=== PATIENT | female | born 1950 | race Caucasian/White ===

== ENCOUNTER → 2017-06-14 08:04 | Outpatient (CLI) | payer MEDICARE, SELFPAY ==
[2017-06-14 10:08] LABS: Basophil# 0.03 X10^3/uL; Basophil% 0.5 % (0-1); Eosinophil# 0.15 X10^3/uL; Eosinophils% 2.5 % (0-5); Hematocrit 26.4 % (37-47); Hemoglobin 8.1 g/dl (12.0-15.0); Lymphocyte % 38.5 % (19-41); Mean Corp Hgb Conc 30.7 g/gl (32-36); Mean Corpuscular Hgb 27.8 pg (27.0-32.0); Mean Corpuscular Volume 90.7 fL (81-99); Mean Platelet Vol. 11.2 fl (6.2-12.0); Monocyte# 0.44 X10^3/uL; Monocyte% 7.4 % (0-10); Neutrophil # 3.04 X10^3/uL (2.7-7.7); Neutrophil % 50.9 % (47-70); Platelet Count 289 K/mm3 (150-450); RBC Distribution Width CV 14.6 % (11.6-14.6); RBC Distribution Width SD 47.6 fl (35.1-43.9); Red Blood Count 2.91 M/mm3 (4.2-5.4)
[2017-06-14 10:13] LABS: POSITIVE COUNT NO; POSITIVE DIFFERENTIAL NO; POSITIVE MORPHOLOGY NO
[2017-06-14 10:19] LABS: Anion Gap 7 (5-15); BUN 12 mg/dL (7-18); Calcium,Total 8.3 mg/dL (8.5-10.1); Chloride 110 mmol/L (98-107); Creatinine, Serum 0.86 mg/dL (0.55-1.02); EST Glomerular Filtration Rate 71 mL/min (>60); Est Glom Filt Rate - Afr Amer 85 mL/min (>60); Glucose 99 mg/dL (70-110); Sodium Level 143 mmol/L (136-145)
[2017-06-14 10:31] LABS: International Normalized Ratio 2.5; Prothrombin Time (Protime)PT. 25.6 SECONDS (11.7-14.9)
== END ==
PROVIDERS: Family Provider Family Medicine; PCP Family Medicine; Visit Provider Family Medicine
DX: R10.13 Epigastric pain (principal); Z79.01 Long term (current) use of anticoagulants
CPT/HCPCS: 36415; 80048; 85025; 85610

== ENCOUNTER → 2017-06-17 07:00 | Outpatient (CLI) | payer MEDICARE, SELFPAY ==
[2017-06-17 11:23] LABS: International Normalized Ratio 1.6; Prothrombin Time (Protime)PT. 18.2 SECONDS (11.7-14.9)
== END ==
PROVIDERS: Family Provider Family Medicine; PCP Family Medicine; Visit Provider Family Medicine
DX: D64.9 Anemia, unspecified (principal)
CPT/HCPCS: 36415; 85610

== ENCOUNTER → 2017-06-18 08:30 | Outpatient (CLI) | payer MEDICARE, SELFPAY ==
[2017-06-18 09:46] LABS: Absolute Lymphocyte Count 2.75 X10^3/ul (0.83-4.51); Absolute Neutrophil Count 3.7 X10^3/uL (2.0-7.7); Basophil# 0.04 X10^3/uL; Basophil% 0.6 % (0-1); Eosinophil# 0.16 X10^3/uL; Eosinophils% 2.2 % (0-5); Hematocrit 28.7 % (37-47); Hemoglobin 8.7 g/dl (12.0-15.0); Lymphocyte # 2.75 X10^3/ul (4.0); Lymphocyte % 38.5 % (19-41); Mean Corp Hgb Conc 30.3 g/gl (32-36); Mean Corpuscular Hgb 27.4 pg (27.0-32.0); Mean Corpuscular Volume 90.3 fL (81-99); Mean Platelet Vol. 10.2 fl (6.2-12.0); Monocyte# 0.49 X10^3/uL; Monocyte% 6.9 % (0-10); Neutrophil % 51.8 % (47-70); Platelet Count 394 K/mm3 (150-450); RBC Distribution Width CV 14.1 % (11.6-14.6); RBC Distribution Width SD 46.8 fl (35.1-43.9); Red Blood Count 3.18 M/mm3 (4.2-5.4); White Blood Count 7.1 K/mm3 (4.4-11.0)
[2017-06-18 09:48] LABS: POSITIVE COUNT NO; POSITIVE DIFFERENTIAL NO; POSITIVE MORPHOLOGY NO
[2017-06-18 10:10] LABS: Ferritin 10 ng/mL (8-252); Iron 23 ug/dL (50-170); Iron Binding Capacity,Total 342 ug/dL (250-450)
[2017-06-19 10:00] LABS: Vitamin B12 178 pg/mL (211-911)
== END ==
PROVIDERS: Family Provider Family Medicine; PCP Family Medicine; Visit Provider Family Medicine
DX: D64.9 Anemia, unspecified (principal)
CPT/HCPCS: 82607; 82728; 82746; 83540; 83550; 85025

== ENCOUNTER 2017-06-27 11:32 | Day surgery (SDC) | payer MEDICARE, SELFPAY ==
[2017-06-27] VITALS (7 sets, daily range): BP systolic 93–127; BP diastolic 61–90; PULSE 75–114; RESP 16; TEMP 36.3–36.9; O2SAT 98–100; BMI 42.3
--- NOTE | 2017-06-27 | IMM_PTH ---
PATIENT: TIKA BAKER LOC: EN U#:[id number] AGE/SX: 67/F ROOM: RE06/27/[address]: Dr. Lizeth Hernandez MD : 1950 BED: DIS: 06/27/2017 SPEC #: [id number] RECD: 06/28/17 11:42 STATUS: ANA REQ #: [id number] SILVIA: 06/27/17 00:[address]: Lizeth Hernandez DEPT: IMMUNOHISTOCHEMISTRY RECD BY: Gemma Simon ENTERED: 06/28/17 11:43 SP TYPE: IMMUNO OTHR DR: Dr. Paco Wilson MD Tissues: Stomach, NOS Procedures: H Pylori (initial) PHYSICIAN & INSTITUTION [place] [id number] SPECIMEN INFORMATION: Tissue Source: Antrum biopsy Clinical Info: Anemia and positive occult blood test Specimen Number: [id number] CPT code: 30565 METHODOLOGY: Deparaffinized sections of prefer/formalin-fixed tissue or PAP/DQ stained slides are incubated with monoclonal/polyclonal antibodies/oligonucleotide probes. Localization is made via biotin free immunoperoxidase method. Appropriate controls are performed and reacted as expected. Results on target cell population are indicated in the following table: RESULTS: ANTIBODY / CLONE RESULT H Pylori (polyclonal) negative These tests were developed and their performance characteristics determined by [facility]. They may not have been cleared or approved by the U.S. Food and Drug Administration. The FDA has determined that such clearance or approval is not necessary. INTERPRETATION: Antrum biopsy: Negative for Helicobacter pylori organisms. BRIA:montez 06/28/17
[2017-06-27 12:00] LABS: Prothrombin Time Fingerstick 12.7 SEC (11.9-14.4)
--- NOTE | 2017-06-27 12:32 | EGD_PTH ---
PATIENT: TIKA BAKER LOC: EN U#:[id number] AGE/SX: 67/F ROOM: RE06/27/[address]: Dr. Lizeth Hernandez MD : 1950 BED: DIS: 06/27/2017 SPEC #: [id number] RECD: 06/27/17 13:37 STATUS: ANA JOHN #: [id number] SILVIA: 06/27/17 12:[address]: Lizeth Hernandez DEPT: SURGICAL PATHOLOGY RECD BY: Harshil Ghotra ENTERED: 06/27/17 14:12 SP TYPE: EGD BIOPSY OTHR DR: Dr. Paco Wilson MD Tissues: Gastric mucous membrane Procedures: Surgery Specimen Level IV HEADER OPERATION: EGD with biopsy PRE-OP DIAGNOSIS: Anemia and positive occult blood test TISSUE SUBMITTED: Antrum biopsy for path and H. pylori MICROSCOPIC DIAGNOSIS Antrum, biopsy: Mild gastritis. SJ:montez 06/28/17 COMMENT The results of immunohistochemistry for Helicobacter pylori will be reported separately ([id number]). MICROSCOPIC DESCRIPTION Slides are reviewed. The specimen shows fragments of gastric mucosa with chronic inflammatory cell infiltrates in the lamina propria consisting of lymphocytes and plasma cells, consistent with mild chronic gastritis. GROSS DESCRIPTION Received in fixative is one container labeled with the patient's name and designated antrum biopsy for path and H. pylori. The specimen consists of one irregular fragment of light nassar soft tissue that measures 0.4 x 0.2 x 0.1 cm. The specimen is totally submitted in one cassette. / SJ:rg 06/27/17 TC:3 CPT: 15147
--- NOTE | 2017-06-28 12:53 | PCM.OPRPT ---
Report of Operation Date of Procedure: 06/28/17 Pre-Operative Diagnosis: Anemia, dark stools Post-Operative Diagnosis: Mild gastritis, small hiatal hernia, normal colon Surgery/Procedure Performed:: EGD with biopsy, colonoscopy Type of Anesthesia:: MAC Anesthesiologist: Christiano Sosa Specimen's removed: 1. Antral biopsy Estimated Blood Loss (mL): Minimal Description of Procedure: Procedure: EGD biopsy After obtaining informed consent, the endoscope was passed under direct visualization. Throughout the procedure, patient's blood pressure, pulse, oxygen saturations were monitored continuously by anesthesia. The endoscope was introduced through the mouth and advanced to the 2nd part of the duodenum. The upper GI endoscopy was accomplished without difficulty. Patient tolerated procedure well. Findings: Small hiatal hernia was present about 2-3 cm. Mild erythematous mucosa found gastric antrum. Biopsies were taken with cold biopsy for histology. Estimated blood loss was minimal. The duodenum was normal. Impression: 1. Small hiatal hernia 2. Mild erythematous mucosa in the antrum. Biopsied. 3. Normal examined duodenum Recommendations: Await biopsy, obvious source of bleeding Procedure: Colonoscopy After reviewing the risks benefits, the patient was deemed in satisfactory condition to undergo procedure. After obtaining informed consent, the scope was passed under direct visualization. Throughout the procedure, the patient's blood pressure pulse and position saturations were monitored continuously anesthesia. The colonoscope was introduced through the anus and advanced to the cecum, identified by the appendiceal orifice, IC valve and transillumination. The colonoscopy was performed without difficulty. The patient tolerated procedure well. Quality of bowel prep was good. Findings: The perianal and digital rectal exam were normal. The colon (entire examined portion) appeared normal. Retroflexed view of the distal rectum and anal verge was normal and showed no anal or rectal abnormalities Impression: 1. The entire colon is normal. 2. The distal rectal and anal verge were normal on retroflexed view. Recommendations: Repeat colonoscopy in 10 years for screening purposes depending on overall health at that time. - Complications none
== END 2017-06-27 14:10 | disposition home or self-care (01) ==
LOC: EN 11:32 → AC 11:34
PROVIDERS: Family Provider Family Medicine; PCP Family Medicine; Visit Provider Surgery
PROC: 0DJD8ZZ Inspection of Lower Intestinal Tract, Via Natural or Artificial Opening Endoscopic (ICD-10-PCS; CPT 45378; principal; 2017-06-27 12:30)
DX: K29.70 Gastritis, unspecified, without bleeding (principal); K44.9 Diaphragmatic hernia without obstruction or gangrene; D64.9 Anemia, unspecified; I10 Essential (primary) hypertension; E78.5 Hyperlipidemia, unspecified; Z86.718 Personal history of other venous thrombosis and embolism; K58.1 Irritable bowel syndrome with constipation; J45.909 Unspecified asthma, uncomplicated; Z87.19 Personal history of other diseases of the digestive system; Z78.0 Asymptomatic menopausal state; Z96.653 Presence of artificial knee joint, bilateral; Z79.01 Long term (current) use of anticoagulants; Z79.899 Other long term (current) drug therapy
CPT/HCPCS: 43239; 45378; 36416; 85610; 88305; 88342; J7120

== ENCOUNTER → 2017-07-02 09:36 | Outpatient (CLI) | payer MEDICARE, SELFPAY ==
[2017-07-02 12:32] LABS: Hematocrit 28.1 % (37-47); Hemoglobin 8.3 g/dl (12.0-15.0); Mean Corp Hgb Conc 29.5 g/gl (32-36); Mean Corpuscular Hgb 26.2 pg (27.0-32.0); Mean Corpuscular Volume 88.6 fL (81-99); Mean Platelet Vol. 11.1 fl (6.2-12.0); Platelet Count 281 K/mm3 (150-450); RBC Distribution Width CV 14.1 % (11.6-14.6); Red Blood Count 3.17 M/mm3 (4.2-5.4); Scan Indicated on CBC? Y/N NO
[2017-07-02 12:35] LABS: Prothrombin Time (Protime)PT. 12.6 SECONDS (11.7-14.9)
== END ==
PROVIDERS: Family Provider Family Medicine; PCP Family Medicine; Visit Provider Family Medicine
DX: I82.409 Acute embolism and thrombosis of unspecified deep veins of unspecified lower extremity (principal)
CPT/HCPCS: 36415; 85027; 85610

== ENCOUNTER → 2017-07-15 10:33 | Outpatient (CLI) | payer MEDICARE, SELFPAY ==
[2017-07-15 12:21] LABS: Absolute Lymphocyte Count 1.68 X10^3/ul (0.83-4.51); Absolute Neutrophil Count 3.2 X10^3/uL (2.0-7.7); Basophil# 0.02 X10^3/uL; Basophil% 0.4 % (0-1); Eosinophil# 0.13 X10^3/uL; Eosinophils% 2.4 % (0-5); Hematocrit 33.4 % (37-47); Hemoglobin 9.9 g/dl (12.0-15.0); Lymphocyte # 1.68 X10^3/ul (4.0); Lymphocyte % 30.4 % (19-41); Mean Corp Hgb Conc 29.6 g/gl (32-36); Mean Corpuscular Volume 87.7 fL (81-99); Mean Platelet Vol. 10.6 fl (6.2-12.0); Monocyte# 0.48 X10^3/uL; Monocyte% 8.7 % (0-10); Neutrophil # 3.22 X10^3/uL (2.7-7.7); Neutrophil % 58.1 % (47-70); Platelet Count 310 K/mm3 (150-450); RBC Distribution Width CV 17.5 % (11.6-14.6); Red Blood Count 3.81 M/mm3 (4.2-5.4); White Blood Count 5.5 K/mm3 (4.4-11.0)
[2017-07-15 12:35] LABS: POSITIVE COUNT NO; POSITIVE DIFFERENTIAL NO; POSITIVE MORPHOLOGY NO
== END ==
PROVIDERS: Family Provider Family Medicine; PCP Family Medicine; Visit Provider Family Medicine
DX: D51.9 Vitamin B12 deficiency anemia, unspecified (principal)
CPT/HCPCS: 36415; 85025

== ENCOUNTER → 2017-08-02 14:26 | Outpatient (CLI) | payer MEDICARE, SELFPAY ==
--- NOTE | 2017-08-02 14:28 | VDLE_ITS ---
Reason For Study: LEG PAIN RIGHT LEFT CFV is compressible, spontaneous, phasic, GSV is normal. competent and demonstrates normal CFV is compressible, spontaneous, phasic, augmentation. competent, and demonstrates normal Procedure augmentation. Exam performed in department. FV is compressible, spontaneous, phasic, A preliminary report was called and/or faxed competent and demonstrates normal to Dr. Rde. augmentation. POP V is compressible, spontaneous, phasic, competent and demonstrates normal augmentation. T/P Trunk is compressible. PTV is compressible. LT PerV is compressible. Soleus vein is dilated and non-compressible. Interpretation Summary Acute deep vein thrombosis is noted in the left soleus vein. The remainder of the left lower extremity deep venous system is patent and compressible. Valvular competence appears intact within the proximal deep venous system on the left . The left greater saphenous vein appears patent and compressible segmentally. Ordering Physician: Rafael Red Referring Physician: Lizeth Hernandez Performed By: Cinda Ballard RVT
== END ==
PROVIDERS: Family Provider Family Medicine; PCP Family Medicine; Visit Provider Family Medicine
DX: M79.89 Other specified soft tissue disorders (principal)
CPT/HCPCS: 93971

== ENCOUNTER 2017-08-02 15:02 | Emergency (ER) | payer MEDICARE, SELFPAY ==
[2017-08-02 15:03] VITALS: BP 158/115; PULSE 94; RESP 16; TEMP 36.7; O2SAT 98; BMI 43.3
--- NOTE | 2017-08-02 15:19 | EKG12_ITS ---
Test Reason : BLOOD CLOT Blood Pressure : / mmHG Vent. Rate : 080 BPM Atrial Rate : 080 BPM P-R Int : 172 ms QRS Dur : 086 ms QT Int : 370 ms P-R-T Axes : 023 -03 019 degrees QTc Int : 426 ms Normal sinus rhythm Inferior infarct , age undetermined Abnormal ECG Confirmed by MT QUIROGA ([id number]), photo editor VALDO BARNES ([id number]) on 08/05/2017 1:31:23 PM Referred By: EUSEBIA Confirmed By:MT QUIROGA
--- NOTE | 2017-08-02 15:19 | CT_ITS ---
STUDY: CTA CHEST REASON FOR EXAM: Female, 67 years old. Dyspnea, recent DVT RADIATION DOSAGE (If Supplied By Facility): CTDIvol = ( 19.00 ) mGy, DLP = ( 611.89 ) mGycm TECHNIQUE: The examination was performed with the intravenous administration of 100 ml of Isovue 370 contrast material. Post-processing of the angiographic images was performed, with multiplanar reformation and 3D reconstruction. Individualized dose optimization techniques were used for this CT. COMPARISON: Prior study of 01/24/2016 FINDINGS: There is limited enhancement of the main pulmonary artery and right and left pulmonary arteries. There is limited enhancement of the bilateral peripheral pulmonary arteries. Normal thoracic aorta and visualized great vessels. There is no demonstrated aortic dissection. Cardiomegaly is present. Coronary arterial calcifications are seen. There is no pericardial effusion. Normal mediastinum. Normal hilar regions. Normal visualized trachea and bronchi. The lungs are well expanded. There is a stable 6 mm nodule of the right upper lobe apex. Normal pleura. Normal chest wall structures. There are mild diffuse degenerative changes of the visualized thoracolumbar spine. There is a stable 1.7 cm cyst of the anterior left hepatic lobe. There is a small hiatal hernia. CT/CTA Chest W/WO Contrast IMPRESSION: Limited study secondary to poor opacification of the pulmonary arterial tree. There is no demonstrable evidence of pulmonary embolism. Cardiomegaly. Coronary arterial calcifications are present. Stable 6 mm nodule of the right upper lobe apex. Stable 1.7 cm cyst of the anterior left hepatic lobe. Small hiatal hernia. Electronically Signed: Sanford Maloney MD at 17:08 EDT , Service support ,
[2017-08-02 16:08] LABS: Anion Gap 8 (5-15); BUN 9 mg/dL (7-18); BUN/Creat Ratio 11.5 RATIO (10-20); Calcium,Total 8.5 mg/dL (8.5-10.1); Chloride 111 mmol/L (98-107); Creatinine, Serum 0.79 mg/dL (0.55-1.02); EST Glomerular Filtration Rate 78 mL/min (>60); Est Glom Filt Rate - Afr Amer 94 mL/min (>60); Estimated Creatinine Clearance 63.88 ml/min; Glucose 78 mg/dL (74-106); Potassium 3.8 mmol/L (3.5-5.1); Sodium Level 145 mmol/L (136-145)
[2017-08-02 16:12] LABS: Absolute Lymphocyte Count 2.45 X10^3/ul (0.83-4.51); Absolute Neutrophil Count 3.7 X10^3/uL (2.0-7.7); Basophil# 0.04 X10^3/uL; Basophil% 0.6 % (0-1); Eosinophils% 1.5 % (0-5); Hematocrit 36.1 % (37-47); Lymphocyte # 2.45 X10^3/ul (4.0); Lymphocyte % 36.2 % (19-41); Mean Corp Hgb Conc 30.5 g/gl (32-36); Mean Corpuscular Hgb 26.6 pg (27.0-32.0); Mean Corpuscular Volume 87.2 fL (81-99); Mean Platelet Vol. 11.5 fl (6.2-12.0); Monocyte% 7.4 % (0-10); Neutrophil # 3.67 X10^3/uL (2.7-7.7); Neutrophil % 54.2 % (47-70); Platelet Count 217 K/mm3 (150-450); RBC Distribution Width CV 16.7 % (11.6-14.6); RBC Distribution Width SD 52.8 fl (35.1-43.9); Red Blood Count 4.14 M/mm3 (4.2-5.4); White Blood Count 6.8 K/mm3 (4.4-11.0)
[2017-08-02 16:13] LABS: POSITIVE COUNT NO; POSITIVE DIFFERENTIAL NO; POSITIVE MORPHOLOGY NO
--- NOTE | 2017-08-02 17:36 | ED.DCSUM_ITS ---
- ER Visit Summary Date of Service: 08/02/17 Chief Complaint: DVT soleus vein left lower extremity and dyspnea at rest and exertion History of Present Illness: The patient is a 67 F who has history of PE and DVT was sent to ER to evaluate her dyspnea since she has a history of PE and DVT with recent diagnosis of left soleus DVT. She had an outpatient ultrasound performed today. She denies any chest pain of any type. She denies fever, chills night sweats. She denies cough. She denies any GI, or musculoskeletal symptoms other than left calf pain. She denies paresthesia, anesthesia or motor weakness. She recently had a GI bleed and Coumadin was discontinued. Physical Examination: Vital signs are remarkable for an elevated blood pressure 158/115; otherwise her vital signs are normal. Head is atraumatic normocephalic. Pupils are equal round reactive. Extraocular muscles are intact. TMs are pearly white with landmarks noted. Nares patent with no drainage. Posterior pharynx without erythema or exudate. Uvula is midline. There is no dysphonia or dysphasia. Trachea is midline. There is no stridor with auscultation of the neck. Heart is regular without murmur, gallop or rub. S1 and S2 are normal. Lungs are clear to auscultation with good movement of air bilaterally. Abdomen soft nontender. The left lower stomach is swollen with pain palpation the left calf. Test Results: Day of the chest was unremarkable for clot in major pulmonary vessels. EKG is normal with a rate of 80 and I am in disagreement with the computer interpretation of inferior infarct. Electric panel is normal and specifically BUN and creatinine. H&H is 11.0 and 36.1. The venous duplex study report was not available. Dr. Cara Ramirez who took the physician call in from Dr. Wilson documented the location of the clot. Emergency Department Course and Treatment: Since patient cannot be anticoagulated and complains of dyspnea and dyspnea on exertion after recent long distance trip with a proven DVT a CTA was obtained to evaluate for pulmonary embolus. Since there is no evidence of pulmonary embolus based on the literature outpatient ultrasound was ordered for August 05, August 09 and August 16. Treatment Plan: Appropriate home-going instruction and outpatient serial venous duplex studies to evaluate for propagation. Patient was informed if this does propagate into the proximal popliteal vein or femoral vein she will require a [place] filter since she cannot be anticoagulated. Disposition: Charge to home after informing Dr. Wilson of ER workup Impression: 1. DVT left soleus vein 2. Dyspnea unknown etiology 3. History of hypertension 4. History of recent significant upper GI bleed This note was generated with [employer] dictation software. It may contain incorrect words, spelling, and punctuation that were not noted in review of the chart prior to signing ED Disposition - Plan for ED Patient: Disposition: Home or Assisted Living Chief Complaint: Lower Extremity Injury Instructions: ED DVT Referrals: Paco Wilson MD [Primary Care Provider] - As Needed Additional Instructions: You will need to call the outpatient vascular lab to arrange for repeat ultrasound on Saturday, August 05, Saturday, August 09 and August 16.
[2017-08-02 17:47] VITALS: BP 139/76; PULSE 81; RESP 16; O2SAT 97
== END 2017-08-02 17:47 | disposition home or self-care (01) ==
PROVIDERS: Emergency Provider Emergency Medicine; Family Provider Family Medicine; PCP Family Medicine
DX: I82.4Z2 Acute embolism and thrombosis of unspecified deep veins of left distal lower extremity (principal); R06.00 Dyspnea, unspecified; I10 Essential (primary) hypertension; M79.89 Other specified soft tissue disorders; E78.00 Pure hypercholesterolemia, unspecified; Z86.718 Personal history of other venous thrombosis and embolism; Z86.711 Personal history of pulmonary embolism; Z87.19 Personal history of other diseases of the digestive system; Z79.51 Long term (current) use of inhaled steroids; Z79.899 Other long term (current) drug therapy
CPT/HCPCS: 71275; 80048; 85025; 93005; 93971; 99283; Q9967

== ENCOUNTER → 2017-08-05 13:48 | Outpatient (CLI) | payer MEDICARE, SELFPAY ==
--- NOTE | 2017-08-05 14:06 | VDLE_ITS ---
Reason For Study: F/U LLE DVt Procedure LEFT Exam performed in department. GSV is normal. A preliminary report was called and/or faxed CFV is compressible, spontaneous, phasic, to Dr. Wilson. competent, and demonstrates normal augmentation. FV is compressible, spontaneous, phasic, competent and demonstrates normal augmentation. POP V is compressible, spontaneous, phasic, competent and demonstrates normal augmentation. T/P Trunk is compressible. PTV is compressible. LT PerV is compressible. Soleus vein dilated and non-compressible. No change from previous exam. Interpretation Summary Acute deep vein thrombosis is noted in the left soleus vein. The remainder of the left lower extremity deep venous system is patent and compressible. Valvular competence appears intact within the proximal deep venous system on the left . The left greater saphenous vein appears patent and compressible segmentally. There has been no change since a previous study on 08/02/2017. Ordering Physician: Lalo Hopkins Referring Physician: Paco Wilson Performed By: Cinda Ballard RVT
== END ==
PROVIDERS: Family Provider Family Medicine; PCP Family Medicine; Visit Provider Emergency Medicine
DX: I82.4Z2 Acute embolism and thrombosis of unspecified deep veins of left distal lower extremity (principal)
CPT/HCPCS: 93971

== ENCOUNTER → 2017-08-09 14:02 | Outpatient (CLI) | payer MEDICARE, SELFPAY ==
--- NOTE | 2017-08-09 14:04 | VDLE_ITS ---
Reason For Study: DVT Procedure LEFT Exam performed in department. GSV is normal. A preliminary report was called and/or CFV is compressible, spontaneous, phasic, faxed to DR JEAN-BAPTISTE. competent, and demonstrates normal augmentation. FV is compressible, spontaneous, phasic, competent and demonstrates normal augmentation. POP V is compressible, spontaneous, phasic, competent and demonstrates normal augmentation. T/P Trunk is compressible. PTV is compressible. LT PerV is compressible. RT Soleus V is dilated and noncompressible. Interpretation Summary Acute deep vein thrombosis is noted in the left soleus vein. The remainder of the left lower extremity deep venous system is patent and compressible. Valvular competence appears intact within the proximal deep venous system on the left . The left greater saphenous vein appears patent and compressible segmentally. There has been no significant change since a previous study on 08/05/2017. Ordering Physician: Lalo Hopkins Referring Physician: MARIA G JEAN-BAPTISTE Performed By: Kiki Garcia, RDCS, RVT
== END ==
PROVIDERS: Family Provider Family Medicine; PCP Family Medicine; Visit Provider Emergency Medicine
DX: I82.4Z2 Acute embolism and thrombosis of unspecified deep veins of left distal lower extremity (principal)
CPT/HCPCS: 93971

== ENCOUNTER → 2017-08-12 08:34 | Outpatient (CLI) | payer MEDICARE, SELFPAY ==
[2017-08-12 10:15] LABS: Absolute Lymphocyte Count 2.43 X10^3/ul (0.83-4.51); Basophil# 0.04 X10^3/uL; Basophil% 0.7 % (0-1); Eosinophil# 0.15 X10^3/uL; Eosinophils% 2.4 % (0-5); Hematocrit 39.3 % (37-47); Hemoglobin 12.1 g/dl (12.0-15.0); Lymphocyte # 2.43 X10^3/ul (4.0); Lymphocyte % 39.6 % (19-41); Mean Corp Hgb Conc 30.8 g/gl (32-36); Mean Corpuscular Hgb 26.7 pg (27.0-32.0); Mean Corpuscular Volume 86.6 fL (81-99); Mean Platelet Vol. 11.3 fl (6.2-12.0); Monocyte# 0.55 X10^3/uL; Neutrophil # 2.95 X10^3/uL (2.7-7.7); Neutrophil % 48.1 % (47-70); Platelet Count 287 K/mm3 (150-450); RBC Distribution Width CV 16.2 % (11.6-14.6); RBC Distribution Width SD 51.4 fl (35.1-43.9); Red Blood Count 4.54 M/mm3 (4.2-5.4); White Blood Count 6.1 K/mm3 (4.4-11.0)
[2017-08-12 10:21] LABS: POSITIVE COUNT NO; POSITIVE DIFFERENTIAL NO; POSITIVE MORPHOLOGY NO
== END ==
PROVIDERS: Visit Provider Family Medicine
DX: D53.1 Other megaloblastic anemias, not elsewhere classified (principal)
CPT/HCPCS: 36415; 85025

== ENCOUNTER → 2017-08-16 12:51 | Outpatient (CLI) | payer MEDICARE, SELFPAY ==
--- NOTE | 2017-08-16 12:53 | VDLE_ITS ---
Reason For Study: F/U LLE Soleus V clot Procedure LEFT Exam performed in department. GSV is normal. A preliminary report was called and/or faxed CFV is compressible, spontaneous, phasic, to Dr. Wilson. competent, and demonstrates normal augmentation. FV is compressible, spontaneous, phasic, competent and demonstrates normal augmentation. POP V is compressible, spontaneous, phasic, competent and demonstrates normal augmentation. T/P Trunk is compressible. PTV is compressible. LT PerV is compressible. Soleus V remains non-compressible. No change from previous exam. Interpretation Summary Acute deep vein thrombosis is noted in the left soleus vein. The remainder of the left lower extremity deep venous system is patent and compressible. Valvular competence appears intact within the proximal deep venous system on the left . The left greater saphenous vein appears patent and compressible segmentally. There has been no significant change since a previous study on 08/09/2017. Ordering Physician: Lalo Hopkins Referring Physician: Paco Wilson Performed By: Cinda Ballard RVT
== END ==
PROVIDERS: Family Provider Family Medicine; PCP Family Medicine; Visit Provider Emergency Medicine
DX: I82.4Z2 Acute embolism and thrombosis of unspecified deep veins of left distal lower extremity (principal)
CPT/HCPCS: 93971

== ENCOUNTER → 2017-11-14 17:25 | Outpatient (CLI) | payer MEDICARE, SELFPAY ==
--- NOTE | 2017-11-14 17:28 | CT_ITS ---
STUDY: CT LEFT FOOT REASON FOR EXAM: Female, 67 years old. Osteoarthritis, preop RADIATION DOSAGE (If Supplied By Facility): CTDIvol = ( 15.35 ) mGy, DLP = ( 315.38 ) mGycm TECHNIQUE: Thin section transaxial imaging of the foot was obtained, with sagittal and coronal reconstructed images. Individualized dose optimization techniques were used for this CT. COMPARISON: None. FINDINGS: There is a plantar calcaneal spur. A small enthesophyte is seen at the insertion of the Achilles tendon. There is some joint space narrowing of the calcaneal cuboid joint. There is some sclerosis of the talocalcaneal joint. Degenerative changes are seen within the cuneiforms, with sclerosis and subchondral cysts, greatest at the second and third tarsometatarsal joints. There is mild joint space narrowing at the first tarsal metatarsal joint. Normal metatarsi. Normal metatarsophalangeal joint of the great toe. Normal tibial and fibular sesamoid bones. Normal interphalangeal joint of the great toe. Normal phalanges of the great toe. Normal second through fifth metatarsophalangeal joints. Normal interphalangeal joints and phalanges of the lesser toes. The soft tissue structures are unremarkable. There is no acute fracture. CT/Extremity Lower without Contra IMPRESSION: Degenerative changes within the midfoot, as described above. No acute fracture. Electronically Signed: Garett Oliva DO at 13:10 EDT Tel , Service support ,
== END ==
PROVIDERS: Family Provider Family Medicine; PCP Family Medicine
DX: M19.079 Primary osteoarthritis, unspecified ankle and foot (principal)
CPT/HCPCS: 73700

== ENCOUNTER → 2017-11-18 10:49 | Outpatient (CLI) | payer MEDICARE, SELFPAY ==
[2017-11-18 11:57] LABS: Absolute Lymphocyte Count 1.91 X10^3/ul (0.83-4.51); Absolute Neutrophil Count 2.5 X10^3/uL (2.0-7.7); Basophil# 0.03 X10^3/uL; Basophil% 0.6 % (0-1); Eosinophil# 0.11 X10^3/uL; Eosinophils% 2.2 % (0-5); Hematocrit 42.8 % (37-47); Hemoglobin 13.5 g/dl (12.0-15.0); Lymphocyte # 1.91 X10^3/ul (4.0); Lymphocyte % 39.1 % (19-41); Mean Corp Hgb Conc 31.5 g/gl (32-36); Mean Corpuscular Hgb 27.2 pg (27.0-32.0); Mean Corpuscular Volume 86.1 fL (81-99); Mean Platelet Vol. 11.4 fl (6.2-12.0); Monocyte# 0.34 X10^3/uL; Neutrophil # 2.49 X10^3/uL (2.7-7.7); Neutrophil % 50.9 % (47-70); Platelet Count 228 K/mm3 (150-450); RBC Distribution Width SD 47.2 fl (35.1-43.9); Red Blood Count 4.97 M/mm3 (4.2-5.4); White Blood Count 4.9 K/mm3 (4.4-11.0)
[2017-11-18 11:58] LABS: POSITIVE COUNT NO; POSITIVE DIFFERENTIAL NO; POSITIVE MORPHOLOGY NO
[2017-11-18 12:22] LABS: Vitamin D,25 Hydroxy 17.6 ng/mL (29.95-100.01)
[2017-11-18 12:35] LABS: Anion Gap 7 (5-15); BUN 14 mg/dL (7-18); BUN/Creat Ratio 15.8 RATIO (10-20); Chloride 108 mmol/L (98-107); Cholesterol 171 mg/dL (200); Creatinine, Serum 0.89 mg/dL (0.55-1.02); EST Glomerular Filtration Rate 68 mL/min (>60); Est Glom Filt Rate - Afr Amer 82 mL/min (>60); Glucose 86 mg/dL (74-106); High Density Lipoprotein 51 mg/dL; Potassium 4.3 mmol/L (3.5-5.1); Sodium Level 143 mmol/L (136-145); Thyroid Stim Hormone (TSH) 1.76 uIU/mL (0.358-3.74); Triglycerides 119 mg/dL; Very Low Density Lipoprotein 24 mg/dL (5-40)
== END ==
PROVIDERS: Visit Provider Family Medicine
DX: Z00.00 Encounter for general adult medical examination without abnormal findings (principal); D53.1 Other megaloblastic anemias, not elsewhere classified
CPT/HCPCS: 36415; 80048; 80061; 82306; 84443; 85025

== ENCOUNTER 2018-02-06 17:26 | Emergency (ER) | payer MEDICARE, SELFPAY ==
[2018-02-06 17:28] VITALS: BP 127/57; PULSE 84; RESP 16; TEMP 37.6; O2SAT 98; BMI 42.8
--- NOTE | 2018-02-06 17:50 | US_ITS ---
STUDY: VENOUS DOPPLER ULTRASOUND - LEFT LOWER EXTREMITY REASON FOR EXAM: Female, 67 years old. Left lower extremity swelling TECHNIQUE: Ultrasound evaluation of the deep vein system to include yousif-scale imaging and compression was performed. Yousif-scale imaging and Doppler sonographic evaluation, including duplex spectral analysis and qualitative color flow sonography, was performed. COMPARISON: None. FINDINGS: Common Femoral Vein: Normal compression, spontaneity and augmentation. Normal color Doppler. Common Femoral Vein/Greater Saphenous Junction: Normal compression. Femoral Proximal: Normal compression. Femoral Middle: Normal compression, spontaneity and augmentation. Normal color Doppler. Femoral Distal: Normal compression. Popliteal Vein: Normal compression, spontaneity and augmentation. Normal color Doppler. Posterior Tibial Vein: Normal compression. Peroneal Vein: Normal compression. US/Venous Duplex Imag/Limited/Uni IMPRESSION: Normal venous Doppler ultrasound of the lower extremity. Electronically Signed: Shiva Frost DO at 19:30 EDT Tel [phone], Service support ,
--- NOTE | 2018-02-06 18:26 | ED.VISSUMM ---
- ER Visit Summary Date of Service: 02/06/18 Chief Complaint: Left leg swelling History of Present Illness: The patient is a 67 F who presents with complaint of left leg swelling. Patient had foot surgery at the [facility] on December 20. She was using a scooter to get around until a few weeks ago. At that time she began to use a boot orthosis and walk on her foot began to have some swelling. Past couple days as well as been significantly more worse and she has been elevating it and doing what she was told that it continues. She states she is on Eliquis and has not missed any doses for more than a month and that is due to prior DVT. Patient states that this leg does not feel like her other DVTs. She contacted her surgeon's office and was told to get a duplex ultrasound. Physical Examination: Afebrile vital signs are stable Gen: Well-nourished well-developed Head: Normocephalic atraumatic Eyes: Perrl EOMI ENT: TMs clear no rhinorrhea moist mucous membranes Neck: Supple no lymphadenopathy no JVD nontender CVS: Regular rate rhythm no murmurs normal S1-S2 Respiratory: No distress clear to auscultation bilaterally chest nontender Abdomen: Soft nontender nondistended normal bowel sounds no masses Back: Nontender Extremity: Nontender left leg measures 21 cm 2 fingerbreadths below the tibial tuberosity and the right measures 20.5 cm. There is left greater than right edema at the ankle and foot. There are no cords. Skin: Normal color no rash Neuro: alert orientated ?3 CN II-XII intact normal strength sensation reflexes gait cerebellar Psych: Normal affect normal mood Test Results: Duplex ultrasound was negative Emergency Department Course and Treatment: Patient will be discharged home. I will write for Lasix. She is to use compression stockings and elevate. She is to follow-up with her doctor Impression: 1. Lymphedema This note was generated with [employer] dictation software. It may contain incorrect words, spelling, and punctuation that were not noted in review of the chart prior to signing ED Disposition - Plan for ED Patient: Disposition: Home or Assisted Living Chief Complaint: Lower Extremity Injury Instructions: ED Lymphedema Prescriptions: Furosemide [Lasix] 20 mg PO DAILY #7 tab Referrals: Paco Wilson MD [Primary Care Provider] - 1 Week if not improving
[2018-02-06 18:35] VITALS: BP 132/78; PULSE 87; RESP 16; O2SAT 98
== END 2018-02-06 18:47 | disposition home or self-care (01) ==
PROVIDERS: Emergency Provider Emergency Medicine; Family Provider Family Medicine; PCP Family Medicine
DX: I89.0 Lymphedema, not elsewhere classified (principal); Z86.718 Personal history of other venous thrombosis and embolism; Z79.02 Long term (current) use of antithrombotics/antiplatelets
CPT/HCPCS: 93971; 99282

== ENCOUNTER → 2018-05-29 10:07 | Outpatient (CLI) | payer MEDICARE, SELFPAY ==
--- NOTE | 2018-05-29 10:10 | BI_ITS ---
MAMMOGRAPHY - BILATERAL SCREENING REASON FOR EXAM: Female, 68 years old. Routine annual screening examination. PERTINENT HISTORY: Father with breast cancer. Remote right excisional breast biopsy. TECHNIQUE: Digital bilateral breast daniel (3D mammographic acquisition) in the CC and MLO projections. 2-D mediolateral oblique (MLO) and craniocaudad (CC) views of both breasts were obtained. CAD: Full Field Digital Mammography with Computer Added Detection was performed. COMPARISON: Comparison is made with prior study dated March 12, 2016 and April 09, 2017. FINDINGS: Breast Composition: There are scattered areas of fibroglandular density. There are no dominant masses or suspicious calcifications. No other significant abnormalities are identified. There has been no significant change since the prior study. BI/SCREENING MAMM (CAD), BILAT IMPRESSION: Stable bilateral screening mammogram. Yearly follow-up mammogram recommended. (A) ASSESSMENT CATEGORY: BIRADS Category 1: Negative. A letter regarding these results will be sent to the patient by the facility within 30 days. Approximately 10% of breast cancers are not detected by mammography. A normal mammogram should not delay biopsy of a clinically suspicious abnormality. [id number] Electronically Signed: Varghese Lion MD at 14:20 EST Tel [phone], Service support ,
== END ==
PROVIDERS: Family Provider Family Medicine; PCP Family Medicine; Visit Provider Family Medicine
DX: Z12.31 Encounter for screening mammogram for malignant neoplasm of breast (principal)
CPT/HCPCS: 77063; 77067

== ENCOUNTER 2018-09-06 06:40 | Emergency (ER) | payer MEDICARE, SELFPAY ==
[2018-09-06 06:40] VITALS: BMI 42.3
[2018-09-06 06:41] VITALS: BP 183/119; PULSE 121; RESP 22; TEMP 36.8; O2SAT 99; BMI 43.2
--- NOTE | 2018-09-06 07:13 | ED.VISSUMM ---
- ER Visit Summary Date of Service: 09/06/18 Chief Complaint: Left lumbar back pain History of Present Illness: The patient is a 68 F who has left lumbar back pain. 6 days ago this pain started to get worse. Is been intermittent but now it is constant. It sharp in the left lumbar area. It does not radiate. Movement makes it worse and remaining still makes it better. Denies any numbness or tingling. No radiation to the legs. Denies any bowel or bladder incontinence. She describes the pain as spasms. She tried Tylenol and Flexeril but it did not help. She does have a walker at home to help her ambulate. Physical Examination: Vital signs are reviewed. HEENT exam unremarkable. Heart is tachycardic and regular rhythm without murmurs. Lungs are clear. Abdomen is soft. Her back is tender in the left lumbar paraspinal area. There is no midline tenderness. Her neurologic exam including reflexes is normal. Test Results: None performed Emergency Department Course and Treatment: The patient was given morphine and Norflex. Upon reevaluation she was much improved. She is requesting to go home with some medications. She is allergic to many narcotic pain medications. I will give her Toradol along with Zanaflex. She will follow-up with her PCP. Treatment Plan: [] Disposition: Discharge Impression: Lumbar strain This note was generated with [employer] dictation software. It may contain incorrect words, spelling, and punctuation that were not noted in review of the chart prior to signing ED Disposition - Plan for ED Patient: Referrals: Paco Wilson MD [Primary Care Provider] -
[2018-09-06] MEDS: Morphine 4 MG/ML Syringe SC (07:31)
[2018-09-06] MEDS: Orphenadrine 60 MG/2 ML Ampul IM (07:31)
--- NOTE | 2018-09-06 07:57 | ED.DEP ---
ED Disposition - Plan for ED Patient: Disposition: Home or Assisted Living Instructions: ED Neck Back Pain General Prescriptions: Ketorolac [Toradol] 10 mg PO Q6H #12 tab Tizanidine HCl [Zanaflex] 4 mg PO TID #20 tab Referrals: Paco Wilson MD [Primary Care Provider] -
[2018-09-06 08:11] VITALS: BP 140/68; PULSE 76; RESP 18; O2SAT 96
== END 2018-09-06 08:18 | disposition home or self-care (01) ==
PROVIDERS: Emergency Provider Emergency Medicine; Family Provider Family Medicine; PCP Family Medicine
DX: S39.012A Strain of muscle, fascia and tendon of lower back, initial encounter (principal); I10 Essential (primary) hypertension; M19.90 Unspecified osteoarthritis, unspecified site; J45.909 Unspecified asthma, uncomplicated; Z86.718 Personal history of other venous thrombosis and embolism; Z79.51 Long term (current) use of inhaled steroids; Z79.02 Long term (current) use of antithrombotics/antiplatelets; Z79.899 Other long term (current) drug therapy; X58.XXXA Exposure to other specified factors, initial encounter; Y93.89 Activity, other specified; Y92.89 Other specified places as the place of occurrence of the external cause; Y99.8 Other external cause status
CPT/HCPCS: 96372; 99282

== ENCOUNTER → 2019-01-05 | Outpatient (CLI) | payer MEDICARE, SELFPAY ==
--- NOTE | 2019-01-05 11:04 | MRI_ITS ---
HISTORY:SHARP PAIN LATERAL, ANKLE/TARSAL SWELLING X 6MONTHS, PERONEAL TENDINITIS MRI EXAMINATION OF THE Left ANKLE COMPARISON: CT of the left foot obtained on November 14, 2017 TECHNIQUE: Axial T1, T2, 3D gradient echo, STIR, coronal fat-suppressed T2 and sagittal T1 and STIR # of images including paperwork:384 FINDINGS: BONES; postsurgical changes with screws noted within the midfoot incompletely visualized. These are seen in the region of the base of the second and third metatarsal bases as well as the middle and lateral cuneiforms. Subchondral cyst formation and subchondral edema seen at the distal cuneiform and the base of the fourth metatarsal. Also at the base of the fifth metatarsal with osteophyte formation. Subchondral cysts are also seen at the base of the first metatarsal and within the medial cuneiform. There is edema within the medial cuneiform there is most marked at the dorsal surface with spurring seen at the dorsal aspect of the first tarsometatarsal joint. TIBIOTALAR JOINT: There is a minimal joint effusion.. Osteochondral surfaces of the tibiotalar joint are unremarkable. No loose bodies. SUBTALAR JOINT: There is no subtalar joint effusion. Osteochondral sufaces are intact. No loose bodies. Fluid is seen extending dorsal to the anterior lateral talus compatible with a gait and cyst. This is deep to the extensor digitorum tendons OTHER TARSAL JOINTS: The remainter of the visualized joint of the hindfoot and midfoot show no narrowing or effusion. LIGAMENTS: The anterior tibiofibular ligament is thickened and irregular suspect for chronic partial tear.. The posterior tlbiofilular ligament also appears mildly thickened suspect for chronic sprain The anterior talofibular ligament thickened suspect for chronic partial tear. The posterior talofibular ligament is intact. The calcaneofibular ligament is intact. The deltoid ligaments are intact. Spring ligament is intact. The ligaments of the tarasal sinus are intact. TENDONS: The extensor tendons are intact. There is fluid surrounding the peroneus longus and brevis tendons just proximal to the ankle joint compatible with tenosynovitis. The retinaculum is intact Fluid is also seen surrounding the flexor hallucis longus tendon posterior to the tibia and the talus and extending distally past the master knot of Naif. This is compatible with tenosynovitis. This also surrounds the flexor digitorum tendons at the master knot of Naif. Minimal fluid is seen surrounding the flexor digitorum and the posterior tibial tendon at the level of the medial malleolus. This is also seen adjacent to the posterior tibial tendon just proximal to its navicular insertion The Achilles tendon is intact PLANTAR APONEUROSIS: The plantar aponeurosis is unremarkable. NEUROVASCULAR STRUCTURES: The posterior tibial neurovascular bundle appears normal, without intinsic or extrinsic masses or foci or signal alteration. IMPRESSION: Minimal tenosynovitis of the peroneal tendons just proximal to the ankle joint. The retinaculum is intact There is fluid that is seen deep to the extensor digitorum tendons at the level of the distal talus compatible with ganglion cyst Tenosynovitis involving the flexor hallucis tendon as well as the flexor digitorum tendon as discussed. This is most marked involving the flexor hallucis tendon. Minimal tenosynovitis involving the posterior tibial tendon Midfoot arthrodesis as discussed Degenerative changes are seen within the midfoot as discussed Probable chronic partial tear involving the anterior tibiofibular and talofibular ligaments as well as the posterior tibiofibular ligament. Dorsal lateral subcutaneous soft tissue swelling from the midfoot distally at 2255 Reported and signed by: Yue Rodas DO Electronically Signed: Yue Rodas DO at 21:54 EDT Tel , Service support , MRI/Lower Ext Joint Only (Routine)
== END | disposition home or self-care (01) ==
PROVIDERS: Family Provider Family Medicine; PCP Family Medicine
DX: M76.72 Peroneal tendinitis, left leg (principal)
CPT/HCPCS: 73721

== ENCOUNTER → 2019-06-02 13:08 | Outpatient (CLI) | payer MEDICARE, SELFPAY ==
--- NOTE | 2019-06-02 13:10 | BI_ITS ---
MAMMOGRAPHY - BILATERAL SCREENING REASON FOR EXAM: Female, 69 years old. Routine annual screening examination. PERTINENT HISTORY: Father with breast cancer. Remote right excisional breast biopsy. TECHNIQUE: Digital bilateral breast uriel (3D mammographic acquisition) in the CC and MLO projections. 2-D mediolateral oblique (MLO) and craniocaudad (CC) views of both breasts were obtained. CAD: Full Field Digital Mammography with Computer Added Detection was performed. COMPARISON: Comparison is made with prior study dated November 19, 20092018 and April 09, 2017. FINDINGS: Breast Composition: There are scattered areas of fibroglandular density. There are no dominant masses or suspicious calcifications. No other significant abnormalities are identified. There has been no significant change since the prior study. BI/SCREEN MAMM (CAD) W/URIEL BILAT IMPRESSION: Stable bilateral screening mammogram. Yearly follow-up mammogram recommended. (A) ASSESSMENT CATEGORY: BIRADS Category 1: Negative. A letter regarding these results will be sent to the patient by the facility within 30 days. Approximately 10% of breast cancers are not detected by mammography. A normal mammogram should not delay biopsy of a clinically suspicious abnormality. [id number] Electronically Signed: Varghese Lion, at 15:07 EST , Service support ,
== END ==
PROVIDERS: Family Provider Family Medicine; PCP Family Medicine; Referring Provider Family Medicine; Visit Provider Family Medicine
DX: Z12.31 Encounter for screening mammogram for malignant neoplasm of breast (principal)
CPT/HCPCS: 77063; 77067

== ENCOUNTER → 2020-05-25 07:15 | Outpatient (CLI) | payer MEDICARE, SELFPAY ==
[2020-05-02 10:12] VITALS: BMI 43.4
--- NOTE | 2020-05-25 07:21 | MRI_ITS ---
STUDY: MRI LUMBAR SPINE WITHOUT CONTRAST REASON FOR EXAM: Female, 70 years old. stabbing and burning L lower back pain TECHNIQUE: Standardized fat and water weighted pulse sequences were obtained in the sagittal and axial planes. COMPARISON: X-ray 05/02/2020 FINDINGS: T12-L1: Moderate broad disc protrusion asymmetric to the right produces moderate spinal stenosis and mild right neural foraminal stenosis. Normal lumbar lordosis. There is no substantial scoliosis. Normal conus medullaris that terminates at the L1. L1-2: Normal endplates. Normal disc height, hydration and morphology. Normal bilateral facet joints. Normal central canal and bilateral lateral recesses. Normal bilateral intervertebral neural foramina. L2-3: Disc desiccation but no disc protrusion, spinal stenosis, or neural foraminal stenosis. L3-4: Mild bilateral facet hypertrophy and ligament flavum hypertrophy. Moderate bilobed disc protrusion with a left paracentral annular tear produces moderate spinal stenosis with mild bilateral lateral recess stenosis and moderate bilateral neural foraminal stenosis. L4-5: Moderate bilateral facet hypertrophy. 5 mm of anterolisthesis of L4 on L5 with a mild broad disc protrusion produces mild spinal stenosis with mild bilateral lateral recess stenosis but severe bilateral neural foraminal stenosis with effacement of the exiting L4 nerve roots bilaterally. L5-S1: Normal endplates. Normal disc height, hydration and morphology. Normal bilateral facet joints. Normal central canal and bilateral lateral recesses. Normal bilateral intervertebral neural foramina. Normal visualized sacral ala. Normal visualized paraspinous soft tissue structures. MRI/Spine Lumbar (Routine) IMPRESSION: Multilevel degenerative changes, as described above. Electronically Signed: Noah Johansen MD at 8:43 EST Tel , Service support ,
== END ==
PROVIDERS: PCP Family Medicine; Referring Provider Orthopaedic Surgery; Visit Provider Orthopaedic Surgery
DX: M54.16 Radiculopathy, lumbar region (principal)
CPT/HCPCS: 72148

== ENCOUNTER → 2020-06-27 08:52 | Outpatient (CLI) | payer MEDICARE, SELFPAY ==
--- NOTE | 2020-06-27 08:54 | US_ITS ---
PROCEDURES: ULTRASOUND AORTA REASON FOR EXAM: Female, 70 years old. AAA TECHNIQUE: Ultrasound evaluation of the aorta was performed with real-time and static matt-scale imaging. COMPARISON: None. FINDINGS: There is no elongation or tortuosity of the abdominal aorta. Aorta measures: Proximal 1.8 cm. Middle 1.4 cm. Distal 1.3 cm. Aorta measure transversely: Proximal 2.0 cm. Middle 1.4 cm. Distal 1.4 cm. Right iliac artery measures: 0.9 cm. Right iliac artery measure transversely: 1.2 cm. Left iliac artery measures: 1.1 cm. Left iliac artery measure transversely: 1.1 cm. There is no demonstrated aneurysm.. US/Aorta IMPRESSION: Normal abdominal aorta. Electronically Signed: Varghese Lion MD at 14:46 EST , Service support ,
== END ==
PROVIDERS: PCP Family Medicine; Referring Provider Family Medicine; Visit Provider Family Medicine
DX: I71.9 Aortic aneurysm of unspecified site, without rupture (principal)
CPT/HCPCS: 76775

== ENCOUNTER 2020-08-01 14:59 | Outpatient (RCR) | payer MEDICARE, SELFPAY ==
--- NOTE | 2020-08-01 15:57 | HP.PTEVAL_ITS ---
Patient's Visit Information TIKA BAKER is a 70 year old F referred to Physical Therapy by Gege Gaston, ZACK-Rusty with a diagnosis of s/p lumbar fusion. Date of Evaluation: 08/01/20 Physical Therapist: Jose G Redmond, CHELOT, OCS, CSCS - Visit Plan Frequency: 1x/Week Duration: 4-6 Weeks Plan: weekly (due to high co pay) x 4-6 for. progression of HEP stretches ROM and strength core and body. 1. next session mat based core strength. 2. then overall postural and body strength. 3. then Lumbar ROM to tolerance08/21/20. 4. body mechanics/lifting technique, floor trasnfers. - Subjective Just had major back surgery by Dr. Otilio Lunsford at [facility] on 07/13/20. He did a fusion of L45, bone graft, Laminecotmies and foramonotmy. He did all this becuase she was in pain managemnet for over a year. Pain doctor sent to surgeon, Had MRI and that doctor woudl not do surgery due to h/o blood clots. Recommended opioids and pain management. Sought out Dr. Lunsford at [facility] and got in quickly. Prior to surgery pain was L LB and into L hip and buttock constantly to 8/10 with cleaning house. Did it in a Saturday and came home Saturday and has done well. [place] out last and was sore. Put on antiinflammatory since Saturday. Since then redness has gone down and feels better. Pain currently at 3/10 much of time but intermittent. Lying on side feels best. L hip hurts also but that is unusual and not related to back. Has been walking at [employer] .4 mile today which bothered L foot and felt weak. Not wering brace due to irritation in back. Sleep is interrupted 2x/night to go to bathroom, Sleeps in stretches due to discomfort. Retired. Basic aDLs are getting done. Not cooking and cleaning yet, no bending lifting twisting allowed until 08/11. Wants to be able to take bath after 08/11. Enjoys gardening [employer] and has not been able to do fo rthe last year and a half due to back. - Pain L LBP Pain Intensity (Out of 10): 3 Pain Intensity Range: 0, 9 - Objective Walks slowly and with knees slightly bent but I. Trasnfers I with UE bed and chair. Steps reciprocal with two rail today. L/S AROM ext limited and slightly tight. SB min limited, flexion not tested. Some redness around incision is tender but not in the soft tissue surrounding this. Incision is dry today and minmial scar tissue. reflexes 2/3 patella and achilles. Sensation LE WNL to gross light touch. Strength LE DF 4/5, PF 4/5, knee flexiona nd ext 4-/5, hip flexion, abd, ext 3+, core strength 3+. - slump. - SLR test. - Balance Scores Functional Gait Assessment Score: 22 % Disability: 26.6700 - Goals Goal 1:: ST: Lumbar ROM as allowed by doctor without pain or funcitonal limitations Goal Time Frame: 4-6 Weeks Goal 2:: Pt feel 75% back to normal with pain 0-1/10 at most. Goal Time Frame: 4-6 Weeks Goal 3:: Patient able to garden withotu hesitation or functional limtiations Goal Time Frame: 4-6 Weeks Goal 4:: Pt i appropr HEP to limit future problems Goal Time Frame: 4-6 Weeks Goal 5:: Oswestry score 10 or less Goal Time Frame: 4-6 Weeks - Rehabilitation Potential Physical Therapy Diagnosis: s/p lumbar fusion Rehabilitation Potential: Fair - Anticipated Interventions Patient/Client Instruction: Educate patient on: Condition, Plan of Care For the Purpose of:: To decrease pain, To increase ROM, To improve muscle performance and motor function, To increase tolerance to activity/condition/position, To improve ability of physical actions for home/community/work/leisure Therapeutic Exercise to Include: Strength training, Body mechanics, Postural training, Flexibilty training, Gait and locomotor training, Neuromotor developme nt, Passive ROM, Active ROM For the Purpose of:: To decrease pain, To increase ROM, To improve muscle performance and motor function, To increase tolerance to activity/conditi on/position, To improve gait and locomotor functions Thank you for the opportunity to evaluate your patient. For Medicare and Medicare HMO plans, please review the plan of care and approve it. It will need to be FAXED BACK to us at [phone] for Medicare purposes. For Medicare only, by signing this I certify the plan of care. Please let me know if there are questions or concerns regarding this plan of care. Physician Signature: Date:
--- NOTE | 2020-08-23 17:04 | HP.PT.NRP ---
TIKA BAKER was seen in my office for initial evaluation on 08/01/20. The following Plan of Care was established for this patient: Initial Frequency: 1x/Week Initial Duration: 4-6 Weeks Patient/Client Instruction: Educate patient on: Condition, Plan of Care For the Purpose of:: To decrease pain, To increase ROM, To improve muscle performance and motor function, To increase tolerance to activity/condition/position, To improve ability of physical actions for home/community/work/leisure Therapeutic Exercise to Include: Strength training, Body mechanics, Postural training, Flexibilty training, Gait and locomotor training, Neuromotor development, Passive ROM, Active ROM For the Purpose of:: To decrease pain, To increase ROM, To improve muscle performance and motor function, To increase tolerance to activity/condition/position, To improve gait and locomotor functions This patient was last seen in our office 08/01/20. Pertinent comments regarding their Physical therapy will appear below: Pt seen one visit and then called to cancel the rest of her visits. Will discontinue at this time due to her request. At this point I will be discontinuing this patient from physical therapy. I would be happy to see this patient again in the future if found appropriate by the physician. Thank you! Jose G Redmond, DPT, OCS, CSCS
== END 2020-08-01 19:00 | disposition home or self-care (01) ==
LOC: PT 14:59
PROVIDERS: PCP Family Medicine; Referring Provider Nurse Practitioner Acute Care; Visit Provider Nurse Practitioner Acute Care
DX: Z98.1 Arthrodesis status (principal)
CPT/HCPCS: 97110; 97162

== ENCOUNTER 2020-10-26 11:00 | Outpatient (RCR) | payer MEDICARE, SELFPAY ==
--- NOTE | 2020-10-13 16:29 | HP.PTEVAL ---
Patient's Visit Information TIKA BAKER is a 70 year old F referred to Physical Therapy by CECE Bryant with a diagnosis of S/P LUMBAR SPINAL FUSION. Date of Evaluation: 10/13/20 Physical Therapist: Deo Wang, PT, Cert MDT, OCS - Visit Plan Frequency: 2x /Week Duration: 4 Weeks Plan: AQUATIC PT FOR FOR POSTURAL EX'S,DLS ABD/BACK ,LE FLEXABLITY AND STRENGTHENING BLE - Subjective This 70 y/o female presents to physical therapy with s/p LUMBAR SPINAL FUSION. Patient underwent s/p lumbar spinal fusion on Jul [address] Brian Lunsford at [facility] Jul 16 with lumbar brace with fww. Patient has had lumbar pain about 1 1/2 year tried pain injections and didn't help. Patient had MRI showed stenosis ,spondylothesis and protruding discs. Tried PT in July but had complication with inscion bleeding thus stop PT. then seen yesterday NILO and recommended Aquatics. Patient has left low back pain . Patient denies parathesia/tingling. Coughing/sneezing-Bowel/bladder-. Patient has no abnormal pain. Patient takes tamadol as needed. Patient sleeping okay . Symptoms described as deep ache. Aggravating factors standing 45 mins ,walking 30min but has to have to lean on something ,unable to bend or lift . Affects ADL's and housework tasks. Alleviating factors tramodol. Patient has had no trauma or prior PT. Patient symptoms affects QOL and function. SOCIAL: . VOCATION: retired. - Pain Left Back Pain Intensity (Out of 10): 2 Pain Intensity Range: 10 - Objective POSTURE: mild forward posture,bilateral knee valgus. PALAPTION: tender paraspinals. SKIN: inscion well approximate. GAIT: reciprocal pattern mild forward. NEURO : denies parathesia/tingling, reflexes L3-4,L4-5,L5-S1 1/3. MMT: quads/hams 4/5,hip flexion 4-/5,hip abd 3+/5 ,ankle 4/5 ,GTE 4/5. FLEXABLITY: hams mod tight ,hip flexion 100 degrees,IR 30 dgrees. LUMBAR ROM: flexion mod tight,extension ,mod /severe ,side glides mod tight - Special Tests L/S Slump test left side: Negative L/S Slump test right side: Negative L/S Left Straight Leg Raise: Negative L/S Right Straight Leg Raise: Negative - Goals Goal 1:: Patient to be I with HEP Goal Time Frame: 4-6 Weeks Goal 2:: Patient to decrease lumbar pain by 50% or> to improve function with ADL'S Goal Time Frame: 4-6 Weeks Goal 3:: Patient to increase lumbar ROM for function of recovery Goal Time Frame: 4-6 Weeks Goal 4:: Patient to increase hip strength 4/5 to improve function with gait and housework tasks Goal Time Frame: 4-6 Weeks Goal 5:: Patient to improve back owestry score by 5 points or > to improve QOL and function Goal Time Frame: 4-6 Weeks Goal 6:: Patient to be able to stand and walk further to improve function and ADLS' Goal Time Frame: 4-6 Weeks - Rehabilitation Potential Physical Therapy Diagnosis: This patient underwent s/p bilateral laminectomy with partial facetectomies and foraminotomies L3-5,and transforaminal fusion interbody fusion left L4-5 with pain ,weakness core stabilizers and hips, tight hamstrings, poor lumbar ROM impairs walking and standing causes impairments with housework tasks thus benifit from skilled PT Rehabilitation Potential: Good - Anticipated Interventions Patient/Client Instruction: Educate patient on: Condition, Plan of Care For the Purpose of:: To decrease pain, To increase ROM, To improve muscle performance and motor function, To improve ability to perform ADL's, To increase tolerance to activity/condition/position, To improve ability of physical actions for home/community/work/leisure, To improve health of tissue, To decrease soft tissue restriction, To increase flexibility/ROM, To improve endurance, To assume or resume ADL's, To improve tolerance to ADL's Therapeutic Exercise to Include: Strength training, Endurance training, Body mechanics, Postural training, In an aquatic setting, Active ROM, Dynamic Lumbar Stabilization For the Purpose of:: To decrease pain, To increase ROM, To improve muscle performance and motor function, To improve ability to perform ADL's, To increase tolerance to activity/condition/position, To improve performance and independence with ADL's, To improve ability of physical actions for home/community/work/leisure, To improve health of tissue, To decrease soft tissue restriction, To assume or resume ADL's, To improve ability to perform tasks related to life management Thank you for the opportunity to evaluate your patient. For Medicare and Medicare HMO plans, please review the plan of care and approve it. It will need to be FAXED BACK to us at [phone] for Medicare purposes. For Medicare only, by signing this I certify the plan of care. Please let me know if there are questions or concerns regarding this plan of care. Physician Signature: Date:
--- NOTE | 2021-02-17 13:26 | HP.PTDCNRP_ITS ---
TIKA BAKER was seen in my office for initial evaluation on 10/13/20. The following Plan of Care was established for this patient: Initial Frequency: 2x /Week Initial Duration: 4 Weeks Patient/Client Instruction: Educate patient on: Condition, Plan of Care For the Purpose of:: To decrease pain, To increase ROM, To improve muscle performance and motor function, To improve ability to perform ADL's, To increase tolerance to activity/condition/position, To improve ability of physical actions for home/community/work/leisure, To improve health of tissue, To decrease soft tissue restriction, To increase flexibility/ROM, To improve endurance, To assume or resume ADL's, To improve tolerance to ADL's Therapeutic Exercise to Include: Strength training, Endurance training, Body mechanics, Postural training, In an aquatic setting, Active ROM, Dynamic Lumb ar Stabilization For the Purpose of:: To decrease pain, To increase ROM, To improve muscle performance and motor function, To improve ability to perform ADL's, To increase tolerance to activity/condition/position, To improve performance and independence with ADL's, To improve ability of physical actions for home/community/work/leisure, To improve health of tissue, To decrease soft tissue restriction, To assume or resume ADL's, To improve ability to perform tasks related to life management This patient was last seen in our office . Pertinent comments regarding their Physical therapy will appear below: Patient was seen for PT s/p lumbar laminectomy for Aquatic therapy thus is d/c At this point I will be discontinuing this patient from physical therapy. I would be happy to see this patient again in the future if found appropriate by the physician. Thank you! Deo Wang, PT, Cert MDT, OCS Balance/Gait/Functional tests - Balance/Special Test Scores Oswestry Low Back Score: 12
== END 2020-10-26 19:00 | disposition home or self-care (01) ==
LOC: PT 11:00
PROVIDERS: PCP Family Medicine; Referring Provider Nurse Practitioner Acute Care; Visit Provider Nurse Practitioner Acute Care
DX: Z98.1 Arthrodesis status (principal)
CPT/HCPCS: 97110; 97113; 97162

== ENCOUNTER → 2021-02-13 13:57 | Outpatient (CLI) | payer MEDICARE, SELFPAY ==
--- NOTE | 2021-02-13 13:59 | BI_ITS ---
MAMMOGRAPHY - BILATERAL SCREENING REASON FOR EXAM: Female, 70 years old. Routine annual screening examination. PERTINENT HISTORY: Father with breast cancer. Remote right excisional breast biopsy. TECHNIQUE: Digital bilateral breast daniel (3D mammographic acquisition) in the CC and MLO projections. 2-D mediolateral oblique (MLO) and craniocaudad (CC) views of both breasts were obtained. CAD: Full Field Digital Mammography with Computer Added Detection was performed. COMPARISON: Comparison is made with prior study dated 12/01/2019 and 05/29/2018. FINDINGS: Breast Composition: There are scattered areas of fibroglandular density. There are no dominant masses or suspicious calcifications. No other significant abnormalities are identified. There has been no significant change since the prior study. BI/SCREENING MAMM (CAD), BILAT IMPRESSION: Stable bilateral screening mammogram. Yearly follow-up mammogram recommended. (A) ASSESSMENT CATEGORY: BIRADS Category 1: Negative. A letter regarding these results will be sent to the patient by the facility within 30 days. Approximately 10% of breast cancers are not detected by mammography. A normal mammogram should not delay biopsy of a clinically suspicious abnormality. [id number] Electronically Signed: Varghese Lion MD at 15:00 EDT , Service support ,
== END ==
PROVIDERS: PCP Family Medicine; Referring Provider Family Medicine; Visit Provider Family Medicine
DX: Z12.31 Encounter for screening mammogram for malignant neoplasm of breast (principal)
CPT/HCPCS: 77067

== ENCOUNTER → 2021-05-04 10:16 | Outpatient (CLI) | payer MEDICARE, SELFPAY ==
[2021-05-04 12:48] LABS: Anion Gap 4 (5-15); BUN 15 mg/dL (7-18); BUN/Creat Ratio 20.3 RATIO (10-20); Calcium,Total 9.5 mg/dL (8.5-10.1); Chloride 111 mmol/L (98-107); Cholesterol 175 mg/dL (200); Creatinine, Serum 0.74 mg/dL (0.55-1.02); EST Glomerular Filtration Rate 83 mL/min (>60); Est Glom Filt Rate - Afr Amer 100 mL/min (>60); Glucose 97 mg/dL (74-106); High Density Lipoprotein 63 mg/dL; Potassium 3.9 mmol/L (3.5-5.1); Sodium Level 141 mmol/L (136-145); Triglycerides 92 mg/dL; Very Low Density Lipoprotein 18 mg/dL (5-40)
== END ==
PROVIDERS: PCP Family Medicine; Referring Provider Family Medicine; Visit Provider Family Medicine
DX: I10 Essential (primary) hypertension (principal)
CPT/HCPCS: 36415; 80048; 80061

== ENCOUNTER 2021-05-10 16:00 | Outpatient (RCR) | payer MEDICARE, SELFPAY ==
--- NOTE | 2021-04-27 09:56 | HP.PTEVAL_ITS ---
Patient's Visit Information TIKA BAKER is a 71 year old F referred to Physical Therapy by CECE Bryant with a diagnosis of sacroiliitis. Date of Evaluation: 04/26/21 Physical Therapist: Jonathan Michele DPT - Visit Plan Frequency: 2x /Week Duration: 6 Weeks Plan: Begin decreasing back pain, once tolerable begin strengthening of hip and core musculature to allow for better stability. Start with US to L side of SI joint, initiate neutral spine core stability (light). Progress as tolerated. I talked to her about starting a light walking program to stay active. Pt. consents. - Subjective Pt states she has a lot of pain in her back. She has gotten an injection in her spine, and states she felt no relief. Pt also states she is scheduled for a caudal injection soon. Pt is on a blood thinner, and now takes tramadol for the pain, but still is constantly in pain. 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 Pt states she is most comfortable sitting, but is able to lay down with knees bent. Ice tends to give the most relief. Pt has a history of a laminectomy w/ fusion . Pt states she her pain is primarily in her Left posterior buttocks region and it can go down her leg. Pt reports some numbness in both feet, with left being worse. In the past Pt has attempted one session of aquatic therapy and states this caused extreme soreness. - Pain Left Buttocks Pain Intensity (Out of 10): 5 Pain Intensity Range: 2, 9 - Objective POSTURE: Pt. has general flexed posture. ROM: Hip: WFL, hip flexion slightly limited on L compared to R. Thoracic: max limitations in flexion and extension, R & L rotation mod limitation, R & L sidebending mod limitation (all motions thoracic ROM provokes pain). LUMBAR SPINE: flexion mod/max loss increase NW, ext mod loss increase NW, SB mod loss increase NW. STRENGTH: RIGHT: Hip flexion 4, knee flexion 5, extension 5; LEFT: hip flexion 4- (limited by pain), knee flexion 4 (limited by pain), extension 4 (limited by pain). NEURO: reflexes 2+ bilaterally for patellar and achilles reflex, light touch WNL. GAIT: Pt. has slight flexed posture in stance/gait. Pt. has increased lateral postural sway, slight increase in contralateral hip sway. Due to high levels of pain, patient did not tolerate much special testing resulting in high levels of risk for false positives - Balance/Special Test Scores Oswestry Low Back Score: 27 Lower Extremity Functional Score: 19 - Goals Goal 1:: Pt will be independent with HEP. Goal Time Frame: 2-4 Weeks Goal 2:: Pt will be report ability to wash dishes with 0-2/10 pain to improve daily functioning. Goal Time Frame: 2-4 Weeks Goal 3:: Pt will improve all L LE strength to 4+/5 to improve stability. Goal Time Frame: 2-4 Weeks Goal 4:: Pt will improve Oswestry disability to < 30% to indicate improved daily functioning. Goal Time Frame: 2-4 Weeks Goal 5:: LTG: Pt. to be able to walk 500+ feet with 0-2/10 pain. Goal Time Frame: 4-6 Weeks Goal 6:: STG: Pt. to sleep without increase in symptoms. - Rehabilitation Potential Physical Therapy Diagnosis: limited hip ROM, L LE weakness, back/hip pain. Rehabilitation Potential: Good - Anticipated Interventions Patient/Client Instruction: Educate patient on: Condition, Plan of Care, Risk Factors, Benefits of Fitness Program For the Purpose of:: To facilitate caregiver knowledge, To improve self management, To prevent re-injury, To improve ability to perform tasks related to life management, To improve tolerance to ADL's Therapeutic Exercise to Include: Strength training, Body mechanics, Postural training, Passive ROM, Active ROM, Dynamic Lumbar Stabilization For the Purpose of:: To decrease pain, To decrease swelling/inflammation, To increase ROM, To improve ability to perform ADL's, To improve health of tissue, To increase flexibility/ROM, To assume or resume ADL's, To improve tolerance to ADL's Manual Therapy Techniques to Include: Massage, Mobilization, Passive ROM, Soft tissue mobilization For the Purpose of:: To decrease pain, To decrease swelling/inflammation, To improve ability to perform ADL's, To increase flexibility/ROM TENS: Yes Cryotherapy (ice pack, ice massage): Yes Thermo therapy (hot pack): Yes Ultrasound (thermal/non thermal): Yes For the Purpose of:: To decrease pain, To decrease swelling/inflammation, To increase ROM, To improve health of tissue, To increase flexibility/ROM, To improve health and function Thank you for the opportunity to evaluate your patient. For Medicare and Medicare HMO plans, please review the plan of care and approve it. It will need to be FAXED BACK to us at [phone] for Medicare purposes. For Medicare only, by signing this I certify the plan of care. Please let me know if there are questions or concerns regarding this plan of care. Physician Signature: Date:
== END 2021-05-10 19:00 | disposition home or self-care (01) ==
LOC: PT 16:00
PROVIDERS: PCP Family Medicine; Referring Provider Nurse Practitioner Acute Care; Visit Provider Nurse Practitioner Acute Care
DX: M46.1 Sacroiliitis, not elsewhere classified (principal)
CPT/HCPCS: 97035; 97110; 97162

== ENCOUNTER 2021-06-29 11:38 | Emergency (ER) | payer MEDICARE, SELFPAY ==
[2021-06-29 11:43] VITALS: BP 181/99; PULSE 123; RESP 16; TEMP 36.6; BMI 44.1
--- NOTE | 2021-06-29 11:47 | EKG12_ITS ---
Test Reason : CP Blood Pressure : / mmHG Vent. Rate : 113 BPM Atrial Rate : 113 BPM P-R Int : 174 ms QRS Dur : 084 ms QT Int : 306 ms P-R-T Axes : 036 -07 044 degrees QTc Int : 419 ms Sinus tachycardia Low voltage QRS Poor R wave progression Confirmed by KEELY CONTRERAS, MARIA G ([id number]), general expeditor STEFANIA ANNE ([id number]) on 06/30/2021 10:59:36 AM Referred By: CLARA Confirmed By:MARIA G RIGGS MD
[2021-06-29 11:57] VITALS: O2SAT 96
--- NOTE | 2021-06-29 12:00 | RAD_ITS ---
STUDY: X-RAY CHEST REASON FOR EXAM: Female, 71 years old. Chest pain. Chest tightness. TECHNIQUE: Single AP portable view of the chest. COMPARISON: Comparison is made with prior study dated 11/01/2012. FINDINGS: EKG electrode are seen. The lungs are clear and expanded. There is no demonstrated pleural abnormality. Normal size heart. Normal mediastinum and sonu. Normal visualized pulmonary arteries. There is atherosclerotic tortuosity of the aortic arch and descending thoracic aorta. There are degenerative changes of the visualized thoracic spine. Normal visualized ribs, clavicles, and shoulders. There is no demonstrated abnormality of the visualized soft tissue structures of the upper abdomen. RAD/Chest 1 View (Portable) IMPRESSION: No acute abnormality is seen. Electronically Signed: Varghese Lion MD at 12:19 EST ,
[2021-06-29 12:22] LABS: Absolute Lymphocyte Count 2.84 X10^3/uL (0.83-4.51); Absolute Neutrophil Count 4.6 X10^3/uL (2.0-7.7); Basophil# 0.04 X10^3/uL; Basophil% 0.5 % (0-1); Eosinophil# 0.12 X10^3/uL; Eosinophils% 1.5 % (0-5); Hemoglobin 14.2 g/dL (12.0-15.0); Lymphocyte # 2.84 X10^3/ul (0.83-4.51); Lymphocyte % 34.9 % (19-41); Mean Corp Hgb Conc 32.3 g/dL (32-36); Mean Corpuscular Hgb 28.9 pg (27.0-32.0); Mean Corpuscular Volume 89.4 fL (81-99); Mean Platelet Vol. 10.6 fl (6.2-12.0); Monocyte# 0.55 X10^3/uL; Monocyte% 6.8 % (0-10); NRBC Flagged by Analyzer 0 % (0-5); Neutrophil # 4.56 X10^3/uL (2.7-7.7); Neutrophil % 55.9 % (47-70); Platelet Count 271 K/mm3 (150-450); RBC Distribution Width CV 13.3 % (11.6-14.6); Red Blood Count 4.92 M/mm3 (4.2-5.4); White Blood Count 8.1 K/mm3 (4.4-11.0)
--- NOTE | 2021-06-29 12:25 | ED.VIS.CHEST ---
HPI History of Present Illness Chief Complaint: Chest Pain Narrative Narrative: 71-year-old female presenting with chest pain. She states it feels like a light pressure sensation in the retrosternal area. It does not radiate. Patient states this started last evening and made it difficult for her to sleep last night. She states she had some nausea but denies any dyspepsia. She states she ate barbecue chicken tenders and tater tots last night for dinner. But did not appear to upset her stomach. Patient states he has hypertension, hyperlipidemia, history of DVT. She is currently on Eliquis. Patient denies black or bloody stools. Patient denies shortness of breath. [facility] Medical History gastroenteritis Anemia Dark stools History of recurrent deep vein thrombosis (DVT) History of recurrent deep vein thrombosis (DVT) Hyperlipidemia Hypertension Irritable bowel syndrome with constipation Palpitation Sinus tachycardia Home Medications atorvastatin 10 mg tablet 10 mg PO QODAY 06/19/17 [History Last Taken Unknown] apixaban 5 mg PO BID 09/06/18 [History Last Taken Unknown] amlodipine 5 mg tablet 5 mg PO DAILY 05/02/20 [History Last Taken Unknown] lisinopril 10 mg tablet 40 mg PO DAILY 05/02/20 [History Last Taken Unknown] cholecalciferol (vitamin D3) [Vitamin D3] 50 mcg PO DAILY 06/29/21 [History Last Taken Unknown] sertraline 25 mg PO DAILY 06/29/21 [History Last Taken Unknown] Allergy/AdvReac Type Severity Reaction Status Date / Time aspirin AdvReac PASSED Verified 06/29/21 11:46 [From Talwin Compound] OUT ciprofloxacin [From Cipro] AdvReac Itching Verified 06/29/21 11:46 ciprofloxacin HCl AdvReac Itching Verified 06/29/21 11:46 [From Cipro] enoxaparin sodium AdvReac Itching Verified 06/29/21 11:46 [From Lovenox] hydrocodone AdvReac Itching Verified 06/29/21 11:46 milk AdvReac STOMACH Verified 06/29/21 11:46 CRAMPS pentazocine HCl AdvReac PASSED Verified 06/29/21 11:46 [From Talwin Compound] OUT tramadol HCl [From Ultram] AdvReac Itching Verified 06/29/21 11:46 Family History Father Cancer Heart disease CVA (cerebral vascular accident) Mother Hypertension Arthritis Ischemic stroke Dementia Surgical History H/O spinal fusion History of appendectomy History of bilateral cataract extraction History of hysterectomy History of major abdominal surgery History of toe surgery History of tonsillectomy Hx of Achilles tendon repair Status post bilateral knee replacements Status post total right knee replacement Social History household members: spouse housing: house Smoking Status: Never smoker alcohol intake: never what type of physical activity do you participate in: none do you feel safe at home: Yes ROS ROS ED Constitutional Constitutional ED: Denies chills or sweats Eyes Eyes: Denies blurry vision or change in vision ENT ENT ED: Denies rhinorrhea or sore throat Cardiovascular Cardiovascular: Reports as per HPI Respiratory/Chest Respiratory/Chest: Denies cough or dyspnea Gastrointestinal Gastrointestinal: Reports nausea; Denies abdominal pain, constipation, diarrhea or vomiting Genitourinary Genitourinary ED: Denies dysuria or hematuria Musculoskeletal Musculoskeletal: Denies arthralgias or myalgias Integumentary Denies rash Neurologic Neurologic: Denies headache(s) or weakness EXAM Physical Exam Const Vital Signs: 06/29/21 11:43 06/29/21 11:57 06/29/21 12:51 Temperature 97.9 F Temperature Source Oral Pulse Rate 123 H 83 Respiratory Rate 16 17 Respiratory Effort Normal Non-Labored Blood Pressure 181/99 H 127/83 H Blood Pressure Mean 126 97 Pulse Ox 96 Oxygen Delivery Method Room Air Room Air 06/29/21 13:30 Temperature Temperature Source Pulse Rate 80 Respiratory Rate 12 Respiratory Effort Blood Pressure 119/81 H Blood Pressure Mean 93 Pulse Ox Oxygen Delivery Method Room Air Positive obese General Appearance ED: NAD; Negative for pallor Nutritional Appearance: obese HEENT normocephalic and atraumatic Eyes PERRL and EOMs intact bilaterally Resp normal respiratory effort Effort and Inspection: respiratory distress Cardio regular rhythm Rate: tachycardic Extremity normal to inspection General Extremety ED: Negative for edema or tenderness General Extremity: Negative for edema Neuro oriented x3 Sensorium / Orientation: awake and alert Psych mental status grossly normal Skin General Skin Exam: Negative for jaundice or pallor Heart Score History: Slightly/Non-Suspicious ECG: Normal Age: >/= 65 years Troponin: >/=3 x Normal Limit Score: 4 MDM MDM MDM Narrative Medical decision making narrative: Patient presenting with retrosternal chest pressure which started last evening. She states it has been constant but has been relatively persistent. It kept her up last night she had associated symptoms of nausea. Patient denies any cardiac history. EKG is obtained and on my interpretation shows a sinus tachycardia at a ventricular rate of 113 bpm without sign of ischemic change or dysrhythmia. Patient offered pain medication but declines. She was also offered a GI cocktail and declined this as well. Patient is fully anticoagulated on Eliquis so I have low suspicion for pulmonary embolism. High-sensitivity troponin is less than 3 both times. Chest x-ray on my interpretation shows no acute cardiopulmonary process and radiologist agree. CBC and BMP are unremarkable. On reevaluation the patient still has the same discomfort. At this point she did report to me that the barbecue sauce that she used last night was very spicy. This makes me think that she likely is a GI source. She refused any medications in the ER. She was counseled she should use Pepcid [id number] for this and discontinue spicy foods. She was also counseled on other foods to avoid. Patient discharged in stable condition. Impression: 1. Chest pain noncardiac 2. Esophagitis Lab Data Attestation: I reviewed the patient's lab results. Labs: Laboratory Results - last 24 hr 06/29/21 06/29/21 06/29/21 11:45 11:45 13:52 WBC 8.1 RBC 4.92 Hgb 14.2 Hct 44.0 MCV 89.4 MCH 28.9 MCHC 32.3 RDW Std Deviation 44.0 H RDW Coeff of Jonathan 13.3 Plt Count 271 MPV 10.6 Immature Gran % (Auto) 0.400 Neut % (Auto) 55.9 Lymph % (Auto) 34.9 Rolette % (Auto) 6.8 Eos % (Auto) 1.5 Baso % (Auto) 0.5 Absolute Neuts (auto) 4.6 Absolute Lymphs (auto) 2.84 Nucleated RBC % 0 Sodium 139 Potassium 3.7 Chloride 106 Carbon Dioxide 28.0 Anion Gap 5 BUN 9 Creatinine 0.89 Estim Creat Clear Calc 53.68 Est GFR (MDRD) Af Amer 80 Est GFR (MDRD) Non-Af 66 BUN/Creatinine Ratio 10.1 Glucose 101 Calcium 9.3 Troponin I High Sens < 3 L < 3 L Radiography Diagnostic Testing: Clinical Impression(s) from Imaging Studies Chest X-Ray 06/29/21 12:00 IMPRESSION: No acute abnormality is seen. Electronically Signed: Varghese Lion MD at 12:19 EST , Discharge Plan Triage Chief Complaint: Chest Pain ED Provider: Gopi Thomas Dx/Rx/DC Orders Instructions: ED Chest Pain, Noncardiac, ED Epigastric Pain Uncertain Cause Prescriptions: No Action atorvastatin [Lipitor] 10 mg tablet 10 mg PO QODAY RF: 0 lisinopril 10 mg tablet 40 mg PO DAILY RF: 0 amlodipine 5 mg tablet 5 mg PO DAILY RF: 0 apixaban 5 MG tablet 5 mg PO BID RF: 0 sertraline 25 mg tablet 25 mg PO DAILY RF: 0 cholecalciferol (vitamin D3) [Vitamin D3] 50 mcg (2,000 unit) Capsule 50 mcg PO DAILY RF: 0 Primary Care Provider: Paco Wilson Referrals: Paco Wilson MD [Primary Care Provider] - Disposition Disposition: Home, Self Care
[2021-06-29 12:34] LABS: Anion Gap 5 (5-15); BUN 9 mg/dL (7-18); BUN/Creat Ratio 10.1 RATIO (10-20); Calcium,Total 9.3 mg/dL (8.5-10.1); Chloride 106 mmol/L (98-107); Creatinine, Serum 0.89 mg/dL (0.55-1.02); EST Glomerular Filtration Rate 66 mL/min (>60); Est Glom Filt Rate - Afr Amer 80 mL/min (>60); Estimated Creatinine Clearance 53.68 ml/min; Glucose 101 mg/dL (74-106); Potassium 3.7 mmol/L (3.5-5.1); Sodium Level 139 mmol/L (136-145); Troponin-I HS < 3 pg/mL (3.0-54.0)
[2021-06-29 12:51] VITALS: BP 127/83; PULSE 83; RESP 17
[2021-06-29 13:30] VITALS: BP 119/81; PULSE 80; RESP 12
[2021-06-29 14:12] LABS: Troponin-I HS < 3 pg/mL (3.0-54.0)
[2021-06-29 14:47] VITALS: BP 135/85; PULSE 72; RESP 16; O2SAT 98
== END 2021-06-29 14:47 | disposition home or self-care (01) ==
PROVIDERS: Emergency Provider Student in an Organized Health Care Education/Training Program; PCP Family Medicine; Visit Provider Student in an Organized Health Care Education/Training Program
DX: R07.89 Other chest pain (principal); K20.90 Esophagitis, unspecified without bleeding; E78.5 Hyperlipidemia, unspecified; I10 Essential (primary) hypertension; E66.9 Obesity, unspecified; D64.9 Anemia, unspecified; Z86.718 Personal history of other venous thrombosis and embolism; Z79.899 Other long term (current) drug therapy
CPT/HCPCS: 71045; 80048; 84484; 85025; 93005; 99285; A4216

== ENCOUNTER → 2022-03-26 | Outpatient (CLI) | payer MEDICARE, SELFPAY ==
--- NOTE | 2022-03-26 12:31 | BI_ITS ---
MAMMOGRAPHY - BILATERAL SCREENING REASON FOR EXAM: Female, 72 years old. Routine annual screening examination. PERTINENT HISTORY: Father with breast cancer. Remote right excisional breast biopsy. TECHNIQUE: Digital bilateral breast uriel (3D mammographic acquisition) in the CC and MLO projections. 2-D mediolateral oblique (MLO) and craniocaudad (CC) views of both breasts were obtained. CAD: Full Field Digital Mammography with Computer Added Detection was performed. COMPARISON: Comparison is made with prior study dated 02/13/2021 and 06/02/2019. FINDINGS: Breast Composition: There are scattered areas of fibroglandular density. There are no dominant masses or suspicious calcifications. No other significant abnormalities are identified. There has been no significant change since the prior study. BI/SCRN MAMM (CAD)W/URIEL BILAT IMPRESSION: Stable bilateral screening mammogram. Yearly follow-up mammogram recommended. (A) ASSESSMENT CATEGORY: BIRADS Category 1: Negative. A letter regarding these results will be sent to the patient by the facility within 30 days. Approximately 10% of breast cancers are not detected by mammography. A normal mammogram should not delay biopsy of a clinically suspicious abnormality. [id number] Electronically Signed: Varghese Lion MD at 13:34 EST ,
== END | disposition home or self-care (01) ==
LOC: OPBI 12:30
PROVIDERS: PCP Family Medicine; Referring Provider Family Medicine; Visit Provider Family Medicine
DX: Z12.31 Encounter for screening mammogram for malignant neoplasm of breast (principal); Z80.3 Family history of malignant neoplasm of breast
CPT/HCPCS: 77063; 77067

== ENCOUNTER 2022-04-23 11:27 | Day surgery (SDC) | payer MEDICARE, SELFPAY ==
[2022-04-23] VITALS (10 sets, daily range): BP systolic 85–159; BP diastolic 54–94; PULSE 75–92; RESP 16–18; TEMP 36.6–37.4; O2SAT 93–100; BMI 41.4
[2022-04-23] MEDS: Lactated Ringers 1,000 ML 15 ML IV (12:24)
--- NOTE | 2022-04-23 12:43 | RAD_ITS ---
PROCEDURE: Spinal cord stimulator implant. DATE OF EXAMINATION: 04/23/2022 INDICATION: Female, 72 years old. Chronic back pain. FLUOROSCOPY TIME (if supplied): (3 minutes and 31 seconds) minutes/seconds. 10 images were submitted. RAD/Lumbar Spine 2 or 3 Views IMPRESSION: Intraoperative images are provided for spinal cord similar implant placement. The tip of the implant is at the T7-T8 level. Electronically Signed: Varghese Lion MD at 15:11 EST ,
[2022-04-23] MEDS: Cefazolin 2 GM in 0.9% Normal Saline 100 ML IV (12:46)
[2022-04-23] MEDS: Lidocaine 2% (20 ml mdv) 20 ML Vial (13:50)
[2022-04-23] MEDS: Bupivacaine 0.25% 30 ML Vial (13:53)
[2022-04-23] MEDS: Bacitracin 500 UNITS/GM PACKET (13:54)
--- NOTE | 2022-04-23 13:54 | PCM.OPRPT ---
Report of Operation Date of Procedure: 04/23/22 Description of Surgical Findings:: Pre-Operative Diagnosis:?Lumbosacral radiculopathy, lumbosacral degenerative disc disease, lumbosacral spinal stenosis, postlaminectomy syndrome of the lumbar spine Post-Operative Diagnosis:?Lumbosacral radiculopathy, lumbosacral degenerative disc disease, lumbosacral spinal stenosis, postlaminectomy syndrome of the lumbar spine Surgery/Procedure Performed::?1.? Spinal cord stimulator thoracolumbar leads placement x2 #2 spinal cord stimulator Medtronic intellis generator placement #3 spinal cord stimulator generator pocket creation at the right gluteal region #4 spinal cord stimulator simple programming, 5-intraoperative fluoroscopic interpretation Description of Surgical Findings:: MAC COMPLICATIONS: None BLOOD LOSS: Minimal Implanted device: Spinal cord stimulator lead [id number] lot number [id number], lead #2? [id number] lot number [id number] Medtronic spinal cord stimulator generator intellis serial number [id number] PROCEDURE IN DETAIL: History and physical today was reviewed. Risks and benefits of procedure explained. The patient understood, agreed to procedure, informed consent was obtained. IV inserted per routine protocol. The patient was taken to the operating room, placed in the prone position with a pillow positioned underneath the abdomen. A 2 g of Ancef IV piggyback was infused per anesthesia. The lower back and right gluteal area was prepped and draped in a sterile fashion using iodine x3 Ioban was placed.? The C-arm was brought in position for AP view at the L2-3 vertebral bodies under direct visualization fluoroscopy on a true AP view the L2-3 interlaminar space was identified skin and subcutaneous tissue and size approximately 10 cc of a mix of 2% lidocaine and 0.25% Marcaine using a 25-gauge regular needle followed by a 25-gauge 3-1/2 inch spinal needle towards the interlaminar space at L2-3, the skin and subcutaneous tissue were then anesthetized and using an 11-gauge blade was then taken down to the skin and subcutaneous tissue using a 14-gauge 5 inch Touhy needle provided by the [employer] kit the needle was passed through the skin towards the interlaminar space at L2-3 and a paramedian approach the needle was then advanced under direct visualization fluoroscopy towards the interlaminar space at L2-3 [id number] technique was then carried to air towards the interlaminar space at L2-3 once the tip of the needle was in the epidural space and loss of resistance was encountered to air and after confirmation of AP as well as oblique view of the spinal cord stimulator lead was then advanced under direct visualization fluoroscopy to be at the tip of the lead at T8 and the bottom of the lead around mid T10 after confirmation of AP as well as lateral view to confirm correct placement of the lead in the posterior compartment of the epidural space the previous procedure was then repeated to the above level at L1-2 to the left lumbar paramedian approach, ?the second lead was then inserted under direct visualization with fluoroscopy to be at the mid T8 and mid T10 area the leads were were then connected to the external neurostimulator and patient was then awakened to confirm satisfactory coverage of the painful area once satisfactory coverage was then achieved the stylette of each needle was then removed and the skin and subcutaneous tissue on to the left of the paramedian needles was then taken anesthetized with a total of 10 cc of the previous mixture of 0.25% Marcaine and 2% lidocaine using a 25-gauge regular needle the incision was then taken down through the skin and subcutaneous tissue towards the fascia making sure hemostasis was then maintained via cautery, the spinal cord stimulator leads were then passed through the above incision and secured using the buvlad ancher and sutured down with a 2-0 silk to the fascia at that level the spinal cord stimulator leads were then tunneled via a tunneler provided by the [employer] kit towards the previously incised spinal cord stimulator battery at the right gluteal region skin and subcutaneous tissue were anesthetized with approximately 10 cc of a mix of 2% lidocaine and 0.25% Marcaine using a 25 gauge regular needle, skin and subcutaneous tissue was then taken down with the 11-gauge blade hemostasis was maintained with Bovie and direct pressure the incision was then taken down to the fascia and the battery was then secured with the 2-0 silk sutures that were the spinal cord stimulator leads the upper lead was then marked the new until spinal cord stimulator battery was then provided Via [employer] kit the battery was then reattached of the spinal cord stimulator make ensure that the top lead is attached to the top position from 0-7 electrodes and the bottom from 8-15 electrodes once impedance was then checked to be in the proper average number the intellis battery was then inserted into the pocket and impedance with when checked again the pocket was then inspected to confirm hemostasis in place, the intellis battery was then secured to the fascia using a 2-0 silk to the upper eyes of the battery confirming an upward writing of the intellis facing posterior,? once complete confirmation the battery was then placed in the position and the the mid paramedian and the gluteal incisions were then closed primarily through 0 Vicryl in an interrupted fashion followed by a 3-0 Vicryl in a running fashion followed by a 4-0 Vicryl to the skin, hemostasis was then maintained during the procedure the skin was then covered with a Steri-Strips and bacitracin patient was then returned into the supine position in a stable condition and returned to recovery in a stable condition patient experienced no signs or symptoms of intrathecal or intravascular injection patient experienced no paresthesia the procedure was completed without any apparent difficulty any complication the patient appeared to tolerate well, motor as well as sensory function was unchanged from prior to the procedure ESTIMATED BLOOD LOSS: Minimal less than 25 mL ASSESSMENT AND PLAN: This is a 72-year-old female with lumbosacral radiculopathy lumbosacral degenerative disc disease lumbosacral spinal stenosis, postlaminectomy syndrome of the lumbar spine status post 1.? Spinal cord stimulator thoracolumbar leads placement x2 #2 spinal cord stimulator Medtronic intellis generator placement #3 spinal cord stimulator generator pocket creation at the right gluteal region #4 spinal cord stimulator simple programming, 5-intraoperative fluoroscopic interpretation patient will continue her current medications a prescription was provided to the patient? Augmentin 500 mg 1 p.o. every 8 hours for 7 days,?hydromorphone 4 mg 1 p.o. every 6 to 8 hours for acute postoperative pain number is 20, postop instruction were given in writing to the patient and her as well as verbally and in writing, patient will follow approximately 1 week for reevaluation. rn referral: Alysia Cee
== END 2022-04-23 16:42 | disposition home or self-care (01) ==
LOC: SDC 11:32 → AC 11:54
PROVIDERS: PCP Family Medicine; Referring Provider Anesthesiology Pain Medicine; Visit Provider Anesthesiology Pain Medicine
PROC: (CPT 63685; principal; 2022-04-23 12:45)
DX: M48.07 Spinal stenosis, lumbosacral region (principal); G89.18 Other acute postprocedural pain; M96.1 Postlaminectomy syndrome, not elsewhere classified; R05.3 Chronic cough; E78.5 Hyperlipidemia, unspecified; I10 Essential (primary) hypertension; Z86.718 Personal history of other venous thrombosis and embolism; G89.29 Other chronic pain; M54.9 Dorsalgia, unspecified
CPT/HCPCS: 64999; 64580; 01250; 72100; 76000; C1713; C1778; J7120; J2405

== ENCOUNTER → 2022-06-06 | Outpatient (CLI) | payer MEDICARE, SELFPAY ==
--- NOTE | 2022-06-06 14:46 | PFTCOMP ---
COMPLETE PULMONARY FUNCTION TEST INTERPRETATION Brief HPI: Patient is a 72-year-old female, currently under the care of myself, who presents to [facility] for complete pulmonary function tests secondary to diagnosis of chronic cough. Respiratory therapist reports good effort and reproducible results. Interpretation: Forced expiration spirometry shows a mild large airways obstructive ventilatory defect with an FEV1 of 121% predicted. There is a significant bronchodilator response in FEV1 by strict ATS criteria. Spirograms are of good quality and plateau normally. The respiratory flow volume loop shows a normal pattern. Lung volumes by body plethysmography show a normal total lung capacity at 5.04 L, 100% predicted. All other lung volumes are within normal limits. Diffusion capacity by carbon monoxide is normal at 95% predicted. The airway resistance is normal. No previous pulmonary function tests were available for review. Impression: Fully reversible mild large airways obstructive ventilatory defect and a pattern consistent with asthma
== END | disposition home or self-care (01) ==
LOC: PSN 09:27
PROVIDERS: PCP Family Medicine; Referring Provider Internal Medicine Critical Care Medicine; Visit Provider Internal Medicine Critical Care Medicine
DX: R05.3 Chronic cough (principal)
CPT/HCPCS: 94060; 94726; 94729

== ENCOUNTER → 2022-08-22 | Outpatient (CLI) | payer MEDICARE, SELFPAY ==
--- NOTE | 2022-08-22 08:53 | RAD_ITS ---
INDICATION: shortness of breath EXAMINATION/TECHNIQUE: X-RAY - XR Chest 2 Views COMPARISON: 06/29/2021 FINDINGS: LINES/DEVICES: None. LUNGS: No consolidation, edema or effusion. No pneumothorax. MEDIASTINUM AND CARDIOVASCULAR STRUCTURES: Cardiac silhouette not enlarged. Central airways and mediastinal contour are unremarkable. BONES AND SOFT TISSUES: No acute abnormality. Stimulator leads project over the lower thoracic spine. RAD/Chest PA and Lateral IMPRESSION: No radiographic evidence of acute cardiopulmonary disease. Electronically Signed: Morris Botello MD at 0:12 EDT ,
[2022-08-22 10:41] LABS: Anion Gap 7 (5-15); BUN 16 mg/dL (7-18); BUN/Creat Ratio 18.5 RATIO (10-20); Calcium,Total 8.9 mg/dL (8.5-10.1); Chloride 105 mmol/L (98-107); Creatinine, Serum 0.86 mg/dL (0.55-1.02); EST Glomerular Filtration Rate 69 mL/min (>60); Est Glom Filt Rate - Afr Amer 83 mL/min (>60); Glucose 104 mg/dL (74-106); Potassium 4.1 mmol/L (3.5-5.1); Sodium Level 139 mmol/L (136-145)
[2022-08-22 10:43] LABS: BNP,B-Type NATRIURETIC PEPTIDE 19.9 pg/mL (0-100)
== END | disposition home or self-care (01) ==
PROVIDERS: PCP Family Medicine; Referring Provider Nurse Practitioner Acute Care; Visit Provider Nurse Practitioner Acute Care
DX: R06.02 Shortness of breath (principal)
CPT/HCPCS: 36415; 71046; 80048; 83880

== ENCOUNTER → 2022-10-05 | Outpatient (CLI) | payer MEDICARE, SELFPAY ==
--- NOTE | 2022-10-05 09:20 | RAD_ITS ---
STUDY: X-RAY - THORACIC SPINE REASON FOR EXAM: Female, 72 years old. SPINAL CORD STIMULATOR POSITION S/P FALL TECHNIQUE: 3 view(s) of the thoracic spine were obtained. COMPARISON: None. FINDINGS: There is an increase in the normal thoracic kyphosis. There is no substantial scoliosis. There is demineralization of the thoracic spine with endplate spondylosis. There is multilevel disc space narrowing of the thoracic spine. The tip of the spinal cord stimulator is at the T8-T9 vertebral level. RAD/Thoracic Spine 3 Views IMPRESSION: The tip of the spinal cord stim later is at the T8-T9 disc space level Electronically Signed: Varghese Lion MD at 12:05 EDT ,
== END | disposition home or self-care (01) ==
LOC: RAD 09:16
PROVIDERS: PCP Family Medicine; Referring Provider Anesthesiology Pain Medicine; Visit Provider Anesthesiology Pain Medicine
DX: Z00.8 Encounter for other general examination (principal)
CPT/HCPCS: 72072

== ENCOUNTER 2022-10-17 17:30 | Outpatient (RCR) | payer MEDICARE, SELFPAY ==
--- NOTE | 2022-09-26 10:13 | HP.PTEVAL_ITS ---
Patient's Visit Information TIKA BAKER is a 72 year old F referred to Physical Therapy by Dr. Paco Wilson MD with a diagnosis of L shoulder pain. Date of Evaluation: 09/24/22 Physical Therapist: Jonathan Michele DPT - Visit Plan Frequency: 2x /Week Duration: 4 Weeks Plan: Start with US to anterior shoulder, AAROM, scapular strengthening. Add in biceps strengthening to assist with remodeling biceps tendon. - Subjective Pt. is here today for his initial evaluation with diagnosis of L shoulder pain. Pt. reports having pain for a few weeks now after doing some spring cleaning. She was cleaning her gordon with a mop like utensil. Pt did not feel a pop and felt well for that day, but then the next day was very sore and has been very sore ever since. She is having trouble sleeping now and is very difficulty with lifting objects over head. She has been avoiding use of her L arm for most activities. Pt. reports no N/T. Her pain is mostly at anterior shoulder. Pt. is hopeful to reduce symptoms in order be able to complete all ADLs and activities without limitations. - Pain L shoulder Pain Intensity (Out of 10): 0 Pain Intensity Range: 0, 6 - Objective POSTURE: pt. has decent posture in stance. Pt. has slight L fwrd shoulder. Pt. has normal posture with rest. PALPATION: Pt. is very tender at her anterior shoulder near supraspinatus and biceps tendon. No lateral subacromial pain noted. NEURO: normal throughout DTR, normal sensation. ROM: L shoulder: PROM: flexion 165deg increase NW, abd 150deg increase NW, ER at 90deg of abd ,90deg mild increase NW, IR at 25deg at 90deg of abd increase NW. AROM: flexion 140deg increase NW, abd 70deg increase NW, functional ER c1 increase NW, functional IR L3 NE. MMT: RUE 5/5 throughout. LUE: wrist 5/5 throughout; elbow 5/5 throughout; shoulder: flexion 4/5 increase NE, abd 4-/5 increase NW, ER 4+/5 mild increase NW, IR 5/5 NE. - Special Tests L Shoulder Empty Can - SS: Positive L Shoulder Belly Press - SupScap: Negative L Shoulder Neer - Impingement: Positive L Shoulder Wong William - Impingement: Positive L Shoulder Biceps Load Test - Labrum: Negative L Shoulder Speeds Test - Labrum/Biceps: Positive - Balance/Special Test Scores Quick DASH Score: 50.0000 - Goals Goal 1:: LTG: Pt to be I with HEP. Goal 2:: STG: Pt. to have increased tolerance to sleeping. Goal Time Frame: 2-4 Weeks Goal 3:: LTG: Pt. to have full L shoulder ROM without increase in symptoms. Goal Time Frame: 4-6 Weeks Goal 4:: LTG: Pt. to have full L shoulder strength without increase in symptoms allowing for increased ability to complete all daily activities. Goal Time Frame: 4-6 Weeks Goal 5:: LTG: pt. to complete all ADLs without increase in symptoms. Goal Time Frame: 4-6 Weeks - Rehabilitation Potential Physical Therapy Diagnosis: Pt. has signs and symptoms consistent with L shoulder pain. Her symptoms today suggested either supraspinatus pathology or long head of the biceps. I am leaning more towards a tendinosis rather than a tear due to her ability to move her shoulder and the strengthen involved. She would benefit from PT to work on her decreased ROM, increased pain and to increase her ability to complete all her daily activities. Rehabilitation Potential: Excellent - Anticipated Interventions Patient/Client Instruction: Educate patient on: Condition, Plan of Care, Risk Factors, Benefits of Fitness Program For the Purpose of:: To improve self management, To prevent re-injury, To improve ability to perform tasks related to life management, To improve tolerance to ADL's Therapeutic Exercise to Include: Strength training, Power training, Postural training, Flexibilty training, Passive ROM, Active ROM, Scapular Strength/Stabilization For the Purpose of:: To decrease pain, To increase ROM, To improve nutrient delivery to tissue, To increase oxygenation perfusion, To improve muscle performance and motor function, To improve health of tissue, To decrease soft tissue restriction Manual Therapy Techniques to Include: Passive ROM, Functional dry needling, Soft tissue mobilization For the Purpose of:: To decrease pain, To decrease swelling/inflammation, To increase ROM, To improve nutrient delivery to tissue, To increase oxygenation perfusion, To improve ability to perform ADL's Cryotherapy (ice pack, ice massage): Yes Thermo therapy (hot pack): Yes Ultrasound (thermal/non thermal): Yes For the Purpose of:: To decrease pain, To decrease swelling/inflammation, To increase ROM, To improve nutrient delivery to tissue Thank you for the opportunity to evaluate your patient. For Medicare and Medicare HMO plans, please review the plan of care and approve it. It will need to be FAXED BACK to us at [phone] for Medicare purposes. For Medicare only, by signing this I certify the plan of care. Please let me know if there are questions or concerns regarding this plan of care. Physician Signature: Date:____
--- NOTE | 2022-10-17 18:56 | HP.PTDCSUM ---
It has been my pleasure to treat ESTHER BAKER referred by Dr. Paco Wilson MD, with the diagnosis of L shoulder pain for a total of 4 visit(s). Discharge Date: 10/17/22 Please see the following information for a summary of their discharge status. Subjective: Pt. reports being overall well with her shoulder, but is now having increased low back pain. Pt. reports that she thinks that her shoulder symptoms have drastically resolved. L shoulder Pain Intensity (Out of 10): 1 % Improvement: 95 Objective/Function: ROM: Pt. has full ROM of her L shoulder with minimal pain at this point in time. MMT: Pt. has full symmetrical strength in BUEs. Pt. did have small AC joint soreness with abduction, but minimal and resolved with cessation of testing. At this point in time, Esther can do all of her activities with minimal issue and no pain. She is I with her HEP. Esther will be DC from PT at this point in time. Goal 1:: LTG: Pt to be I with HEP. Goal Progress: Goal Met Goal 2:: STG: Pt. to have increased tolerance to sleeping. Goal Progress: Goal Met Goal 3:: LTG: Pt. to have full L shoulder ROM without increase in symptoms. Goal Progress: Goal Met Goal 4:: LTG: Pt. to have full L shoulder strength without increase in symptoms allowing for increased ability to complete all daily activities. Goal Progress: Goal Met Goal 5:: LTG: pt. to complete all ADLs without increase in symptoms. Goal Progress: Goal Met Plan: Pt. to be DC from PT at this point in time. Discharge Comments: Esther was treated with US and with HEP for strengthening. She did very well. She is now having minimal pain and reports being 95% better overall. She has bands and exercises to complete at home as well. Pt. will be DC from PT at this point in time. If there are questions or concerns regarding this patient's physical therapy, please feel free to call me at [phone]. Thank you for the referral of this patient. Sincerely, Jonathan Lion Sipos, DPT Balance/Gait/Functional tests - Balance/Special Test Scores Quick DASH Score: 0
== END 2022-10-17 19:00 | disposition home or self-care (01) ==
LOC: PT 17:30
PROVIDERS: PCP Family Medicine; Referring Provider Family Medicine; Visit Provider Family Medicine
DX: M25.511 Pain in right shoulder (principal)
CPT/HCPCS: 97035; 97110; 97161; 97164

== ENCOUNTER → 2022-12-03 | Outpatient (CLI) | payer MEDICARE, SELFPAY ==
[2022-12-03 10:46] LABS: Anion Gap 4 (5-15); BUN 14 mg/dL (7-18); BUN/Creat Ratio 15.9 RATIO (10-20); Chloride 109 mmol/L (98-107); Cholesterol 172 mg/dL (200); Creatinine, Serum 0.88 mg/dL (0.55-1.02); EST Glomerular Filtration Rate 68 mL/min (>60); Est Glom Filt Rate - Afr Amer 82 mL/min (>60); Glucose 88 mg/dL (74-106); High Density Lipoprotein 64 mg/dL; Potassium 3.8 mmol/L (3.5-5.1); Sodium Level 140 mmol/L (136-145); Triglycerides 110 mg/dL; Very Low Density Lipoprotein 22 mg/dL (5-40)
== END | disposition home or self-care (01) ==
LOC: MTLAB 08:06
PROVIDERS: PCP Family Medicine; Referring Provider Family Medicine; Visit Provider Family Medicine
DX: Z00.00 Encounter for general adult medical examination without abnormal findings (principal)
CPT/HCPCS: 36415; 80048; 80061

== ENCOUNTER → 2022-12-18 | Outpatient (CLI) | payer MEDICARE, SELFPAY ==
--- NOTE | 2022-12-18 14:02 | BD_ITS ---
STUDY: DUAL ENERGY X-RAY ABSORPTIOMETRY / DXA REASON FOR EXAM: Female, 72 years old. V76.12ScreeningBONE DENSITY REASON FOR EXAM TECHNIQUE: Bone Mineral Density (BMD) measurements of left forearm and bilateral hips were obtained. COMPARISON: None. FINDINGS: Left Femur Total: g/cm2 (0.873) / T-score (-0.6) / Z-score (1.0) Left Femoral Neck: g/cm2 (0.727) / T-score (-1.1) / Z-score (0.7) Right Femur Total: g/cm2 (0.922) / T-score (-0.2) / Z-score (1.4) Right Femoral Neck: g/cm2 (0.737) / T-score (-1.0) / Z-score (0.8) Left Forearm: g/cm2 (0.618) / T-score (0.7) / Z-score (2.8) BD/Dexa Bone Density Study IMPRESSION: The patient is considered osteopenic as outlined below according to World Tae Organization (WHO) criteria with a low fracture risk. Reference Information: The T-score is the number of standard deviations above or below the standard which is normal for young adults at their peak bone mineral density. The World Health Organization (WHO) interprets the T-scores as follows: Above -1 Normal bone density Between -1 and -2.5 Osteopenia Equal to / or below -2.5 Osteoporosis As a practical clinical guideline, osteopenia may be graded as follows: Mild -1 through -1.5 Moderate -1.6 through -2.0 Severe -2.1 through -2.4 The Z-score is the number of standard deviations above or below age-matched controls. A Z-score of less than -1.5 would be considered abnormal. References: 1. NIH Osteoporosis and Related Bone Diseases www osteo.org 2. International Society for Clinical Densitometry www iscd.org 3. National Osteoporosis Foundation www nof.org Electronically Signed: Varghese Lion MD at 13:02 EDT ,
== END | disposition home or self-care (01) ==
LOC: OPBD 13:54
PROVIDERS: PCP Family Medicine; Referring Provider Family Medicine; Visit Provider Family Medicine
DX: Z00.00 Encounter for general adult medical examination without abnormal findings (principal); R06.02 Shortness of breath
CPT/HCPCS: 77080

== ENCOUNTER → 2022-12-19 | Outpatient (CLI) | payer MEDICARE, SELFPAY ==
--- NOTE | 2022-12-21 12:37 | STRESSREP_ITS ---
Stress Test Report Date: 12/19/2022 Procedure: Pharmacologic stress nuclear imaging study Indications: Dyspnea, palpitations Consent: Per the patient Procedure: The patient underwent pharmacologic (Regadenoson) evaluation with a peak heart rate of 126 beats per minute (84%predicted maximal heart rate) and a peak blood pressure of 124/82 mmHg. The baseline ECG demonstrated normal sinus rhythm. EKG during lexiscan infusion revealed no significant ischemic changes. EKG post infusion revealed no significant ischemic changes [There were no cardiac dysrhythmias pretest, during pharmacologic infusion, or recovery]. [There was no complaint of chest discomfort during pharmacologic infusion or recovery]. The examination was discontinued secondary to completion of protocol. Impression: 1. Lexiscan stress test test is negative for Lexiscan infusion induced EKG changes of ischemia. 2. Lexiscan stress test test is negative for Lexiscan infusion induced chest pain. 3. Results of the nuclear portion of the test is as below Myocardial perfusion imaging study: Technique: The patient was injected with 14.2 millicuries of technetium 99m Cardiolite and subsequently rest SPECT Cardiolite nuclear imaging was obtained in the horizontal long, vertical long, and short axis views. The patient underwent pharmacologic [Regadenoson 0.4mg] evaluation. Please see above for details. The patient was injected with 44.7 millicuries of technetium 99m Cardiolite and subsequently stress SPECT Cardiolite nuclear imaging was obtained in the hori zontal long, vertical long, and short axis views. A gated Cardiolite study at peak stress was obtained. Interpretation: Rest and stress SPECT Cardiolite nuclear imaging status post realignment, n ormalization, and attenuation correction demonstrate overall normal myocardial radioisotope uptake. Gated images reveal no significant regional wall motion abnormalities. The reported LVEF is greater than 70%. Impression: 1. There is no evidence of significant ischemia or infarction. 2. Estimated ejection fraction is greater than 70%. This note was generated with [employer] software. It may contain incorrect words, spelling, and punctuation that were not noted in checking the note before signing.
== END | disposition home or self-care (01) ==
LOC: CVS 06:44
PROVIDERS: PCP Family Medicine; Referring Provider Family Medicine; Visit Provider Family Medicine
DX: R06.02 Shortness of breath (principal)
CPT/HCPCS: 78452; 93017; A9500; A4216; J2785

== ENCOUNTER → 2023-02-07 | Outpatient (CLI) | payer MEDICARE, SELFPAY ==
--- NOTE | 2023-02-07 12:43 | RAD_ITS ---
INDICATION: ARTHRITIS EXAMINATION/TECHNIQUE: X-RAY - LEFT XR Hip Unilateral with Pelvis when performed; 2-3 Views COMPARISON: None. FINDINGS: Single frontal view of the pelvis. 2 views of the left hip. BONES: Lower lumbar orthopedic hardware without obvious hardware complication. Normal anatomic alignment without evidence of fracture or subluxation. No concerning bony lesion or abnormal sclerosis to suggest lesion. JOINTS: Lower lumbar degenerative change. SOFT TISSUES: Right flank neurostimulator device partially imaged.. RAD/HIP, UNI W/ Pelvis 2-3 Views IMPRESSION: No acute osseous abnormality of the pelvis or left hip. Electronically Signed: Edmar Ng MD at 4:21 EDT ,
== END | disposition home or self-care (01) ==
LOC: MTRAD 12:41
PROVIDERS: PCP Family Medicine; Visit Provider Nurse Practitioner Acute Care
DX: M13.852 Other specified arthritis, left hip (principal)
CPT/HCPCS: 73502

== ENCOUNTER → 2023-03-27 | Outpatient (CLI) | payer MEDICARE, SELFPAY ==
--- NOTE | 2023-03-27 14:40 | BI_ITS ---
MAMMOGRAPHY - BILATERAL SCREENING REASON FOR EXAM: Female, 73 years old. Routine annual screening examination. PERTINENT HISTORY: Father with breast cancer. Remote right excisional breast biopsy. TECHNIQUE: Digital bilateral breast uriel (3D mammographic acquisition) in the CC and MLO projections. 2-D mediolateral oblique (MLO) and craniocaudad (CC) views of both breasts were obtained. CAD: Full Field Digital Mammography with Computer Added Detection was performed. COMPARISON: Comparison is made with prior examination March 26, 2022 and February 13, 2021. FINDINGS: Breast Composition: There are scattered areas of fibroglandular density. There are no dominant masses or suspicious calcifications. No other significant abnormalities are identified. There has been no significant change since the prior study. BI/SCRN MAMM (CAD)W/URIEL BILAT IMPRESSION: Stable bilateral screening mammogram. Yearly follow-up mammogram recommended. (A) ASSESSMENT CATEGORY: BIRADS Category 1: Negative. A letter regarding these results will be sent to the patient by the facility within 30 days. Approximately 10% of breast cancers are not detected by mammography. A normal mammogram should not delay biopsy of a clinically suspicious abnormality. [id number] Electronically Signed: Varghese Lion MD at 15:37 EST ,
== END | disposition home or self-care (01) ==
LOC: OPBI 14:39
PROVIDERS: PCP Family Medicine; Referring Provider Family Medicine; Visit Provider Family Medicine
DX: Z12.31 Encounter for screening mammogram for malignant neoplasm of breast (principal); Z80.3 Family history of malignant neoplasm of breast
CPT/HCPCS: 77063; 77067

== ENCOUNTER 2023-10-04 10:53 | Outpatient (RCR) | payer MEDICARE, SELFPAY ==
--- NOTE | 2023-11-29 13:19 | HP.PT.NRP ---
Patient Information Patient Information: TIKA BAKER was seen in my office for initial evaluation on 10/04/23. The following Plan of Care was established for this patient: POC Established Initial Frequency: 2x /Week Initial Duration: 2 Months Anticipated Interventions Patient/Client Instruction: Educate patient on: Condition and Plan of Care For the Purpose of:: To decrease pain, To increase ROM, To improve nutrient delivery to tissue, To improve muscle performance and motor function, To improve ability to perform ADL's, To increase tolerance to activity/condition/position, To improve performance and independence with ADL's, To decrease level of supervision to perform tasks, To improve ability of physical actions for home/community/work/leisure, To improve gait and locomotor functions, To improve health of tissue and To increase flexibility/ROM Therapeutic Exercise to Include: Strength training, Endurance training, Flexibilty training, Gait and locomotor training, Neuromotor development, Passive ROM, Active ROM and Dynamic Lumbar Stabilization For the Purpose of:: To decrease pain, To increase ROM, To improve nutrient delivery to tissue, To improve muscle performance and motor function, To improve ability to perform ADL's, To increase tolerance to activity/condition/position, To improve performance and independence with ADL's, To decrease level of supervision to perform tasks, To improve ability of physical actions for home/community/work/leisure, To improve gait and locomotor functions, To improve health of tissue, To decrease soft tissue restriction and To increase flexibility/ROM Functional Training to Include: Gait training For the Purpose of:: To improve gait and locomotor functions and To improve safety with gait Manual Therapy Techniques to Include: Passive ROM For the Purpose of:: To increase ROM Last Seen Last Seen: This patient was last seen in our office 10/04/23. Pertinent comments regarding their Physical therapy will appear below: [facility] as pt did not schedule therapy after initial visit At this point I will be discontinuing this patient from physical therapy. I would be happy to see this patient again in the future if found appropriate by the physician. Thank you! Whitney Purvis, PAPITO Balance/Gait/Functional tests Balance/Special Test Scores Lower Extremity Functional Score: 34
== END 2023-10-04 19:00 | disposition home or self-care (01) ==
LOC: PT 10:53
PROVIDERS: PCP Family Medicine; Referring Provider Specialist; Visit Provider Specialist
DX: M16.12 Unilateral primary osteoarthritis, left hip (principal); M25.552 Pain in left hip
CPT/HCPCS: 97162

== ENCOUNTER → 2023-10-28 | Outpatient (CLI) | payer MEDICARE, SELFPAY ==
--- NOTE | 2023-10-28 11:18 | RAD_ITS ---
HISTORY: Cough. TECHNIQUE: XR Chest 2 Views. COMPARISON: 08/22/2022. FINDINGS: CARDIOMEDIASTINAL BORDERS: Cardiac silhouette within normal limits in size. Mediastinal contour unremarkable. LUNGS: Radiographically clear. PLEURA: No pleural effusion or pneumothorax seen. OSSEOUS STRUCTURES: Spinal osteophytes present. Thoracic spinal electrode again seen. RAD/Chest PA and Lateral IMPRESSION: No acute cardiopulmonary process identified. Electronically Signed: Viviane Carmen MD at 8:56 EDT ,
== END | disposition home or self-care (01) ==
LOC: MTRAD 11:18
PROVIDERS: PCP Family Medicine; Referring Provider Family Medicine; Visit Provider Family Medicine
DX: R05.9 Cough, unspecified (principal)
CPT/HCPCS: 71046

== ENCOUNTER → 2023-11-07 | Outpatient (CLI) | payer MEDICARE, SELFPAY ==
--- NOTE | 2023-11-07 11:04 | EKG12_ITS ---
Test Reason : PREOP Blood Pressure : / mmHG Vent. Rate : 115 BPM Atrial Rate : 115 BPM P-R Int : 176 ms QRS Dur : 074 ms QT Int : 300 ms P-R-T Axes : 035 -17 019 degrees QTc Int : 415 ms Sinus tachycardia Inferior infarct , age undetermined Abnormal ECG Confirmed by Deon Casey ([id number]), science editor NBA BOWIE ([id number]) on 11/11/2023 9:01:51 AM Referred By: Yaya Rod Confirmed By:Deon Casey
[2023-11-07 11:45] LABS: Absolute Lymphocyte Count 2.25 X10^3/uL (0.83-4.51); Absolute Neutrophil Count 5.8 X10^3/uL (2.0-7.7); Basophil# 0.04 X10^3/uL; Basophil% 0.4 % (0-1); Eosinophil# 0.14 X10^3/uL; Eosinophils% 1.6 % (0-5); Hematocrit 44.6 % (37-47); Hemoglobin 13.9 g/dL (12.0-15.0); Lymphocyte # 2.25 X10^3/ul (0.83-4.51); Lymphocyte % 25.3 % (19-41); Mean Corp Hgb Conc 31.2 g/dL (32-36); Mean Corpuscular Hgb 28.5 pg (27.0-32.0); Mean Corpuscular Volume 91.6 fL (81-99); Mean Platelet Vol. 10.7 fl (6.2-12.0); Monocyte# 0.63 X10^3/uL; Monocyte% 7.1 % (0-10); NRBC Flagged by Analyzer 0 % (0-5); Neutrophil # 5.83 X10^3/uL (2.7-7.7); Neutrophil % 65.4 % (47-70); Platelet Count 237 K/mm3 (150-450); RBC Distribution Width CV 12.9 % (11.6-14.6); RBC Distribution Width SD 43.7 fl (35.1-43.9); Red Blood Count 4.87 M/mm3 (4.2-5.4); White Blood Count 8.9 K/mm3 (4.4-11.0)
[2023-11-07 12:12] LABS: Albumin, Serum 3.5 g/dL (3.2-5.0); Anion Gap 0 (5-15); BUN 20 mg/dL (7-18); BUN/Creat Ratio 20.1 RATIO (10-20); Calcium,Total 9.5 mg/dL (8.5-10.1); Chloride 108 mmol/L (98-107); Creatinine, Serum 0.99 mg/dL (0.55-1.02); EST Glomerular Filtration Rate 58 mL/min (>60); Est Glom Filt Rate - Afr Amer 71 mL/min (>60); Glucose 114 mg/dL (74-106); Potassium 4.6 mmol/L (3.5-5.1); Sodium Level 138 mmol/L (136-145)
== END | disposition home or self-care (01) ==
PROVIDERS: PCP Family Medicine; Referring Provider Specialist; Visit Provider Specialist
DX: Z01.818 Encounter for other preprocedural examination (principal); M16.12 Unilateral primary osteoarthritis, left hip; Z01.810 Encounter for preprocedural cardiovascular examination
CPT/HCPCS: 36415; 80048; 82040; 85025; 87081; 93005

== ENCOUNTER → 2024-03-30 | Outpatient (CLI) | payer MEDICARE, SELFPAY ==
--- NOTE | 2024-03-30 15:11 | BI_ITS ---
MAMMOGRAPHY - BILATERAL SCREENING REASON FOR EXAM: Female, 74 years old. Routine annual screening examination. PERTINENT HISTORY: Father with breast cancer. Remote right excisional breast biopsy. TECHNIQUE: Digital bilateral breast uriel (3D mammographic acquisition) in the CC and MLO projections. 2-D mediolateral oblique (MLO) and craniocaudad (CC) views of both breasts were obtained. CAD: Full Field Digital Mammography with Computer Added Detection was performed. COMPARISON: Comparison is made with prior study March 27, 2023 and March 26, 2022. FINDINGS: Breast Composition: There are scattered areas of fibroglandular density. There are no dominant masses or suspicious calcifications. No other significant abnormalities are identified. There has been no significant change since the prior study. BI/SCRN MAMM (CAD)W/URIEL BILAT IMPRESSION: Stable bilateral screening mammogram. Yearly follow-up mammogram recommended. (A) ASSESSMENT CATEGORY: BIRADS Category 1: Negative. A letter regarding these results will be sent to the patient by the facility within 30 days. Approximately 10% of breast cancers are not detected by mammography. A normal mammogram should not delay biopsy of a clinically suspicious abnormality. [id number] Electronically Signed: Varghese Lion MD at 8:35 EST ,
== END | disposition home or self-care (01) ==
LOC: OPBI 15:09
PROVIDERS: PCP Family Medicine; Referring Provider Family Medicine; Visit Provider Family Medicine
DX: Z12.31 Encounter for screening mammogram for malignant neoplasm of breast (principal); Z80.3 Family history of malignant neoplasm of breast
CPT/HCPCS: 77063; 77067

== ENCOUNTER → 2024-06-15 | Outpatient (CLI) | payer MEDICARE, SELFPAY ==
[2024-06-15 11:07] LABS: AST(SGOT) 12 U/L (15-37); Alanine Aminotransfer ALT/SGPT 14 U/L (13-56); Albumin, Serum 3.5 g/dL (3.2-5.0); Alkaline Phosphatase 82 U/L (45-117); Anion Gap 5 (5-15); BUN 20 mg/dL (7-18); BUN/Creat Ratio 19.4 RATIO (10-20); Calcium,Total 9.4 mg/dL (8.5-10.1); Chloride 105 mmol/L (98-107); Cholesterol 185 mg/dL (200); Creatinine, Serum 1.03 mg/dL (0.55-1.02); EST Glomerular Filtration Rate 56 mL/min (>60); Est Glom Filt Rate - Afr Amer 68 mL/min (>60); Globulin 3.4 g/dL (2.2-4.2); Glucose 98 mg/dL (74-106); High Density Lipoprotein 70 mg/dL; Potassium 4.2 mmol/L (3.5-5.1); Protein, Total 6.9 g/dL (6.4-8.2); Sodium Level 138 mmol/L (136-145); Triglycerides 99 mg/dL; Very Low Density Lipoprotein 20 mg/dL (5-40)
== END | disposition home or self-care (01) ==
LOC: MTLAB 09:26
PROVIDERS: PCP Family Medicine; Referring Provider Family Medicine; Visit Provider Family Medicine
DX: E78.5 Hyperlipidemia, unspecified (principal)
CPT/HCPCS: 36415; 80053; 80061

== ENCOUNTER → 2024-11-23 | Outpatient (CLI) | payer MEDICARE, SELFPAY ==
[2024-11-23 18:26] LABS: Hematocrit 40.9 % (37-47); Hemoglobin 13.1 g/dL (12.0-15.0); Immature Granulocytes Count 0.040 X10^3/uL (0.0-0.0); Mean Corp Hgb Conc 32.0 g/dL (32-36); Mean Corpuscular Volume 91.1 fL (81-99); Mean Platelet Vol. 11.7 fl (6.2-12.0); NRBC Flagged by Analyzer 0 % (0-5); Platelet Count 254 K/mm3 (150-450); RBC Distribution Width CV 12.8 % (11.6-14.6); RBC Distribution Width SD 42.4 fl (35.1-43.9); Red Blood Count 4.49 M/mm3 (4.2-5.4); White Blood Count 9.1 K/mm3 (4.4-11.0)
[2024-11-23 19:11] LABS: AST(SGOT) 20 U/L (<=31); Alanine Aminotransfer ALT/SGPT 15 U/L (<=34); Albumin, Serum 4.0 g/dL (3.4-4.8); Alkaline Phosphatase 72 U/L (35-104); Anion Gap 14 (5-15); BUN 23 mg/dL (4-19); BUN/Creat Ratio 18.9 RATIO (10-20); Calcium,Total 9.4 mg/dL (7.6-11.0); Carbon Dioxide 23.3 mmol/L (21.0-32.0); Chloride 102 mmol/L (98-108); Globulin 3.0 g/dL (2.2-4.2); Glucose 109 mg/dL (70-99); Hepatitis B Surface Antigen Nonreactive (Nonreactive); Hepatitis C Antibody Nonreactive (Nonreactive); Potassium 4.1 mmol/L (3.3-5.1)
[2024-11-23 19:13] LABS: CRP < 3.00 mg/L (0.0-3.0)
[2024-11-25 11:09] LABS: ANTINUCLEAR ANTIBODIES DIRECT Negative (Negative)
== END | disposition home or self-care (01) ==
LOC: MTLAB 14:21
PROVIDERS: PCP Family Medicine; Referring Provider Internal Medicine Rheumatology; Visit Provider Internal Medicine Rheumatology
DX: M06.4 Inflammatory polyarthropathy (principal); M79.7 Fibromyalgia
CPT/HCPCS: 36415; 80053; 85025; 85652; 86038; 86140; 86200; 86431; 86706; 86803; 87340

== ENCOUNTER → 2024-12-30 | Outpatient (CLI) | payer MEDICARE, SELFPAY ==
--- NOTE | 2024-12-30 11:36 | MRI_ITS ---
PROCEDURE: UPPER EXT JOINT ONLY(ROUTINE) 12/30/2024 REASON FOR EXAM: LOCALIZED SWELLING, MASS AND LUMP TECHNIQUE: UPPER EXT JOINT ONLY(ROUTINE) Multiplanar and multisequence images were obtained without IV contrast administration. COMPARISON: COMPARISON: None FINDINGS: Tear of the central TFCC disc. Peripheral TFCC attachments are grossly intact. Volar and dorsal radioulnar ligaments are intact. Meniscal homolog is diminutive but within normal limits. Extensor carpi ulnaris tendon and tendon sheath are intact. Probable tear of the volar scapholunate ligament. Membranous and dorsal bands are intact. Lunotriquetral ligament is intact. Moderate focal tenosynovitis of the flexor carpi radialis over a 1.8 cm length at the level of the distal radius. Trace flexor pollicis longus tenosynovitis also noted. Remaining flexor tendons are intact. Extensor tendons are intact. Median nerve and ulnar nerve are within normal limits. Negative for fracture or suspicious marrow replacement. 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 [id number] scattered degenerative changes throughout the remainder of the carpus. Small radiocarpal, distal radioulnar and triscaphe joint effusions with mild synovitis. Volar ganglion along the distal radius measuring 9 x 10 x 9 mm. Dorsal ganglion along the triscaphe joint measuring 7 x 6 x 7 mm. Additional small ganglion along the volar aspect of the ulnar styloid measuring up to 12 mm. Remaining soft tissues are intact. MRI/Upper Ext Joint Only(Routine) IMPRESSION: 1. Several small ganglia about the wrist as detailed above. 2. Moderate to advanced degenerative changes throughout the carpus, greatest at the triscaphe joint. 3. Moderate short-segment tenosynovitis of the flexor carpi radialis. 4. Tear of the central TFCC disc. 5. Tear of the volar scapholunate ligament. Reading Location: [facility]
--- NOTE | 2024-12-30 13:25 | NEURO ---
NCS and/or EMG Patient Report Ordering Doctor: Yaya Rod DATE OF SERVICE: 12/30/24 Esther presents with complaints of tingling in the right hand. Electrodiagnostic findings: Right median motor nerve demonstrates prolonged latency with normal amplitude and conduction velocity. Right ulnar motor nerve demonstrates normal distal latency, amplitude and conduction velocity. Normal right median and right ulnar F?waves. Prolonged right median sensory latency at the wrist. Needle EMG testing was performed in the right upper limb. All muscles tested showed no evidence of denervation with normal motor unit action potentials. Electrodiagnostic impression: This is an abnormal study. 1. Electrodiagnostic findings suggestive of right-sided median mononeuropathy. This is consistent with a mild right carpal tunnel syndrome Multi Select Codes Neurology Neurology Interp Codes: 99613-16 Musc test done w/n test comp (interp) and 61595-82 Nrv cndj tst 5-6 studies (interp)
== END | disposition home or self-care (01) ==
LOC: OPMRI 11:26
PROVIDERS: PCP Family Medicine; Referring Provider Specialist; Visit Provider Specialist
DX: G56.01 Carpal tunnel syndrome, right upper limb (principal); R22.31 Localized swelling, mass and lump, right upper limb; M25.531 Pain in right wrist
CPT/HCPCS: 73221; 95886; 95909

== ENCOUNTER → 2025-01-06 | Outpatient (CLI) | payer MEDICARE, SELFPAY ==
[2025-01-06 17:54] LABS: Hematocrit 39.8 % (37-47); Hemoglobin 12.9 g/dL (12.0-15.0); Immature Granulocytes Count 0.030 X10^3/uL (0.0-0.0); Mean Corp Hgb Conc 32.4 g/dL (32-36); Mean Corpuscular Volume 89.4 fL (81-99); Mean Platelet Vol. 11.1 fl (6.2-12.0); NRBC Flagged by Analyzer 0 % (0-5); Platelet Count 227 K/mm3 (150-450); RBC Distribution Width CV 12.0 % (11.6-14.6); RBC Distribution Width SD 39.6 fl (35.1-43.9); Red Blood Count 4.45 M/mm3 (4.2-5.4); White Blood Count 7.5 K/mm3 (4.4-11.0)
[2025-01-06 18:22] LABS: AST(SGOT) 19 U/L (<=31); Alanine Aminotransfer ALT/SGPT 9 U/L (<=34); Albumin, Serum 4.3 g/dL (3.4-4.8); Alkaline Phosphatase 73 U/L (35-104); Anion Gap 12 (5-15); BUN 16 mg/dL (4-19); BUN/Creat Ratio 12.5 RATIO (10-20); Calcium,Total 9.8 mg/dL (7.6-11.0); Carbon Dioxide 23.7 mmol/L (21.0-32.0); Chloride 101 mmol/L (98-108); Globulin 2.8 g/dL (2.2-4.2); Glucose 94 mg/dL (70-99); Potassium 5.2 mmol/L (3.3-5.1)
== END | disposition home or self-care (01) ==
LOC: MTLAB 14:47
PROVIDERS: PCP Family Medicine; Referring Provider Internal Medicine Rheumatology; Visit Provider Internal Medicine Rheumatology
DX: M06.4 Inflammatory polyarthropathy (principal); M79.7 Fibromyalgia
CPT/HCPCS: 36415; 80053; 85025

== ENCOUNTER → 2025-03-17 | Outpatient (CLI) | payer MEDICARE, SELFPAY ==
[2025-03-17 14:18] LABS: Hematocrit 39.6 % (37-47); Hemoglobin 12.5 g/dL (12.0-15.0); Immature Granulocytes Count 0.020 X10^3/uL (0.0-0.0); Mean Corp Hgb Conc 31.6 g/dL (32-36); Mean Corpuscular Volume 89.0 fL (81-99); Mean Platelet Vol. 11.4 fl (6.2-12.0); NRBC Flagged by Analyzer 0 % (0-5); Platelet Count 243 K/mm3 (150-450); RBC Distribution Width CV 13.2 % (11.6-14.6); RBC Distribution Width SD 42.7 fl (35.1-43.9); Red Blood Count 4.45 M/mm3 (4.2-5.4); White Blood Count 7.3 K/mm3 (4.4-11.0)
[2025-03-17 14:43] LABS: Anion Gap 17 (5-15); BUN 21 mg/dL (4-19); BUN/Creat Ratio 17.0 RATIO (10-20); Calcium,Total 9.1 mg/dL (7.6-11.0); Carbon Dioxide 18.2 mmol/L (21.0-32.0); Chloride 106 mmol/L (98-108); Glucose 80 mg/dL (70-99); Potassium 3.8 mmol/L (3.3-5.1)
== END | disposition home or self-care (01) ==
LOC: MFPLAB 11:02
PROVIDERS: PCP Family Medicine; Visit Provider Family Medicine
DX: R42 Dizziness and giddiness (principal)
CPT/HCPCS: 36415; 80048; 85025

== ENCOUNTER → 2025-04-16 | Outpatient (CLI) | payer MEDICARE, SELFPAY ==
--- OUTSIDE RECORDS SUMMARY | 2025-04-16 14:40 | XMS RPT_ITS | CCD ---
Author Organization [facility] Care Team Providers Care Radiology Teacher Name Role Phone David CONTRERAS, Lizeth L Unavailable [phone] Steve, Dr. Antonio Primary Care Provider Steve, Dr. Antonio Referring Provider Jase, Dr. Medina Attending Provider Jase, Dr. Medina Referring Provider Jase, Dr. Medina Other Provider tSeve, Dr. Antonio Primary Care Provider Jase, Dr. Medina Attending Provider Jase, Dr. Medina Referring Provider Jase, Dr. Medina Other Provider Steve, Dr. Antonio Referring Provider Lucila CABLE WEAVER, ZACK-C Jigan Attending Provider [phone] Dr. Paco Wilson Primary Care Provider Dr. Paco Wilson Referring Provider Steve, Dr. Antonio Primary Care Provider Steve, Dr. Antonio Referring Provider Steve, Dr. Antonio Other Provider Dr. Cristobal Hall Attending Provider [phone] Steve CONTRERAS, Dr. Antonio Primary Care Provider [phone] Daniel CONTRERAS, Dr. Johnson Attending Provider Daniel CONTRERAS, Dr. Johnson Referring Provider Marcel CONTRERAS, Dr. Javier Attending Provider Marcel CONTRERAS, Dr. Javier Referring Provider Marcel CONTRERAS, Dr. Javier Other Provider [phone] Estrella CONTRERAS, Dr. Lan Attending Provider Wilson, Paco Primary Care Unavailable Wilson, Paco Attending Unavailable Wilson, Paco Referring Unavailable Vellanki, Elizabeth Attending Unavailable Vellanki, Elizabeth Referring Unavailable Wilson, Paco Primary Care Unavailable Marcel, Yaya Referring Unavailable Edyta De La Rosa Attending Unavailable Wilson, Paco Primary Care Unavailable Marcel, Yaya Consulting Unavailable Marcel, Yaya Attending Unavailable Marcel, Yaya Referring Unavailable Wilson, Paco Primary Care Unavailable Vellanki, Elizabeth Attending Unavailable Vellanki, Elizabeth Referring Unavailable Wilson, Paco Primary Care Unavailable Vellanki, Elizabeth Referring Unavailable Wilson, Paco Primary Care Unavailable Thanglanki, Elizabeth Attending Unavailable Marcel, Yaya Attending Unavailable Marcel, Yaya Referring Unavailable Wilson, Paco Primary Care Unavailable Wilson, Paco Attending Unavailable Wilson, Paco Primary Care Unavailable Allergies Allergy Classification Reported Allergen(s) Allergy Type Date of Onset Reaction(s) Facility (12 sources) Aspirin Drug Allergy 2 PASSED OUT [facility] (12 sources) Ciprofloxacin Drug Allergy 2 Itching [facility] (13 sources) Ciprofloxacin; Translations: [ciprofloxacin HCl] Drug Allergy 2 Itching [facility] (12 sources) cow milk allergenic extract Drug Allergy 2 STOMACH CRAMPS [facility] (13 sources) Enoxaparin; Translations: [enoxaparin sodium] Drug Allergy 2 Itching [facility] (12 sources) HYDROcodone Drug Allergy 2 Itching [facility] (13 sources) Pentazocine; Translations: [pentazocine HCl] Drug Allergy 2 PASSED OUT [facility] (13 sources) traMADol; Translations: [tramadol HCl] Drug Allergy 2 Itching [facility] (11 sources) Cephalexin Drug Allergy 2 Diarrhea [facility] (1 source) Aspirin Drug Allergy 4 [facility] Repository (1 source) Cephalexin Drug Allergy 4 [facility] (1 source) Ciprofloxacin Drug Allergy 4 [facility] (1 source) HYDROcodone Drug Allergy 4 [facility] (1 source) Milk Drug allergy (disorder) 4 [facility] Medications Current Medications Medication Drug Class(es) Dates Sig (Normalized) Sig (Original) albuterol 0.83 mg/ml inhalation solution (20 sources) beta2-Adrenergic Agonist Start: 08-22-2022 take 2.5 mg by inhalation every four hours as needed for wheezing Albuterol Sulfate 2.5 mg /3 mL (0.083 %) solution for nebulization Active 2.5 mg INHALATION Q4H as needed for Sob &/Or Wheezing 180 3 August 22, 2022 12:00am Asthma Moderate persistent asthma with (acute) exacerbation Start: 04-04-2022 End: 08-13-2022 Albuterol Sulfate 90 mcg/act uation HFA aerosol inhaler Discontinued 2 NMA INHALATION EVERY 6 HOURS as needed for ASTHMA 8.5 August 13, 2022 11:08am August 13, 2022 12:07pm Start: 04-04-2022 End: 08-13-2022 take 1 puff(s) by inhalation every six hours Albuterol Sulfate Discontinued 2 PUFF INHALATION EVERY 6 HOURS 8.5 August 13, 2022 11:08am August 13, 2022 12:07pm Start: 06-24-2017 End: 05-02-2020 Albuterol Sulfate 1 INHALER inhaler Discontinued 1 - 2 NMA INHALATION EVERY 4 HOURS NEEDED as needed for Sob &/Or Wheezing June 24, 2017 1:00am May 02, 2020 11:15am Start: 06-24-2017 End: 05-02-2020 take 1 puff(s) by inhalation every four hours as needed Albuterol Sulfate Discontinued 1 - 2 PUFF INHALATION EVERY 4 HOURS NEEDED June 24, 2017 1:00am May 02, 2020 11:15am amLODIPine 5 mg oral tablet (12 sources) Dihydropyridine Calcium Channel [place]asta Start: 05-02-2020 take 1 tablet by mouth once daily Amlodipine 5 mg tablet Active 5 mg PO DAILY May 02, 2020 1:00am atorvastatin 10 mg oral tablet (20 sources) HMG-CoA Reductase Inhibitor Start: 11-08-2015 End: 06-19-2017 take 1 tablet by mouth every other day Atorvastatin (Lipitor) 10 mg tablet Active 10 mg PO EVERY OTHER DAY June 19, 2017 1:00am benzonatate 200 mg oral capsule (9 sources) Non-narcotic Antitussive Start: 08-22-2022 take 1 capsule by mouth three times daily as needed for cough Benzonatate 200 mg capsule Active 200 mg PO THREE TIMES A DAY as needed for cough 90 0 August 22, 2022 12:00am Budesonide-Formote rol (20 sources) Corticosteroid, beta2-Adrenergic Agonist Start: 08-13-2022 Budesonide-Formot gillian (Symbicort) 160-4.5 mcg/actuation HFA aerosol inhaler Active 2 NMA INHALATION TWICE A DAY 10.2 August 13, 2022 12:07pm On Hold: Order Changed Start: 08-13-2022 take 1 puff(s) by in halation twice daily Budesonide-Formoterol (Symbicort) 160-4.5 mcg/actuation HFA aerosol inhaler Active 2 PUFF INHALATION TWICE A DAY 10.2 August 13, 2022 12:07pm Start: 08-13-2022 End: 08-13-2022 Budesonide-Formoterol (Symbi trevor) 160-4.5 mcg/actuation HFA aerosol inhaler Discontinued 2 NMA INHALATION TWICE A DAY 10.2 August 13, 2022 11:08am August 13, 2022 12:07pm Start: 08-13-2022 End: 08-13-2022 take 1 puff(s) by inhalation twice daily Budesonide-Formoterol (Symbicort) 160-4.5 mcg/actuation HFA aerosol inhaler Discontinued 2 PUFF INHALATION TWICE A DAY 10.2 August 13, 2022 11:08am August 13, 2022 12:07pm Start: 06-14-2022 End: 08-13-2022 Budesonide-Formoterol (Symbi trevor) 160-4.5 mcg/actuation HFA aerosol inhaler Discontinued 2 NMA INHALATION TWICE A DAY 10.2 3 June 14, 2022 1:00am August 13, 2022 11:09am Start: 06-14-2022 End: 08-13-2022 take 1 puff(s) by inhalation twice daily Budesonide-Formoterol (Symbicort) 160-4.5 mcg/actuation HFA aerosol inhaler Discontinued 2 PUFF INHALATION TWICE A DAY 10.2 June 14, 2022 1:00am August 13, 2022 11:09am Start: 06-14-2022 take 1 puff(s) by in halation twice daily Budesonide-Formoterol (Symbicort) 160-4.5 mcg/actuation HFA aerosol inhaler Active 2 PUFF INHALATION TWICE A DAY 10.2 June 14, 2022 12:00am cholecalciferol 0.05 mg oral capsule (12 sources) Vitamin D Start: 06-29-2021 take 1 capsule by mouth once daily Cholecalciferol (Vitamin D3) (Vitamin D3) 50 mcg (2,000 unit) Capsule Active 50 ug PO DAILY June 29, 2021 1:00am dabigatran etexilate 75 mg oral capsule (3 sources) Start: 02-07-2023 take 1 capsule by mouth twice daily Dabigatran Etexilate (Pradaxa) 75 mg capsule Active 75 mg PO TWICE A DAY February 07, 2023 12:00am doxycycline hyclate 100 mg oral capsule (3 sources) Tetracycline-clas s Drug Start: 10-19-2023 take 1 capsule by mouth twice daily Doxycycline Hyclate 100 mg capsule Active 100 mg PO TWICE A DAY 20 0 October 19, 2023 12:00am 60 actuat fluticasone propionate 0.113 mg/actuat / salmeterol xinafoate 0.014 mg/actuat dry powder inhaler (3 sources) Corticosteroid, beta2-Adrenergic Agonist Start: 02-07-2023 Fluticasone Propion-Salmeterol (Airduo Respiclick) 113-14 mcg/actuation aerosol powdr breath activated Active 1 NMA INHALATION Q12H 1 February 07, 2023 12:00am HYDROmorphone hydrochloride 4 mg oral tablet (11 sources) Opioid Agonist Start: 04-18-2022 Hydromorphone 4 mg tablet Active 4 mg PO NEEDED as needed for Pain April 18, 2022 1:00am lisinopril 10 mg oral tablet (20 sources) Angiotensin Converting Enzyme Inhibitor Start: 05-02-2020 take 4 tablets by mouth once daily Lisinopril 10 mg tablet Active 40 mg PO DAILY May 02, 2020 1:00am Start: 05-02-2020 take 40 mg by mouth once daily Lisinopril Active 40 MG PO DAILY May 02, 2020 1:00am Start: 11-08-2015 End: 05-02-2020 take 1 tablet by mouth once daily Lisinopril 10 mg tablet Discontinued 10 mg PO daily June 19, 2017 1:00am May 02, 2020 11:13am Nebulizer machine (9 sources) Start: 08-22-2022 Nebulizer mach ine Active 0 .ROUTE .MEDSUPPLY 1 August 22, 2022 12:00am Asthma Moderate persistent asthma with (acute) exacerbation As directed Start: 08-22-2022 Nebulizer mach ine Active 0 .ROUTE .MEDSUPPLY 1 August 22, 2022 12:00am As directed predniSONE 10 mg oral tablet (20 sources) Start: 10-19-2023 Prednisone 10 mg tablet Active 10 mg PO .COMPLEX 30 0 October 19, 2023 12:00am Take 4 pills for 3 days, 3 pills for 3 days, 2 pills for 3 days, take 1 pill for 3 days Start: 06-14-2022 End: 02-07-2023 Prednisone 10 mg tablet Disc ontinued 10 mg PO daily 30 August 13, 2022 12:07pm February 07, 2023 11:15am take 4 tabs for three days, then 3 tabs for three days, then 2 tabs for three days, then 1 tab for 3 days sertraline 25 mg oral tablet (12 sources) Serotonin Reuptake Inhibitor Start: 06-29-2021 take 1 tablet by mouth once daily Sertraline 25 mg tablet Active 25 mg PO DAILY June 29, 2021 1:00am Completed/Discontinued Medications Medication Drug Class(es) Dates Sig (Normalized) Sig (Original) amoxicillin 875 mg / clavulanate 125 mg oral tablet (18 sources) Penicillin-class Antibacterial Start: 08-13-2022 End: 02-07-2023 Amoxicillin-Pot Clavulanate 875-125 mg tablet Discontinued 1 {tbl} PO TWICE A DAY August 13, 2022 12:07pm February 07, 2023 11:14am Start: 08-13-2022 End: 08-13-2022 take 1 tablet by mouth twice daily Amoxicillin-Pot Clavulanate Active 1 TABLET PO TWICE A DAY August 13, 2022 12:07pm apixaban 5 mg oral tablet (12 sources) Factor Xa Inhibitor Start: 09-06-2018 End: 02-07-2023 take 1 tablet by mouth twice daily Apixaban 5 MG tablet Discontinued 5 mg PO TWICE A DAY September 06, 2018 12:00am February 07, 2023 11:21am cyclobenzaprine hydrochloride 10 mg oral tablet (12 sources) Muscle Relaxant Start: 09-06-2018 End: 05-02-2020 take 1 tablet by mouth at bedtime as needed for muscle spasms Cyclobenzaprine 10 MG tablet Discontinued 10 mg PO AT BEDTIME as needed for muscle spasms September 06, 2018 12:00am May 02, 2020 11:14am dicyclomine hydrochloride 10 mg oral capsule (12 sources) Anticholinergic Start: 11-08-2015 End: 06-19-2017 take 2 capsules by mouth once daily Dicyclomine 10 MG capsule Discontinued 20 mg PO DAILY November 08, 2015 12:00am June 19, 2017 9:31am pain Start: 11-08-2015 End: 06-19-2017 take 20 mg by mouth once daily Dicyclomine Discontinue d 20 MG PO DAILY November 08, 2015 12:00am June 19, 2017 9:31am gabapentin 300 mg oral capsule (12 sources) Anti-epileptic Agent Start: 09-06-2018 End: 05-02-2020 take 2 capsules by mouth twice daily Gabapentin 300 MG capsule Discontinued 600 mg PO TWICE A DAY September 06, 2018 12:00am May 02, 2020 11:14am Start: 09-06-2018 End: 05-02-2020 take 600 mg by mouth twice daily Gabapentin Discontinued 600 MG PO TWICE A DAY September 06, 2018 12:00am May 02, 2020 11:14am ketorolac tromethamine 10 mg oral tablet (12 sources) Nonsteroidal Anti-inflammatory Drug, Cyclooxygenase Inhibitor Start: 09-06-2018 End: 05-02-2020 take 1 tablet by mouth every six hours Ketorolac 10 MG tablet Discontinued 10 mg PO EVERY 6 HOURS 12 September 06, 2018 12:00am May 02, 2020 11:14am naproxen sodium 220 mg oral tablet (12 sources) Nonsteroidal Anti-inflammatory Drug Start: 11-08-2015 End: 12-01-2015 take 1 tablet by mouth every twelve hours as needed for pain Naproxen Sodium (Aleve) 220 MG tablet Discontinued 220 mg PO EVERY 12 HOURS NEEDED as needed for Pain November 08, 2015 12:00am December 01, 2015 7:57am Drug Treatment Unknown - unknown (1 source) No information available. tiZANidine 4 mg oral tablet (12 sources) Central alpha-2 Adrenergic Agonist Start: 09-06-2018 End: 05-02-2020 take 1 tablet by mouth three times daily Tizanidine 4 MG tablet Discontinued 4 mg PO THREE TIMES A DAY September 06, 2018 12:00am May 02, 2020 11:14am warfarin sodium 5 mg oral tablet (20 sources) Vitamin K Antagonist Start: 01-25-2016 End: 06-19-2017 Warfarin 5 MG tablet Discontinued 5 mg PO EVERY OTHER DAY 0 0 January 25, 2016 12:47pm June 19, 2017 9:31am start from tomorrow and then alternate with 6 mg. Start: 01-25-2016 End: 06-19-2017 take 1 tablet by mouth once Warfarin 7.5 MG tablet Dis continued 7.5 mg PO ONE TIME 1 0 January 25, 2016 12:00am June 19, 2017 9:32am at 5pm Start: 01-24-2016 End: 01-25-2016 take 4 mg by mouth every other day Warfarin (Jantoven) 5 MG tablet Discontinued 4 mg PO EVERY OTHER DAY January 24, 2016 2:59pm January 25, 2016 12:47pm Start: 01-24-2016 End: 06-19-2017 take 1 tablet by mouth every other day Warfarin 6 MG tablet Discontinued 6 mg PO EVERY OTHER DAY January 24, 2016 12:00am June 19, 2017 9:32am Start: 12-01-2015 End: 01-24-2016 take 4 mg by mouth once daily Warfarin (Jantoven) 5 MG tablet Discontinued 4 mg PO DAILY 0 0 December 01, 2015 9:06am January 24, 2016 2:59pm Start: 11-08-2015 End: 12-01-2015 take 1 tablet by mouth once daily Warfarin (Jantoven) 5 MG tablet Discontinued 5 mg PO DAILY November 08, 2015 12:00am December 01, 2015 9:06am Problems Problem Classification Problem Date Documented Da te Episodic/Chronic Asthma (12 sources) Asthma; Translations: [Unspecified asthma, uncomplicated] 06-14-2022 Chronic Comment on above: Confirmed by PFT (20 23) Conditions associated with dizziness or vertigo (1 source) Dizziness and giddiness; Translations: [Dizziness and giddiness] Onset: 03-30-2025 Episodic Disorders of lipid metabolism (13 sources) Hyperlipidemia; Translations: [Hyperlipidemia, unspecified] Onset: 07-03-2024 06-28-2017 Chronic Essential hypertension (12 sources) Hypertensive disorder; Translations: [Essential (primary) hypertension] 04-18-2022 Chronic Comment on above: CONTROLLED ON MED Other connective tissue disease (1 source) Fibromyalgia; Translations: [Fibromyalgia] Onset: 01-08-2025 Episodic Other lower respiratory disease (13 sources) Chronic cough; Translations: [Chronic cough] Episodic Other lower respiratory disease (9 sources) Dyspnea; Translations: [Dyspnea, unspecified] 08-21-2022 Episodic Other lower respiratory disease (4 sources) Shortness of breath; Translations: [Shortness of breath] 08-22-2022 Episodic Other nervous system disorders (2 sources) Carpal tunnel syndrome, right upper limb; Translations: [Carpal tunnel syndrome, right upper limb] Onset: 02-11-2025 Chronic Other non-traumatic joint disorders (1 source) Pain in right wrist; Translations: [Pain in right wrist] Onset: 02-11-2025 Episodic Other skin disorders (1 source) Localized swelling, mass and lump, right upper limb; Translations: [Localized swelling, mass and lump, right upper limb] Onset: 02-11-2025 Episodic Phlebitis; thrombophlebitis and thromboembolism (12 sources) History of recurrent deep vein thrombosis; Translations: [Personal history of other venous thrombosis and embolism] 06-28-2017 Episodic Pneumonia (except that caused by tuberculosis or sexually transmitted disease) (3 sources) Pneumonia; Translations: [Pneumonia, unspecified organism] 10-19-2023 Episodic Residual codes; unclassified (10 sources) Genetic disorder carrier; Translations: [Genetic carrier of other disease] 06-14-2022 Episodic Comment on above: M/F Residual codes; unclassified (2 sources) Genetic carrier of other disease; Translations: [Other genetic carrier status] 06-14-2022 Episodic Rheumatoid arthritis and related disease (2 sources) Inflammatory polyarthropathy; Translations: [Inflammatory polyarthropathy] Onset: 01-08-2025 Chronic Unclassified (1 source) No current problems or disability 06-28-2017 Results Test Name Value Interpretation Reference Range Facility Basic Metabolic Profile (BMP )on 03-17-2025 BUN/CRE 17.0 RATIO Normal 10-20 [facility] Comment on above: Performed By: #### L 500.2500, L100.0100 #### [facility] [address] [place], [address] Calcium [Mass/Vol] 9.1 mg/dL Normal 7.6-11.0 [facility] Comment on above: Performed By: #### L 500.2500, L100.0100 #### [facility] [address] [place], [address] Chloride [Moles/Vol] 106 mmol/L Normal 98-108 [facility] Comment on above: Performed By: #### L 500.2500, L100.0100 #### [facility] [address] [place], [address] CO2 [Moles/Vol] 18.2 mmol/L Low 21.0-32.0 [facility] Comment on above: Performed By: #### L 500.2500, L100.0100 #### [facility] [address] [place], [address] Creatinine [Mass/Vol] 1.25 mg/dL High 0.70-1.20 [facility] Comment on above: Performed By: #### L 500.2500, L100.0100 #### [facility] [address] [place], [address] GAP 17 High 5-15 [facility] Comment on above: Performed By: #### L 500.2500, L100.0100 #### [facility] [address] [place], [address] GFR/1.73 sq M.predicted among non-blacks MDRD (S/P/Bld) [Vol rate/Area] 46 mL/min/{1.73_m2} Low >60 [facility] Comment on above: Result Comment: mL/m in/1.73m2 CKD-EPI Creatinine Equation (2020) Performed By: #### L 500.2500, L100.0100 #### [facility] [address] [place], [address] Glucose [Mass/Vol] 80 mg/dL Normal 70-99 [facility] Comment on above: Performed By: #### L 500.2500, L100.0100 #### [facility] [address] [place], [address] Potassium [Moles/Vol] 3.8 mmol/L Normal 3.3-5.1 [facility] Comment on above: Performed By: #### L 500.2500, L100.0100 #### [facility] [address] [place], [address] Sodium [Moles/Vol] 141 mmol/L Normal 133-145 [facility] Comment on above: Performed By: #### L 500.2500, L100.0100 #### [facility] [address] [place], [address] Urea nitrogen [Mass/Vol] 21 mg/dL High 4-19 [facility] Comment on above: Performed By: #### L 500.2500, L100.0100 #### [facility] [address] [place], [address] CBC W/Diff, Automatedon 10-2 Absolute Lymph 2.08 X10 3/uL Normal 0.83-4.51 [facility] Comment on above: Performed By: #### L 500.2500, L100.0100 #### [facility] [address] [place], [address] Absolute Neut 4.5 X10 3/uL Normal 2.0-7.7 [facility] Comment on above: Performed By: #### L 500.2500, L100.0100 #### [facility] [address] [place], [address] Basophils/100 WBC (Bld) 0.8 % Normal 0-1 [facility] Comment on above: Performed By: #### L 500.2500, L100.0100 #### [facility] [address] [place], [address] Eosinophils/100 WBC (Bld) 1.7 % Normal 0-5 [facility] Comment on above: Performed By: #### L 500.2500, L100.0100 #### [facility] [address] [place], [address] Erythrocyte distribution width (RBC) [Ratio] 13.2 % Normal 11.6-14.6 [facility] Comment on above: Performed By: #### L 500.2500, L100.0100 #### [facility] [address] [place], [address] Hematocrit (Bld) [Volume fraction] 39.6 % Normal 37-47 [facility] Comment on above: Performed By: #### L 500.2500, L100.0100 #### [facility] [address] [place], [address] Hemoglobin (Bld) [Mass/Vol] 12.5 g/dL Normal 12.0-15.0 [facility] Comment on above: Performed By: #### L 500.2500, L100.0100 #### [facility] [address] [place], [address] IG% 0.300 Normal 0.0-0.9 [facility] Comment on above: Result Comment: IG% - Immature Granulocytes (promyelocytes, myelocytes and metamyelocytes) > 1% indicates that a LEFT SHIFT is Present. Performed By: #### L 500.2500, L100.0100 #### [facility] [address] [place], [address] Lymphocytes/100 WBC (Bld) 28.6 % Normal 19-41 [facility] Comment on above: Performed By: #### L 500.2500, L100.0100 #### [facility] [address] [place], [address] MCH (RBC) [Entitic mass] 28.1 pg Normal 27.0-32.0 [facility] Comment on above: Performed By: #### L 500.2500, L100.0100 #### [facility] [address] [place], [address] MCHC (RBC) [Mass/Vol] 31.6 g/dL Low 32-36 [facility] Comment on above: Performed By: #### L 500.2500, L100.0100 #### [facility] [address] [place], [address] MCV (RBC) [Entitic vol] 89.0 fL Normal 81-99 [facility] Comment on above: Performed By: #### L 500.2500, L100.0100 #### [facility] [address] [place], [address] Monocytes/100 WBC (Bld) 7.0 % Normal 0-10 [facility] Comment on above: Performed By: #### L 500.2500, L100.0100 #### [facility] [address] [place], [address] Neutrophils/100 WBC (Bld) 61.6 % Normal 47-70 [facility] Comment on above: Performed By: #### L 500.2500, L100.0100 #### [facility] [address] [place], [address] Nucleated RBC (Bld) [#/Vol] 0 10*3/uL Normal 0-5 [facility] Comment on above: Performed By: #### L 500.2500, L100.0100 #### [facility] [address] [place], [address] Platelet mean volume (Bld) [Entitic vol] 11.4 fL Normal 6.2-12.0 [facility] Comment on above: Performed By: #### L 500.2500, L100.0100 #### [facility] [address] [place], [address] Platelets (Bld) [#/Vol] 243 10*3/uL Normal 150-450 [facility] Comment on above: Performed By: #### L 500.2500, L100.0100 #### [facility] [address] [place], [address] RBC (Bld) [#/Vol] 4.45 10*6/uL Normal 4.2-5.4 [facility] Comment on above: Performed By: #### L 500.2500, L100.0100 #### [facility] [address] [place], [address] RDW SD 42.7 fl Normal 35.1-43.9 [facility] Comment on above: Performed By: #### L 500.2500, L100.0100 #### [facility] [address] [place], [address] WBC (Bld) [#/Vol] 7.3 10*3/uL Normal 4.4-11.0 [facility] Comment on above: Performed By: #### L 500.2500, L100.0100 #### [facility] [address] [place], [address] Absolute lymphocyte countOrd ered By: Elizabeth Sanchez on 01-06-2025 Lymphocytes Auto (Unsp spec) [#/Vol] 2.30 10*3/uL 0.83-4.51 [facility] Absolute neutrophil countOrd ered By: Elizabeth Sanchez on 01-06-2025 Neutrophils (Bld) [#/Vol] 4.4 10*3/uL 2.0-7.7 [facility] Anion gap in Serum or Plasma Ordered By: Elizabeth Sanchez on 01-06-2025 Anion gap [Moles/Vol] 12 mmol/L 10-01 [facility] Automated lymphocyte count a s percentage of total leukocytesOrdered By: Elizabeth Sanchez on 01-06-2025 Lymphocytes/100 WBC Auto (Unsp spec) 30.9 % [facility] BUN/creatinine ratioOrdered By: Elizabeth Sanchez on 01-06-2025 Urea nitrogen/Creatinine [Mass ratio] 12.5 mg/mg 03-08 [facility] Basophil percentageOrdered B y: Elizabeth Sanchez on 01-06-2025 Basophils/100 WBC (Bld) 0.9 % 0-1 [facility] Bilirubin, totalOrdered By: Elizabeth Sanchez on 01-06-2025 Bilirubin [Mass/Vol] 0.34 mg/dL 0.00-1.30 [facility] CBC W/Diff, Automatedon 12-19 Absolute Lymph 2.30 X10 3/uL Normal 0.83-4.51 [facility] Comment on above: Performed By: #### L 500.2500, L100.0100 #### [facility] Laboratory [address] [place], [address] Absolute Neut 4.4 X10 3/uL Normal 2.0-7.7 [facility] Comment on above: Performed By: #### L 500.2500, L100.0100 #### [facility] [address] [place], [address] Basophils/100 WBC (Bld) 0.9 % Normal 0-1 [facility] Comment on above: Performed By: #### L 500.2500, L100.0100 #### [facility] [address] [place], [address] Eosinophils/100 WBC (Bld) 1.2 % Normal 0-5 [facility] Comment on above: Performed By: #### L 500.2500, L100.0100 #### [facility] [address] [place], [address] Erythrocyte distribution width (RBC) [Ratio] 12.0 % Normal 11.6-14.6 [facility] Comment on above: Performed By: #### L 500.2500, L100.0100 #### [facility] [address] [place], [address] Hematocrit (Bld) [Volume fraction] 39.8 % Normal 37-47 [facility] Comment on above: Performed By: #### L 500.2500, L100.0100 #### [facility] [address] [place], [address] Hemoglobin (Bld) [Mass/Vol] 12.9 g/dL Normal 12.0-15.0 [facility] Comment on above: Performed By: #### L 500.2500, L100.0100 #### [facility] [address] [place], [address] IG% 0.400 Normal 0.0-0.9 [facility] Comment on above: Result Comment: IG% - Immature Granulocytes (promyelocytes, myelocytes and metamyelocytes) > 1% indicates that a LEFT SHIFT is Present. Performed By: #### L 500.2500, L100.0100 #### [facility] [address] [place], [address] Lymphocytes/100 WBC (Bld) 30.9 % Normal 19-41 [facility] Comment on above: Performed By: #### L 500.2500, L100.0100 #### [facility] [address] [place], [address] MCH (RBC) [Entitic mass] 29.0 pg Normal 27.0-32.0 [facility] Comment on above: Performed By: #### L 500.2500, L100.0100 #### [facility] [address] [place], [address] MCHC (RBC) [Mass/Vol] 32.4 g/dL Normal 32-36 [facility] Comment on above: Performed By: #### L 500.2500, L100.0100 #### [facility] [address] [place], [address] MCV (RBC) [Entitic vol] 89.4 fL Normal 81-99 [facility] Comment on above: Performed By: #### L 500.2500, L100.0100 #### [facility] [address] [place], [address] Monocytes/100 WBC (Bld) 7.2 % Normal 0-10 [facility] Comment on above: Performed By: #### L 500.2500, L100.0100 #### [facility] [address] [place], [address] Neutrophils/100 WBC (Bld) 59.4 % Normal 47-70 [facility] Comment on above: Performed By: #### L 500.2500, L100.0100 #### [facility] [address] [place], [address] Nucleated RBC (Bld) [#/Vol] 0 10*3/uL Normal 0-5 [facility] Comment on above: Performed By: #### L 500.2500, L100.0100 #### [facility] [address] [place], [address] Platelet mean volume (Bld) [Entitic vol] 11.1 fL Normal 6.2-12.0 [facility] Comment on above: Performed By: #### L 500.2500, L100.0100 #### [facility] [address] [place], [address] Platelets (Bld) [#/Vol] 227 10*3/uL Normal 150-450 [facility] Comment on above: Performed By: #### L 500.2500, L100.0100 #### [facility] [address] [place], [address] RBC (Bld) [#/Vol] 4.45 10*6/uL Normal 4.2-5.4 [facility] Comment on above: Performed By: #### L 500.2500, L100.0100 #### [facility] [address] [place], [address] RDW SD 39.6 fl Normal 35.1-43.9 [facility] Comment on above: Performed By: #### L 500.2500, L100.0100 #### [facility] [address] [place], [address] WBC (Bld) [#/Vol] 7.5 10*3/uL Normal 4.4-11.0 [facility] Comment on above: Performed By: #### L 500.2500, L100.0100 #### [facility] [address] [place], [address] Carbon dioxide, total [Moles /volume] in Central venous bloodOrdered By: Elizabeth Sanchez on 01-06-2025 CO2 [Moles/Vol] 23.7 mmol/L 21.0-32.0 [facility] Chloride assayOrdered By: Oh Sanchez on 01-06-2025 Chloride [Moles/Vol] 101 mmol/L 98-108 [facility] Comprehensive Metabolic Prof ilon 01-06-2025 Albumin [Mass/Vol] 4.3 g/dL Normal 3.4-4.8 [facility] Comment on above: Performed By: #### L 500.2500, L100.0100 #### [facility] [address] [place], [address] Albumin/Globulin [Mass ratio] 1.5 {ratio} Normal 0.9-2.4 [facility] Comment on above: Performed By: #### L 500.2500, L100.0100 #### [facility] [address] [place], [address] ALK PHOS 73 U/L Normal 35-104 [facility] Comment on above: Performed By: #### L 500.2500, L100.0100 #### [facility] [address] [place], [address] ALT [Catalytic activity/Vol] 9 U/L Normal <=34 [facility] Comment on above: Performed By: #### L 500.2500, L100.0100 #### [facility] [address] [place], [address] AST [Catalytic activity/Vol] 19 U/L Normal <=31 [facility] Comment on above: Performed By: #### L 500.2500, L100.0100 #### [facility] [address] [place], [address] Bilirubin [Mass/Vol] 0.34 mg/dL Normal 0.00-1.30 [facility] Comment on above: Performed By: #### L 500.2500, L100.0100 #### [facility] [address] [place], [address] BUN/CRE 12.5 RATIO Normal 10-20 [facility] Comment on above: Performed By: #### L 500.2500, L100.0100 #### [facility] [address] [place], [address] Calcium [Mass/Vol] 9.8 mg/dL Normal 7.6-11.0 [facility] Comment on above: Performed By: #### L 500.2500, L100.0100 #### [facility] [address] [place], [address] Chloride [Moles/Vol] 101 mmol/L Normal 98-108 [facility] Comment on above: Performed By: #### L 500.2500, L100.0100 #### [facility] [address] [place], [address] CO2 [Moles/Vol] 23.7 mmol/L Normal 21.0-32.0 [facility] Comment on above: Performed By: #### L 500.2500, L100.0100 #### [facility] [address] [place], [address] Creatinine [Mass/Vol] 1.26 mg/dL High 0.70-1.20 [facility] Comment on above: Performed By: #### L 500.2500, L100.0100 #### [facility] [address] [place], [address] GAP 12 Normal 5-15 [facility] Comment on above: Performed By: #### L 500.2500, L100.0100 #### [facility] [address] [place], [address] GFR/1.73 sq M.predicted among non-blacks MDRD (S/P/Bld) [Vol rate/Area] 45 mL/min/{1.73_m2} Low >60 [facility] Comment on above: Result Comment: mL/m in/1.73m2 CKD-EPI Creatinine Equation (2020) Performed By: #### L 500.2500, L100.0100 #### [facility] [address] [place], [address] Globulin (S) [Mass/Vol] 2.8 g/dL Normal 2.2-4.2 [facility] Comment on above: Performed By: #### L 500.2500, L100.0100 #### [facility] [address] [place], [address] Glucose [Mass/Vol] 94 mg/dL Normal 70-99 [facility] Comment on above: Performed By: #### L 500.2500, L100.0100 #### [facility] [address] [place], [address] Potassium [Moles/Vol] 5.2 mmol/L High 3.3-5.1 [facility] Comment on above: Performed By: #### L 500.2500, L100.0100 #### [facility] [address] [place], [address] Sodium [Moles/Vol] 137 mmol/L Normal 133-145 [facility] Comment on above: Performed By: #### L 500.2500, L100.0100 #### [facility] [address] [place], [address] T PROT 7.1 g/dL Normal 5.9-8.4 [facility] Comment on above: Performed By: #### L 500.2500, L100.0100 #### [facility] [address] [place], [address] Urea nitrogen [Mass/Vol] 16 mg/dL Normal 4-19 [facility] Comment on above: Performed By: #### L 500.2500, L100.0100 #### [facility] [address] [place], [address] Eosinophil percentageOrdered By: Elizabeth Sanchez on 01-06-2025 Eosinophils/100 WBC (Bld) 1.2 % 0-5 [facility] Erythrocyte distribution wid th ratioOrdered By: Elizabeth Sanchez on 01-06-2025 Erythrocyte distribution width (RBC) [Ratio] 12.0 % 11.6-14.6 [facility] Erythrocyte distribution wid th standard deviationOrdered By: Elizabeth Sanchez on 01-06-2025 Erythrocyte distribution width (RBC) [Ratio] 39.6 fl 35.1-43.9 [facility] Glomerular filtration rate ( GFR) estimation/1.73 sq m using serum, plasma, or whole bOrdered By: Elizabeth Sanchez on 01-06-2025 GFR/1.73 sq M.predicted among non-blacks MDRD (S/P/Bld) [Vol rate/Area] 45 mL/min/{1.73_m2} Low >60 [facility] Comment on above: mL/min/1.73m2 CKD-EP I Creatinine Equation (2020) Hematocrit Auto (Bld) [Volum e fraction]Ordered By: Elizabeth Sanchez on 01-06-2025 Hematocrit (Bld) [Volume fraction] 39.8 % 37-47 [facility] Hemoglobin measurementOrdere d By: Elizabeth Sanchez on 01-06-2025 Hemoglobin (Bld) [Mass/Vol] 12.9 g/dL 12.0-15.0 [facility] Immature granulocytes/100 WB C Auto (Bld)Ordered By: Elizabeth Sanchez on 01-06-2025 Immature granulocytes/100 WBC (Bld) 0.400 % 0.0-0.9 [facility] Comment on above: IG% - Immature Granu locytes (promyelocytes, myelocytes and metamyelocytes) > 1% indicates that a LEFT SHIFT is Present. Laboratory - Chemistry and C hemistry - challengeOrdered By: Elizabeth Sanchez on 01-06-2025 AST [Catalytic activity/Vol] 19 U/L <32 [facility] MCV (mean corpuscular volume ) determinationOrdered By: Elizabeth Sanchez on 01-06-2025 MCV (RBC) [Entitic vol] 89.4 fL 81-99 [facility] Mean corpuscular hemoglobin (MCH) determinationOrdered By: Elizabeth Sanchez on 01-06-2025 MCH (RBC) [Entitic mass] 29.0 pg 27.0-32.0 [facility] Mean corpuscular hemoglobin concentration (MCHC) determinationOrdered By: Elizabeth Sanchez on 01-06-2025 MCHC (RBC) [Mass/Vol] 32.4 g/dL 32-36 [facility] Mean platelet volume determi nationOrdered By: Elizabeth Sanchez on 01-06-2025 Platelet mean volume (Bld) [Entitic vol] 11.1 fL 6.2-12.0 [facility] Monocyte percentageOrdered B y: Elizabeth Sanchez on 01-06-2025 Monocytes/100 WBC (Bld) 7.2 % 0-10 [facility] Neutrophil percentageOrdered By: Elizabeth Sanchez on 01-06-2025 Neutrophils/100 WBC (Bld) 59.4 % 47-70 [facility] Nucleated red blood cell per centageOrdered By: Elizabeth Sanchez on 01-06-2025 Nucleated RBC/100 WBC (Bld) [Ratio] 0 % 0-5 [facility] Platelet countOrdered By: Oh Sanchez on 01-06-2025 Platelets (Bld) [#/Vol] 227 10*3/uL 150-450 [facility] Potassium measurement (mass/ volume)Ordered By: Elizabeth Sanchez on 01-06-2025 Potassium (Unsp spec) [Mass/Vol] 5.2 mmol/L High 3.3-5.1 [facility] RBC Auto (Bld) [#/Vol]Ordere d By: Elizabeth Sanchez on 01-06-2025 RBC (Bld) [#/Vol] 4.45 10*6/uL 4.2-5.4 [facility] Serum creatinine measurement (mass/volume)Ordered By: Elizabeth Sanchez on 01-06-2025 Creatinine [Mass/Vol] 1.26 mg/dL High 0.70-1.20 [facility] Serum globulin measurementOr dered By: Elizabeth Sanchez on 01-06-2025 Globulin (S) [Mass/Vol] 2.8 g/dL 2.2-4.2 [facility] Serum glucose measurement (m ass/volume)Ordered By: Elizabeth Sanchez on 01-06-2025 Glucose [Mass/Vol] 94 mg/dL 70-99 [facility] Serum or plasma alanine ta otransferase (ALT) measurementOrdered By: Elizabeth Sanchez on 01-06-2025 ALT [Catalytic activity/Vol] 9 U/L <35 [facility] Serum or plasma albumin rebeca urement (mass/volume)Ordered By: Elizabeth Sanchez on 01-06-2025 Albumin [Mass/Vol] 4.3 g/dL 3.4-4.8 [facility] Serum or plasma albumin/glob ulin mass ratioOrdered By: Eilzabeth Sanchez on 01-06-2025 Albumin/Globulin [Mass ratio] 1.5 {ratio} 0.9-2.4 [facility] Serum or plasma alkaline cornell sphatase measurementOrdered By: Elizabeth Sanchez on 01-06-2025 ALP [Catalytic activity/Vol] 73 U/L 35-104 [facility] Serum or plasma calcium rebeca urement (mass/volume)Ordered By: Elizabeth Sanchez on 01-06-2025 Calcium [Mass/Vol] 9.8 mg/dL 7.6-11.0 [facility] Serum or plasma urea nitroge n measurement (mass/volume)Ordered By: Elizabeth Sanchez on 01-06-2025 Urea nitrogen [Mass/Vol] 16 mg/dL 4-19 [facility] Sodium levelOrdered By: Akanksha Sanchez on 01-06-2025 Sodium [Moles/Vol] 137 mmol/L 133-145 [facility] Total proteinOrdered By: Mary Sanchez on 01-06-2025 Protein [Mass/Vol] 7.1 g/dL 5.9-8.4 [facility] White blood cell (WBC) count Ordered By: Elizabeth Sanchez on 01-06-2025 WBC (Bld) [#/Vol] 7.5 10*3/uL 4.4-11.0 [facility] Magnetic resonance imaging r eportOrdered By: Chan Sears on 01-02-2025 Study report [facility] Imaging Services [address] [place] [address] Upper Ext Joint Only(Routine) MR#: [id number] Acct: [id number] Name: TIKA BAKER Rep #: [id number] : 1950 F 74 From: Darryl Sears DO PCP: Dr. Paco Wilson MD Status: REG C Study:Upper Ext Joint Only(Routine) Date of Exam: 12/30/24 Exam# [id number] Ordering Dr: Otilio Rod MD PROCEDURE: UPPER EXT JOINT ONLY(ROUTINE) 12/30/2024 REASON FOR EXAM: LOCALIZED SWELLING, MASS AND LUMP TECHNIQUE: UPPER EXT JOINT ONLY(ROUTINE) Multiplanar and multisequence images were obtained without IV contrast administration. COMPARISON: COMPARISON: None FINDINGS: Tear of the central TFCC disc. Peripheral TFCC attachments are grossly intact. Volar and dorsal radioulnar ligaments are intact. Meniscal homolog is diminutive but within normal limits. Extensor carpi ulnaris tendon and tendon sheath are intact. Probable tear of the volar scapholunate ligament. Membranous and dorsal bands are intact. Lunotriquetral ligament is intact. Moderate focal tenosynovitis of the flexor carpi radialis over a 1.8 cm length at the level of the distal radius. Trace flexor pollicis longus tenosynovitis also noted. Remaining flexor tendons are intact. Extensor tendons are intact. Median nerve and ulnar nerve are within normal limits. Negative for fracture or suspicious marrow replacement. 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 [id number] scattered degenerative changes throughout the remainder of the carpus. Small radiocarpal, distal radioulnar and triscaphe joint effusions with mild synovitis. Volar ganglion along the distal radius measuring 9 x 10 x 9 mm. Dorsal ganglionalong the triscaphe joint measuring 7 x 6 x 7 mm. Additional small ganglion along the volar aspect of the ulnar styloid measuring up to 12 mm. Remaining soft tissues are intact. MRI/Upper Ext Joint Only(Routine) IMPRESSION: 1. Several small ganglia about the wrist as detailed above. 2. Moderate to advanced degenerative changes throughout the carpus, greatest at the triscaphe joint. 3. Moderate short-segment tenosynovitis of the flexor carpi radialis. 4. Tear of the central TFCC disc. 5. Tear of the volar scapholunate ligament. Reading Location: [facility] CC: Dr. Paco Wilson MD; Dr. Yaya Rod MD ~ Tumbler Machine Operator: Signed [facility] NCS and/or EMG Patienton 08- 13-2025 NCS and/or EMG Patient [facility] Pulmonary Services/Neurology [address] [place] [address] MR#: [id number] Acct: [id number] Name: TIKA BAKER Rep #: [id number] : 1950 74 From: Edyta De La Rosa MD Referring Dr: Yaya Rod MD Status: REG CLI Location: [facility] Date: 12/30/24 Sex: F C NCS and/or EMG Patient Report Ordering Doctor: Yaya Rod DATE OF SERVICE: 12/30/24 Tika presents with complaints of tingling in the right hand. Electrodiagnostic findings: Right median motor nerve demonstrates prolonged latency with normal amplitude and conduction velocity. Right ulnar motor nerve demonstrates normal distal latency, amplitude and conduction velocity. Normal right median and right ulnar F???waves. Prolonged right median sensory latency at the wrist. Needle EMG testing was performed in the right upper limb. All muscles tested showed no evidence of denervation with normal motor unit action potentials. Electrodiagnostic impression: This is an abnormal study. 1. Electrodiagnostic findings suggestive of right-sided median mononeuropathy. This is consistent with a mild right carpal tunnel syndrome [facility] Codes Neurology Neurology Interp Codes: 05660-30 Musc test done w/n test comp (interp) and 07094-28 Nrv cndj tst 5-6 studies (interp) 12/30/24 1333 Date Edyta De La Rosa MD CC: Dr. Edyta De La Rosa MD; Dr. Paco Wilson MD; Dr. Yaya Rod MD Date Dictated: 12/30/24 132 Date Transcribed: 12/30/241324 Tumbler Machine Operator: LOUISE Signed Normal [facility] Upper Ext Joint Only(Routine )on 12-30-2024 Upper Ext Joint Only(Routine) [facility] Imaging Services [address] [place] [address] Upper Ext Joint Only(Routine) MR#: [id number] Acct: [id number] Name: TIKA BAKER Rep #: [id number] : 1950 F 74 From: Chan Medel PCP: Dr. Paco Wilson MD Status: DEP CLI Study: Upper Ext Joint Only(Routine) Date of Exam: 0 12/30/24 Exam# [id number] Ordering Dr: Yaya Rod MD ADDENDUM by Dr. Varghese Lion MD on 03/24/25 at 1349 Addendum report for laterality. Right upper extremity. Reading Location: [facility] 03/24/25 1349 Date cc: Dr. Paco Wilson MD; Dr. Yaya Rod MD * Signed PROCEDURE: UPPER EXT JOINT ONLY(ROUTINE) 12/30/2024 REASON FOR EXAM: LOCALIZED SWELLING, MASS AND LUMP TECHNIQUE: UPPER EXT JOINT ONLY(ROUTINE) Multiplanar and multisequence images were obtained without IV contrast administration. COMPARISON: COMPARISON: None FINDINGS: Tear of the central TFCC disc. Peripheral TFCC attachments are grossly intact. Volar and dorsal radioulnar ligaments are intact. Meniscal homolog is diminutive but within normal limits. Extensor carpi ulnaris tendon and tendon sheath are intact. Probable tear of the volar scapholunate ligament. Membranous and dorsal bands are intact. Lunotriquetral ligament is intact. Moderate focal tenosynovitis of the flexor carpi radialis over a 1.8 cm length at the level of the distal radius. Trace flexor pollicis longus tenosynovitis also noted. Remaining flexor tendons are intact. Extensor tendons are intact. Median nerve and ulnar nerve are within normal limits. Negative for fracture or suspicious marrow replacement. 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 [id number] scattered degenerative changes throughout the remainder of the carpus. Small radiocarpal, distal radioulnar and triscaphe joint effusions with mild synovitis. Volar ganglion along the distal radius measuring 9 x 10 x 9 mm. Dorsal ganglion along the triscaphe joint measuring 7 x 6 x 7 mm. Additional small ganglion along the volar aspect of the ulnar styloid measuring up to 12 mm. Remaining soft tissues are intact. MRI/Upper Ext Joint Only(Routine) IMPRESSION: 1. Several small ganglia about the wrist as detailed above. 2. Moderate to advanced degenerative changes throughout the carpus, greatest at the triscaphe joint. 3. Moderate short-segment tenosynovitis of the flexor carpi radialis. 4. Tear of the central TFCC disc. 5. Tear of the volar scapholunate ligament. Reading Location: [facility] CC: Dr. Paco Wilson MD; Dr. Yaya Rod MD Tumbler Machine Operator: Signed Normal [facility] ANTINUCLEAR ANTIBODIES DIREC Ton 11-25-2024 LANE,DIRECT Negative Normal Negative [facility] Comment on above: Result Comment: Perf ormed at: [place] [id number] Acid Pumper: Keith Carlisle PhD, Phone: [phone] Performed By: #### L 500.2500, L100.0100 #### [facility] Laboratory [address] [place], [address] CCP IgG Antibodieson 025 CCP IgG Ab. 5 units Normal 0-19 [facility] Comment on above: Result Comment: Nega tive <20 Weak positive 20 - 39 Moderate positive 40 - 59 Strong positive >59 Performed at: [address] [id number] Acid Pumper: Keith Carlisle PhD, Phone: [phone] Performed By: #### L 500.2500, L100.0100 #### [facility] [address] [place], [address] Absolute lymphocyte countOrd ered By: Elizabeth Sanchez on 11-23-2024 Lymphocytes Auto (Unsp spec) [#/Vol] 3.01 10*3/uL 0.83-4.51 [facility] Absolute neutrophil countOrd ered By: Elizabeth Sanchez on 11-23-2024 Neutrophils (Bld) [#/Vol] 5.2 10*3/uL 2.0-7.7 [facility] Anion gap in Serum or Plasma Ordered By: Elizabeth Sanchez on 11-23-2024 Anion gap [Moles/Vol] 14 mmol/L 5- [facility] Automated lymphocyte count a s percentage of total leukocytesOrdered By: Elizabeth Sanchez on 11-23-2024 Lymphocytes/100 WBC Auto (Unsp spec) 33.2 % - [facility] BUN/creatinine ratioOrdered By: [facility] Daniel on 11-23-2024 Urea nitrogen/Creatinine [Mass ratio] 18.9 mg/mg 10- [facility] Basophil percentageOrdered B y: Elizabeth Sanchez on 11-23-2024 Basophils/100 WBC (Bld) 0.8 % 0-1 [facility] Bilirubin, totalOrdered By: Elizabeth Sanchez on 11-23-2024 Bilirubin [Mass/Vol] 0.29 mg/dL 0.00-1.30 [facility] CBC W/Diff, Automatedon Absolute Lymph 3.01 X10 3/uL Normal 0.83-4.51 [facility] Comment on above: Performed By: #### L 505.7010, L4600.0100, L500.4050, L501.6710, L101.9900, L100.0100, L3890.6102, L3890.6202, L3100.5475, L3890.6301 #### [facility] [address] [place], [place], [phone] Absolute Neut 5.2 X10 3/uL Normal 2.0-7.7 [facility] Comment on above: Performed By: #### L 505.7010, L4600.0100, L500.4050, L501.6710, L101.9900, L100.0100, L3890.6102, L3890.6202, L3100.5475, L3890.6301 #### [facility] [address] [place], [place], [phone] Basophils/100 WBC (Bld) 0.8 % Normal 0-1 [facility] Comment on above: Performed By: #### L 505.7010, L4600.0100, L500.4050, L501.6710, L101.9900, L100.0100, L3890.6102, L3890.6202, L3100.5475, L3890.6301 #### [facility] [address] [place], [address] (229) Eosinophils/100 WBC (Bld) 1.0 % Normal 0-5 [facility] Comment on above: Performed By: #### L 505.7010, L4600.0100, L500.4050, L501.6710, L101.9900, L100.0100, L3890.6102, L3890.6202, L3100.5475, L3890.6301 #### [facility] [address] [place], [address] ([phone]) Erythrocyte distribution width (RBC) [Ratio] 12.8 % Normal 11.6-14.6 [facility] Comment on above: Performed By: #### L 505.7010, L4600.0100, L500.4050, L501.6710, L101.9900, L100.0100, L3890.6102, L3890.6202, L3100.5475, L3890.6301 #### [facility] [address] [place], [address] [phone]) Hematocrit (Bld) [Volume fraction] 40.9 % Normal 37-47 [facility] Comment on above: Performed By: #### L 505.7010, L4600.0100, L500.4050, L501.6710, L101.9900, L100.0100, L3890.6102, L3890.6202, L3100.5475, L3890.6301 #### [facility] [address] [place], [address] [phone]) Hemoglobin (Bld) [Mass/Vol] 13.1 g/dL Normal 12.0-15.0 [facility] Comment on above: Performed By: #### L 505.7010, L4600.0100, L500.4050, L501.6710, L101.9900, L100.0100, L3890.6102, L3890.6202, L3100.5475, L3890.6301 #### [facility] [address] [place], [address] IG% 0.400 Normal 0.0-0.9 [facility] Comment on above: Result Comment: IG% - Immature Granulocytes (promyelocytes, myelocytes and metamyelocytes) > 1% indicates that a LEFT SHIFT is Present. Performed By: #### L 505.7010, L4600.0100, L500.4050, L501.6710, L101.9900, L100.0100, L3890.6102, L3890.6202, L3100.5475, L3890.6301 #### [facility] [address] [place], [address] Lymphocytes/100 WBC (Bld) 33.2 % Normal 19-41 [facility] Comment on above: Performed By: #### L 505.7010, L4600.0100, L500.4050, L501.6710, L101.9900, L100.0100, L3890.6102, L3890.6202, L3100.5475, L3890.6301 #### [facility] [address] [place], [address] MCH (RBC) [Entitic mass] 29.2 pg Normal 27.0-32.0 [facility] Comment on above: Performed By: #### L 505.7010, L4600.0100, L500.4050, L501.6710, L101.9900, L100.0100, L3890.6102, L3890.6202, L3100.5475, L3890.6301 #### [facility] [address] [place], [address] MCHC (RBC) [Mass/Vol] 32.0 g/dL Normal 32-36 [facility] Comment on above: Performed By: #### L 505.7010, L4600.0100, L500.4050, L501.6710, L101.9900, L100.0100, L3890.6102, L3890.6202, L3100.5475, L3890.6301 #### [facility] [address] [place], [address] MCV (RBC) [Entitic vol] 91.1 fL Normal 81-99 [facility] Comment on above: Performed By: #### L 505.7010, L4600.0100, L500.4050, L501.6710, L101.9900, L100.0100, L3890.6102, L3890.6202, L3100.5475, L3890.6301 #### [facility] [address] [place], [address] Monocytes/100 WBC (Bld) 7.5 % Normal 0-10 [facility] Comment on above: Performed By: #### L 505.7010, L4600.0100, L500.4050, L501.6710, L101.9900, L100.0100, L3890.6102, L3890.6202, L3100.5475, L3890.6301 #### [facility] [address] [place], [address] Neutrophils/100 WBC (Bld) 57.1 % Normal 47-70 [facility] Comment on above: Performed By: #### L 505.7010, L4600.0100, L500.4050, L501.6710, L101.9900, L100.0100, L3890.6102, L3890.6202, L3100.5475, L3890.6301 #### [facility] [address] [place], [address] Nucleated RBC (Bld) [#/Vol] 0 10*3/uL Normal 0-5 [facility] Comment on above: Performed By: #### L 505.7010, L4600.0100, L500.4050, L501.6710, L101.9900, L100.0100, L3890.6102, L3890.6202, L3100.5475, L3890.6301 #### [facility] [address] [place], [address] Platelet mean volume (Bld) [Entitic vol] 11.7 fL Normal 6.2-12.0 [facility] Comment on above: Performed By: #### L 505.7010, L4600.0100, L500.4050, L501.6710, L101.9900, L100.0100, L3890.6102, L3890.6202, L3100.5475, L3890.6301 #### [facility] [address] [place], [address] Platelets (Bld) [#/Vol] 254 10*3/uL Normal 150-450 [facility] Comment on above: Performed By: #### L 505.7010, L4600.0100, L500.4050, L501.6710, L101.9900, L100.0100, L3890.6102, L3890.6202, L3100.5475, L3890.6301 #### [facility] [address] [place], [address] RBC (Bld) [#/Vol] 4.49 10*6/uL Normal 4.2-5.4 [facility] Comment on above: Performed By: #### L 505.7010, L4600.0100, L500.4050, L501.6710, L101.9900, L100.0100, L3890.6102, L3890.6202, L3100.5475, L3890.6301 #### [facility] [address] [place], [address] RDW SD 42.4 fl Normal 35.1-43.9 [facility] Comment on above: Performed By: #### L 505.7010, L4600.0100, L500.4050, L501.6710, L101.9900, L100.0100, L3890.6102, L3890.6202, L3100.5475, L3890.6301 #### [facility] [address] [place], [address] WBC (Bld) [#/Vol] 9.1 10*3/uL Normal 4.4-11.0 [facility] Comment on above: Performed By: #### L 505.7010, L4600.0100, L500.4050, L501.6710, L101.9900, L100.0100, L3890.6102, L3890.6202, L3100.5475, L3890.6301 #### [facility] [address] [place], [address] CRPon 11-23-2024 C-REACTIVE PROT < 3.00 Normal 0.0-3.0 [facility] Comment on above: Performed By: #### L 500.2500, L100.0100 #### [facility] [address] [place], [address] Carbon dioxide, total [Moles /volume] in Central venous bloodOrdered By: Elizabeth Sanchez on 11-23-2024 CO2 [Moles/Vol] 23.3 mmol/L 21.0-32.0 [facility] Chloride assayOrdered By: Oh Sanchez on 11-23-2024 Chloride [Moles/Vol] 102 mmol/L 98-108 [facility] Comprehensive Metabolic Prof ilon 11-23-2024 Albumin [Mass/Vol] 4.0 g/dL Normal 3.4-4.8 [facility] Comment on above: Performed By: #### L 505.7010, L4600.0100, L500.4050, L501.6710, L101.9900, L100.0100, L3890.6102, L3890.6202, L3100.5475, L3890.6301 #### [facility] [address] [place], [address] Albumin/Globulin [Mass ratio] 1.4 {ratio} Normal 0.9-2.4 [facility] Comment on above: Performed By: #### L 505.7010, L4600.0100, L500.4050, L501.6710, L101.9900, L100.0100, L3890.6102, L3890.6202, L3100.5475, L3890.6301 #### [facility] [address] [place], [address] ALK PHOS 72 U/L Normal 35-104 [facility] Comment on above: Performed By: #### L 505.7010, L4600.0100, L500.4050, L501.6710, L101.9900, L100.0100, L3890.6102, L3890.6202, L3100.5475, L3890.6301 #### [facility] [address] [place], [place], [phone] ALT [Catalytic activity/Vol] 15 U/L Normal <=34 [facility] Comment on above: Performed By: #### L 505.7010, L4600.0100, L500.4050, L501.6710, L101.9900, L100.0100, L3890.6102, L3890.6202, L3100.5475, L3890.6301 #### [facility] [address] [place], [address] AST [Catalytic activity/Vol] 20 U/L Normal <=31 [facility] Comment on above: Performed By: #### L 505.7010, L4600.0100, L500.4050, L501.6710, L101.9900, L100.0100, L3890.6102, L3890.6202, L3100.5475, L3890.6301 #### [facility] [address] [place], [address] Bilirubin [Mass/Vol] 0.29 mg/dL Normal 0.00-1.30 [facility] Comment on above: Performed By: #### L 505.7010, L4600.0100, L500.4050, L501.6710, L101.9900, L100.0100, L3890.6102, L3890.6202, L3100.5475, L3890.6301 #### [facility] [address] [place], [place], [phone] ([phone]) BUN/CRE 18.9 RATIO Normal 10-20 [facility] Comment on above: Performed By: #### L 505.7010, L4600.0100, L500.4050, L501.6710, L101.9900, L100.0100, L3890.6102, L3890.6202, L3100.5475, L3890.6301 #### [facility] [address] [place], [place], [phone] (616) Calcium [Mass/Vol] 9.4 mg/dL Normal 7.6-11.0 [facility] Comment on above: Performed By: #### L 505.7010, L4600.0100, L500.4050, L501.6710, L101.9900, L100.0100, L3890.6102, L3890.6202, L3100.5475, L3890.6301 #### [facility] [address] [place], [place], [phone] ([phone]) Chloride [Moles/Vol] 102 mmol/L Normal 98-108 [facility] Comment on above: Performed By: #### L 505.7010, L4600.0100, L500.4050, L501.6710, L101.9900, L100.0100, L3890.6102, L3890.6202, L3100.5475, L3890.6301 #### [facility] [address] [place], [place], [phone] (729) CO2 [Moles/Vol] 23.3 mmol/L Normal 21.0-32.0 [facility] Comment on above: Performed By: #### L 505.7010, L4600.0100, L500.4050, L501.6710, L101.9900, L100.0100, L3890.6102, L3890.6202, L3100.5475, L3890.6301 #### [facility] [address] [place], [address] Creatinine [Mass/Vol] 1.22 mg/dL High 0.70-1.20 [facility] Comment on above: Performed By: #### L 505.7010, L4600.0100, L500.4050, L501.6710, L101.9900, L100.0100, L3890.6102, L3890.6202, L3100.5475, L3890.6301 #### [facility] [address] [place], [address] GAP 14 Normal 5-15 [facility] Comment on above: Performed By: #### L 505.7010, L4600.0100, L500.4050, L501.6710, L101.9900, L100.0100, L3890.6102, L3890.6202, L3100.5475, L3890.6301 #### [facility] [address] [place], [address] GFR/1.73 sq M.predicted among non-blacks MDRD (S/P/Bld) [Vol rate/Area] 47 mL/min/{1.73_m2} Low >60 [facility] Comment on above: Result Comment: mL/m in/1.73m2 CKD-EPI Creatinine Equation (2020) Performed By: #### L 505.7010, L4600.0100, L500.4050, L501.6710, L101.9900, L100.0100, L3890.6102, L3890.6202, L3100.5475, L3890.6301 #### [facility] [address] [place], [address] Globulin (S) [Mass/Vol] 3.0 g/dL Normal 2.2-4.2 [facility] Comment on above: Performed By: #### L 505.7010, L4600.0100, L500.4050, L501.6710, L101.9900, L100.0100, L3890.6102, L3890.6202, L3100.5475, L3890.6301 #### [facility] [address] [place], [address] Glucose [Mass/Vol] 109 mg/dL High 70-99 [facility] Comment on above: Performed By: #### L 505.7010, L4600.0100, L500.4050, L501.6710, L101.9900, L100.0100, L3890.6102, L3890.6202, L3100.5475, L3890.6301 #### [facility] [address] [place], [address] Potassium [Moles/Vol] 4.1 mmol/L Normal 3.3-5.1 [facility] Comment on above: Performed By: #### L 505.7010, L4600.0100, L500.4050, L501.6710, L101.9900, L100.0100, L3890.6102, L3890.6202, L3100.5475, L3890.6301 #### [facility] [address] [place], [address] Sodium [Moles/Vol] 139 mmol/L Normal 133-145 [facility] Comment on above: Performed By: #### L 505.7010, L4600.0100, L500.4050, L501.6710, L101.9900, L100.0100, L3890.6102, L3890.6202, L3100.5475, L3890.6301 #### [facility] [address] [place], [address] T PROT 7.0 g/dL Normal 5.9-8.4 [facility] Comment on above: Performed By: #### L 505.7010, L4600.0100, L500.4050, L501.6710, L101.9900, L100.0100, L3890.6102, L3890.6202, L3100.5475, L3890.6301 #### [facility] [address] [place], [address] Urea nitrogen [Mass/Vol] 23 mg/dL High 4-19 [facility] Comment on above: Performed By: #### L 505.7010, L4600.0100, L500.4050, L501.6710, L101.9900, L100.0100, L3890.6102, L3890.6202, L3100.5475, L3890.6301 #### [facility] [address] [place], [address] Eosinophil percentageOrdered By: Elizabeth Sanchez on 11-23-2024 Eosinophils/100 WBC (Bld) 1.0 % 0-5 [facility] Erythrocyte Sed Rateon 11-23 SED RATE 18 mm/hr Normal 0-30 [facility] Comment on above: Performed By: #### L 505.7010, L4600.0100, L500.4050, L501.6710, L101.9900, L100.0100, L3890.6102, L3890.6202, L3100.5475, L3890.6301 #### [facility] [address] [place], [address] Erythrocyte distribution wid th ratioOrdered By: Elizabeth Sanchez on 11-23-2024 Erythrocyte distribution width (RBC) [Ratio] 12.8 % 11.6-14.6 [facility] Erythrocyte distribution wid th standard deviationOrdered By: Elizabethmao Sanchez on 11-23-2024 Erythrocyte distribution width (RBC) [Ratio] 42.4 fl 35.1-43.9 [facility] Erythrocyte sedimentation ra teOrdered By: Elizabeth Sanchez on 11-23-2024 ESR (Bld) [Velocity] 18 mm/h 0-30 [facility] Glomerular filtration rate ( GFR) estimation/1.73 sq m using serum, plasma, or whole bOrdered By: Elizabeth Sanchez on 11-23-2024 GFR/1.73 sq M.predicted among non-blacks MDRD (S/P/Bld) [Vol rate/Area] 47 mL/min/{1.73_m2} Low >60 [facility] Comment on above: mL/min/1.73m2 CKD-EP I Creatinine Equation (2020) Hematocrit Auto (Bld) [Volum e fraction]Ordered By: Elizabeth Sanchez on 11-23-2024 Hematocrit (Bld) [Volume fraction] 40.9 % 37-47 [facility] Hemoglobin measurementOrdere d By: Elizabeth Sanchez on 11-23-2024 Hemoglobin (Bld) [Mass/Vol] 13.1 g/dL 12.0-15.0 [facility] Hepatitis B Surface Antibody on 11-23-2024 HEP B Surf Ab REAC Normal [facility] Comment on above: Result Comment: <8.5 mIU/mL: Non-Reactive 8.5<= x <11.5 mIU/mL: Indeterminate >=11.5 mIU/mL: Reactive Non Reactive: Inconsistent with immunity less than <10 mIU/mL Reactive: Consistent with immunity greater than or equal to 10 mIU/mL Performed By: #### L 505.7010, L4600.0100, L500.4050, L501.6710, L101.9900, L100.0100, L3890.6102, L3890.6202, L3100.5475, L3890.6301 #### [facility] [address] [facility] [place], [place], [id number] Hepatitis C Antibodyon 11-23 Hepatitis C Ab Non-Reactive Normal Nonreactive [facility] Comment on above: Result Comment: Reac tive: Presumptive evidence of antibodies to HCV. Follow CDC recommendations for supplemental testing. Non-Reactive: Antibodies to HCV were not detected; does not exclude the possibility of exposure to HCV Reactive Results are presumptive evidence of antibodies to HCV. Follow CDC recommendations for supplemental testing. Order confirmation testing: HCV Quant by PCR testing - HCVPCR #[id number] Non Reactive: < 0.8 Equivocal: >/= 0.8 to < 1.0 Reactive: >/= 1.0 The [facility] requires that a reactive/equivocal HCV antibody result be sent out for confirmation. HCV Quant by PCR testing. Performed By: #### L 500.2500, L100.0100 #### [facility] [address] [place], [place], [id number] Immature granulocytes/100 WB C Auto (Bld)Ordered By: Elizabeth Sanchez on 11-23-2024 Immature granulocytes/100 WBC (Bld) 0.400 % 0.0-0.9 [facility] Comment on above: IG% - Immature Granu locytes (promyelocytes, myelocytes and metamyelocytes) > 1% indicates that a LEFT SHIFT is Present. L3890.6102on 11-23-2024 HEP B Surf Ag Non-Reactive Normal Nonreactive [facility] Comment on above: Result Comment: Reac tive: Presumptive evidence of HBV. Repeatedly reactive samples must be confirmed using a neutralization test ([employer] HBsAg Confirmatory Test) Non-Reactive: HBsAg not detected; does not exclude the possibility of exposure to HBV Performed By: #### L 500.2500, L100.0100 #### [facility] [address] [place], [address] Laboratory - Chemistry and C hemistry - challengeOrdered By: Elizabeth Sanchez on 11-23-2024 AST [Catalytic activity/Vol] 20 U/L <32 [facility] - Microbiology an d Antimicrobial susceptibilityOrdered By: Elizabeth Sanchez on 11-23-2024 HBV surface Ag Ql (S) Non-Reactive Nonreactive [facility] Comment on above: Reactive: Presumptiv e evidence of HBV. Repeatedly reactive samples must be confirmed using a neutralization test ([employer] Propertiess HBsAg Confirmatory Test)Non-Reactive: HBsAg not detected; does not exclude the possibility of exposure to HBV MCV (mean corpuscular volume ) determinationOrdered By: Elizabeth Sanchez on 11-23-2024 MCV (RBC) [Entitic vol] 91.1 fL 81-99 [facility] Mean corpuscular hemoglobin (MCH) determinationOrdered By: Elizabeth Sanchez on 11-23-2024 MCH (RBC) [Entitic mass] 29.2 pg 27.0-32.0 [facility] Mean corpuscular hemoglobin concentration (MCHC) determinationOrdered By: Elizabeth Sanchez on 11-23-2024 MCHC (RBC) [Mass/Vol] 32.0 g/dL 32-36 [facility] Mean platelet volume determi nationOrdered By: Elizabeth Sanchez on 11-23-2024 Platelet mean volume (Bld) [Entitic vol] 11.7 fL 6.2-12.0 [facility] Monocyte percentageOrdered B y: Elizabeth Sanchez on 11-23-2024 Monocytes/100 WBC (Bld) 7.5 % 0-10 [facility] Neutrophil percentageOrdered By: Elizabeth Sanchez on 11-23-2024 Neutrophils/100 WBC (Bld) 57.1 % 47-70 [facility] Nucleated red blood cell per centageOrdered By: Elizabeth Sanchez on 11-23-2024 Nucleated RBC/100 WBC (Bld) [Ratio] 0 % 0-5 [facility] Platelet countOrdered By: Oh Snachez on 11-23-2024 Platelets (Bld) [#/Vol] 254 10*3/uL 150-450 [facility] Potassium measurement (mass/ volume)Ordered By: Elizabeth Sanchez on 11-23-2024 Potassium (Unsp spec) [Mass/Vol] 4.1 mmol/L 3.3-5.1 [facility] RBC Auto (Bld) [#/Vol]Ordere d By: Elizabeth Sanchez on 11-23-2024 RBC (Bld) [#/Vol] 4.49 10*6/uL 4.2-5.4 [facility] Rheumatoid Factoron 11-24-19 25 RHEUMATOID FAC < 10.0 Normal <15 [facility] Comment on above: Performed By: #### L 500.2500, L100.0100 #### [facility] [address] [place], [address] Serum creatinine measurement (mass/volume)Ordered By: Elizabeth Sanchez on 11-23-2024 Creatinine [Mass/Vol] 1.22 mg/dL High 0.70-1.20 [facility] Serum globulin measurementOr dered By: Elizabeth Sanchez on 11-23-2024 Globulin (S) [Mass/Vol] 3.0 g/dL 2.2-4.2 [facility] Serum glucose measurement (m ass/volume)Ordered By: Elizabeth Sanchez on 11-23-2024 Glucose [Mass/Vol] 109 mg/dL High 70-99 [facility] Serum hepatitis B virus surf [place] antibody detectionOrdered By: Elizabeth Sanchez on 11-23-2024 HBV surface Ab Ql (S) REAC [facility] Comment on above: <8.5 mIU/mL: Non-[place] ctive8.5<= x <11.5 mIU/mL: Indeterminate>=11.5 mIU/mL: Reactive Non Reactive: Inconsistent with immunity less than <10 mIU/mL Reactive: Consistent with immunity greater than or equal to 10 mIU/mL Serum or plasma C reactive p rotein measurement (mass/volume)Ordered By: Elizabeth Sanchez on 11-23-2024 CRP [Mass/Vol] mg/L 0.0-3.0 [facility] Serum or plasma alanine ta otransferase (ALT) measurementOrdered By: Elizabeth Sanchez on 11-23-2024 ALT [Catalytic activity/Vol] 15 U/L <35 [facility] Serum or plasma albumin rebeca urement (mass/volume)Ordered By: Elizabeth Sanchez on 11-23-2024 Albumin [Mass/Vol] 4.0 g/dL 3.4-4.8 [facility] Serum or plasma albumin/glob ulin mass ratioOrdered By: Elizabeth Sanchez on 11-23-2024 Albumin/Globulin [Mass ratio] 1.4 {ratio} 0.9-2.4 [facility] Serum or plasma alkaline [place] sphatase measurementOrdered By: Elizabeth Sanchez on 11-23-2024 ALP [Catalytic activity/Vol] 72 U/L 35-104 [facility] Serum or plasma calcium rebeca urement (mass/volume)Ordered By: Elizabeth Sanchez on 11-23-2024 Calcium [Mass/Vol] 9.4 mg/dL 7.6-11.0 [facility] Serum or plasma cyclic citru llinated peptide IgG antibody assay (units/volume)Ordered By: Elizabeth Sanchez on 11-23-2024 Cyclic citrullinated peptide IgG Qn 5 units 0-19 [facility] Comment on above: Negative <20 Weak po sitive 20 - 39 Moderate positive 40 - 59 Strong positive >59Performed at: [facility] [id number] Director: Keith Carlisle PhD, Phone: [phone] Serum or plasma urea nitroge n measurement (mass/volume)Ordered By: Elizabeth Sanchez on 11-23-2024 Urea nitrogen [Mass/Vol] 23 mg/dL High 4-19 [facility] Serum rheumatoid factor dete ctionOrdered By: Elizabeth Sanchez on 11-23-2024 Rheumatoid factor Ql (S) < 10.0 IU/mL <15 [facility] Sodium levelOrdered By: Akanksha Sanchez on 11-23-2024 Sodium [Moles/Vol] 139 mmol/L 133-145 [facility] Total proteinOrdered By: Mary Sanchez on 07-07-2025 Protein [Mass/Vol] 7.0 g/dL 5.9-8.4 [facility] White blood cell (WBC) count Ordered By: Elizabeth Sanchez on 11-23-2024 WBC (Bld) [#/Vol] 9.1 10*3/uL 4.4-11.0 [facility] Comprehensive Metabolic Prof ilon 06-15-2024 Albumin [Mass/Vol] 3.5 g/dL Normal 3.2-5.0 [facility] Comment on above: Performed By: #### L 500.4100, L500.4050 #### [facility] [address] [place], [address] Albumin/Globulin [Mass ratio] 1.0 {ratio} Normal 0.9-2.4 [facility] Comment on above: Performed By: #### L 500.4100, [id number] #### [facility] [address] [place], [address] ALK P 82 U/L Normal 45-117 [facility] Comment on above: Performed By: #### L 500.4100, [id number] #### [facility] [address] [place], [address] ALT [Catalytic activity/Vol] 14 U/L Normal 13-56 [facility] Comment on above: Performed By: #### L 500.4100, [id number] #### [facility] [facility] [address] [place], [address] AST [Catalytic activity/Vol] 12 U/L Low 15-37 [facility] Comment on above: Performed By: #### L 500.4100, L500.4050 #### [facility] [address] [place], [address] Bilirubin [Mass/Vol] 0.60 mg/dL Normal 0.20-1.00 [facility] Comment on above: Result Comment: For patients on eltrombopag therapy, use of Dimension [place] TBIL is not recommended. Performed By: #### L 500.4100, L500.4050 #### [facility] [address] [place], [address] BUN/CRE 19.4 RATIO Normal 10-20 [facility] Comment on above: Performed By: #### L 500.4100, L500.4050 #### [facility] [address] [place], [address] CA,Total 9.4 mg/dL Normal 8.5-10.1 [facility] Comment on above: Performed By: #### L 500.4100, L500.4050 #### [facility] [address] [place], [address] Chloride [Moles/Vol] 105 mmol/L Normal 98-107 [facility] Comment on above: Performed By: #### L 500.4100, L500.4050 #### [facility] [address] [place], [address] CO2 [Moles/Vol] 28.0 mmol/L Normal 21.0-32.0 [facility] Comment on above: Performed By: #### L 500.4100, L500.4050 #### [facility] [address] [place], [address] Creatinine [Mass/Vol] 1.03 mg/dL High 0.55-1.02 [facility] Comment on above: Result Comment: The validity of the calculated GFR GFRAA in patients over 70 years has not been determined. Clinical correlation is essential. Performed By: #### L 500.4100, L500.4050 #### [facility] [address] [place], [address] EST GFR - AA 68 mL/min Normal >60 [facility] Comment on above: Result Comment: Afri can [place] GFR Calc Performed By: #### L 500.4100, L500.4050 #### [facility] [address] [place], [address] GAP 5 Normal 5-15 [facility] Comment on above: Performed By: #### L 500.4100, L500.4050 #### [facility] [address] [place], [address] GFR/1.73 sq M.predicted among non-blacks MDRD (S/P/Bld) [Vol rate/Area] 56 mL/min/{1.73_m2} Low >60 [facility] Comment on above: Result Comment: Non- GFR Calc Performed By: #### L 500.4100, L500.4050 #### [facility] [address] [place], [address] Globulin (S) [Mass/Vol] 3.4 g/dL Normal 2.2-4.2 [facility] Comment on above: Performed By: #### L 500.4100, L500.4050 #### [facility] [address] [place], [address] Glucose [Mass/Vol] 98 mg/dL Normal 74-106 [facility] Comment on above: Performed By: #### L 500.4100, L500.4050 #### [facility] [address] [place], [address] Potassium [Moles/Vol] 4.2 mmol/L Normal 3.5-5.1 [facility] Comment on above: Performed By: #### L 500.4100, L500.4050 #### [facility] [address] [place], [address] Sodium [Moles/Vol] 138 mmol/L Normal 136-145 [facility] Comment on above: Performed By: #### L 500.4100, L500.4050 #### [facility] [address] [place], [address] T PROT 6.9 g/dL Normal 6.4-8.2 [facility] Comment on above: Performed By: #### L 500.4100, L500.4050 #### [facility] [address] [place], [address] Urea nitrogen [Mass/Vol] 20 mg/dL High 7-18 [facility] Comment on above: Performed By: #### L 500.4100, L500.4050 #### [facility] [address] [place], [address] Lipid Profileon 06-15-2024 Cholesterol [Mass/Vol] 185 mg/dL Normal 200 [facility] Comment on above: Result Comment: <200 mg/dL Desirable 200-240 mg/dL Borderline >240 mg/dL High Risk Performed By: #### L 500.4100, L500.4050 #### [facility] [address] [place], [address] Cholesterol in HDL [Mass/Vol] 70 mg/dL Normal [facility] Comment on above: Result Comment: The drugs N-Acetylcysteine and Metamizole may falsely depress this assay. Reference Range HDL <40 mg/dL Low HDL Cholesterol HDL >or= 60 mg/dL High HDL Cholesterol Performed By: #### L 500.4100, L500.4050 #### [facility] [address] [place], [address] Cholesterol in LDL [Mass/Vol] 95 mg/dL Normal 0-130 [facility] Comment on above: Performed By: #### L 500.4100, L500.4050 #### [facility] [address] [place], [address] Cholesterol in VLDL [Mass/Vol] 20 mg/dL Normal 5-40 [facility] Comment on above: Performed By: #### L 500.4100, L500.4050 #### [facility] [address] [place], [address] Triglyceride [Mass/Vol] 99 mg/dL Normal [facility] Comment on above: Result Comment: The drugs N-Acetylcysteine and Metamizole may falsely depress this assay. Serum Triglycerides Reference Interval Normal <150 mg/dL Borderline high 150 - 199 mg/dL High 200 - 499 mg/dL Very High > or = 500 mg/dL Performed By: #### L 500.4100, L500.4050 #### [facility] [address] [place], [address] Basophil percentageOrdered B y: Paco Wilson on 12-03-2022 Chloride [Moles/Vol] 109 mmol/L 98-107 [facility] Cholesterol [Mass/Vol] 172 mg/dL <200 [facility] Comment on above: <200 mg/dL Desirable 200-240 mg/dL Borderline >240 mg/dL High Risk Glucose [Mass/Vol] 88 mg/dL 74-106 [facility] Potassium [Moles/Vol] 3.8 mmol/L 3.5-5.1 [facility] Sodium [Moles/Vol] 140 mmol/L 136-145 [facility] Triglyceride [Mass/Vol] 110 mg/dL <199 [facility] Comment on above: The drugs N-Acetylcy steine and Metamizole may falsely depress this assay.Serum Triglycerides Reference Interval Normal <150 mg/dL Borderline high 150 - 199 mg/dL High 200 - 499 mg/dL Very High > or = 500 mg/dL Laboratory - Chemistry and C hemistry - challengeOrdered By: Paco Wilson on 12-03-2022 CO2 [Moles/Vol] 27.0 mmol/L 21.0-32.0 [facility] Urea nitrogen/Creatinine [Mass ratio] 15.9 mg/mg 10-20 [facility] No Panel InformationOrdered By: Paco Wilson on 12-03-2022 Estimated GFR (MDRD) Amer 82 mL/min >60 [facility] Comment on above: GFR Calc Estimated GFR (MDRD) Non-Af Amer 68 mL/min >60 [facility] Comment on above: Non- GFR Calc Serum or plasma calcium reebca urement (mass/volume)Ordered By: Paco Wilson on 12-03-2022 Calcium [Mass/Vol] 9.0 mg/dL 8.5-10.1 [facility] Serum or plasma cholesterol in HDL measurement (mass/volume)Ordered By: Paco Wilson on 12-03-2022 Cholesterol in HDL [Mass/Vol] 64 mg/dL >40 [facility] Comment on above: The drugs N-Acetylcy steine and Metamizole may falsely depress this assay. Reference Range HDL <40 mg/dL Low HDL Cholesterol HDL >or= 60 mg/dL High HDL Cholesterol Serum or plasma cholesterol in VLDL measurement (mass/volume)Ordered By: Paco Wilson on 12-03-2022 Cholesterol in VLDL [Mass/Vol] 22 mg/dL 5-40 [facility] Serum or plasma creatinine m easurement (mass/volume)Ordered By: Paco Wilson on 12-03-2022 Creatinine [Mass/Vol] 0.88 mg/dL 0.55-1.02 [facility] Comment on above: The validity of the calculated GFR & GFRAA in patients over 70 years has not been determined. Clinical correlation is essential. Serum or plasma low density lipoprotein (LDL) cholesterol measurement (mass/volume)Ordered By: Paco Wilson on 12-03-2022 Cholesterol in LDL [Mass/Vol] 86 mg/dL 0-130 [facility] Serum or plasma urea nitroge n measurement (mass/volume)Ordered By: Paco Wilson on 12-03-2022 Urea nitrogen [Mass/Vol] 14 mg/dL 7-18 [facility] Thin prep Papanicolaou smear with manual screeningOrdered By: Paco Wilson on 12-03-2022 Thin prep Papanicolaou smear with manual screening 4 5-15 [facility] Basophil percentageOrdered B y: Jigna Gaytan on 08-22-2022 Chloride [Moles/Vol] 105 mmol/L 98-107 [facility] Glucose [Mass/Vol] 104 mg/dL 74-106 [facility] Comment on above: Fasting Glucose resu lt from 100 to 125 mg/dL suggests IMPAIRED HOMEOSTASIS per A.D.A. criteria. Potassium [Moles/Vol] 4.1 mmol/L 3.5-5.1 [facility] Sodium [Moles/Vol] 139 mmol/L 136-145 [facility] Laboratory - Chemistry and C hemistry - challengeOrdered By: Jigna Gaytan on 08-22-2022 CO2 [Moles/Vol] 27.0 mmol/L 21.0-32.0 [facility] Natriuretic peptide B (Bld) [Mass/Vol] 19.9 pg/mL 0-100 [facility] Urea nitrogen/Creatinine [Mass ratio] 18.5 mg/mg 10-20 [facility] No Panel InformationOrdered By: Jigna Gaytan on 08-22-2022 Estimated GFR (MDRD) Amer 83 mL/min >60 [facility] Comment on above: GFR Calc Estimated GFR (MDRD) Non-Af Amer 69 mL/min >60 [facility] Comment on above: Non- GFR Calc Serum or plasma calcium rebeca urement (mass/volume)Ordered By: Jigna Gaytan on 08-22-2022 Calcium [Mass/Vol] 8.9 mg/dL 8.5-10.1 [facility] Serum or plasma creatinine m easurement (mass/volume)Ordered By: Jigna Gaytan on 08-22-2022 Creatinine [Mass/Vol] 0.86 mg/dL 0.55-1.02 [facility] Comment on above: The validity of the calculated GFR & GFRAA in patients over 70 years has not been determined. Clinical correlation is essential. Serum or plasma urea nitroge n measurement (mass/volume)Ordered By: Jigna Gaytan on 08-22-2022 Urea nitrogen [Mass/Vol] 16 mg/dL 7-18 [facility] Thin prep Papanicolaou smear with manual screeningOrdered By: Jigna Gaytan on 08-22-2022 Thin prep Papanicolaou smear with manual screening 7 5-15 [facility] Report: Protime w/INR Fi [email or web address] 06-27-2017 Coagulation tissue factor induced in platelet poor plasma 12.7 s Invalid Interpretation Code 11.9-14.4 [facility] Work Phone: INR in blood by coagulation 1.10 {INR} Invalid Interpretation Code [facility] Work Phone: Vital Signs Date Time Vital Sign Value Performing Clinician Mitchell chandler 08-22-2022 13:46-0400 Diastolic blood pressure 80 mm[Hg] Dr. Paco Wilson Work Phone: [facility] 08-22-2022 13:46-0400 Systolic blood pressure 140 mm[Hg] Dr. Paco Wilson Work Phone: [facility] 08-22-2022 09:14-0400 Body height 165.[address] Paco Wilson Work Phone: [facility] 08-22-2022 09:14-0400 Body mass index (BMI) [Ratio] 39.9 kg/m2 Dr. Paco Wilson Work Phone: [facility] 08-22-2022 09:14-0400 Body temperature 97 [degF] Dr. Paco Wilson Work Phone: [facility] 08-22-2022 09:14-0400 Body weight 108.[address] Paco Wilson Work Phone: [facility] 08-22-2022 09:14-0400 Heart rate 83 /min Dr. Paco Wilson Work Phone: [facility] 08-22-2022 09:14-0400 Respiratory rate 18 /min Dr. Paco Wilson Work Phone: [facility] 06-14-2022 06:17-0500 Body height 165.[address] Paco Wilson Work Phone: [facility] 06-14-2022 06:17-0500 Body mass index (BMI) [Ratio] 40.7 kg/m2 Dr. Paco Wilson Work Phone: [facility] 06-14-2022 06:17-0500 Body temperature 97.5 [degF] Dr. Paco Wilson Work Phone: [facility] 06-14-2022 06:17-0500 Body weight 111.[address] Paco Wilson Work Phone: [facility] 06-14-2022 06:17-0500 Diastolic blood pressure 102 mm[Hg] Dr. Paco Wilson Work Phone: [facility] 06-14-2022 06:17-0500 Heart rate 102 /min Dr. Paco Wilson Work Phone: [facility] 06-14-2022 06:17-0500 Respiratory rate 18 /min Dr. Paco Wilson Work Phone: [facility] 06-14-2022 06:17-0500 SaO2% (BldA) [Mass fraction] 99 % Dr. Paco Wilson Work Phone: [facility] 06-14-2022 06:17-0500 Systolic blood pressure 159 mm[Hg] Dr. Paco Wilson Work Phone: 8(092)375-772933 [address] 04-23-2022 15:30-0500 Body temperature 97.8 [degF] Dr. Paco Wilson Work Phone: 3(948)212-151933 [address] 04-23-2022 15:30-0500 Diastolic blood pressure 77 mm[Hg] Dr. Paco Wilson Work Phone: [facility] 04-23-2022 15:30-0500 Heart rate 83 /min Dr. Paco Wilson Work Phone: 0(505)142-863769 [place] [address] 04-23-2022 15:30-0500 Respiratory rate 16 /min Dr. Paco Wilson Work Phone: 9(407)902-774469 [place] [address] 04-23-2022 15:30-0500 SaO2% (BldA) [Mass fraction] 95 % Dr. Paco Wilson Work Phone: [facility] 04-23-2022 15:30-0500 Systolic blood pressure 125 mm[Hg] Dr. Paco Wilson Work Phone: [facility] 04-23-2022 12:06-0500 Body height 165.[address] Paco Wilson Work Phone: [facility] Work Phone: 04-23-2022 12:06-0500 Body mass index (BMI) [Ratio] 41.4 kg/m2 Dr. Paco Wilson Work Phone: [facility] 04-23-2022 12:06-0500 Body weight [address] Paco Wilson Work Phone: [facility] 04-04-2022 07:35-0500 Body mass index (BMI) [Ratio] 42 kg/m2 Dr. Paco Wilson Work Phone: [facility] 04-04-2022 07:35-0500 Body temperature 98.6 [degF] Dr. Paco Wilson Work Phone: [facility] 04-04-2022 07:35-0500 Body weight 114.[address] Paco Wilson Work Phone: [facility] 04-04-2022 07:35-0500 Diastolic blood pressure 87 mm[Hg] Dr. Paco Wilson Work Phone: [facility] 04-04-2022 07:35-0500 Heart rate 83 /min Dr. Paco Wilson Work Phone: [facility] 04-04-2022 07:35-0500 Respiratory rate 16 /min Dr. Paco Wilson Work Phone: [facility] 04-04-2022 07:35-0500 SaO2% (BldA) [Mass fraction] 97 % Dr. Paco Wilson Work Phone: [facility] 04-04-2022 07:35-0500 Systolic blood pressure 146 mm[Hg] Dr. Paco Wilson Work Phone: [facility] Encounters Encounter Date Encounter Type Care Provider Facility Start: 03-17-2025 End: 03-17-2025 ambulatory Paco Wilson Facility:[facility] Start: 01-11-2025 ambulatory Elizabeth Sanchez Facility :[facility] Start: 01-06-2025 End: 01-06-[address] Paco Wilson MD Work Phone: -[facility] Start: 01-06-2025 End: 01-06-[address] Elizabeth Sanchez MD -[facility] Work Phone: Start: 01-06-2025 End: 01-06-2025 ambulatory [facility] Facility:[facility] Start: 12-30-2024 Non-patient / Non-visit Dr. Edyta alvarenga MD -[facility]- Start: 12-30-2024 ambulatory Yaya Marcel [facility] Start: 12-30-2024 End: 12-30-[address] Paco Wilson MD Work Phone: [facility] Start: 12-30-2024 End: 12-30-[address] Yaya Rod MD -[facility] Work Phone: Start: 12-30-2024 End: 12-30-2024 ambulatory Yaya Rod Facility:[facility] Start: 11-23-2024 End: 11-23-[address] Paco Wilson MD Work Phone: -[facility] Start: 11-23-2024 End: 11-23-[address] Elizabeth Sanchez MD -[facility] Work Phone: Start: 11-23-2024 End: 11-23-[facility] Start: 06-15-2024 End: 06-15-2024 ambulatory Paco Wilson Facility:[facility] Start: 12-21-2022 Non-patient / Non-visit Dr. Oh Wilson Work Phone: [facility] Start: 12-19-2022 End: 12-19-[address] Paco Wilson Work Phone: [facility] Work Phone: Start: 12-19-2022 End: 12-19-[address] Paco Wilson Work Phone: [facility]-Cardiovascular Services Work Phone: Start: 12-18-2022 End: 12-18-[address] Paco Wilson Work Phone: [facility] Work Phone: Start: 12-18-2022 End: 12-18-[address] Paco Wilson Work Phone: [facility]-Outpatient Bone Densitometry Work Phone: Start: 12-03-2022 End: 12-03-[address] Paco Wilson Work Phone: [facility] Work Phone: Start: 12-03-2022 End: 12-03-[address] Paco Wilson Work Phone: [facility]: Start: 10-17-2022 End: 10-17-[address] Paco Wilson Work Phone: [facility] Work Phone: Start: 10-17-2022 End: 10-17-[address] Paco Wilson Work Phone: [facility]-Physical Therapy Start: 10-10-[address] Paco Wilson Work Phone: [facility]-Physical Therapy Start: 10-05-2022 End: 10-05-[address] Paco Wilson Work Phone: [facility] Work Phone: Start: 10-05-2022 End: 10-05-[address] Paco Wilson Work Phone: [facility]-Radiology, [facility] Start: 08-22-2022 End: 08-22-[address] Paco Wilson Work Phone: [facility]-Pulmonary Medicine [facility] Start: 08-22-2022 End: 08-22-[address] Paco Wilson Work Phone: [facility] Work Phone: Start: 08-22-2022 End: 08-22-[address] Paco Wilson Work Phone: [facility] Start: 06-14-2022 End: 06-14-[address] [facility] Start: 06-06-2022 Non-patient / Non-visit Dr. Oh Wilson Work Phone: [facility] Start: 06-06-2022 End: 06-06-[address] Paco Wilson Work Phone: [facility] Work Phone: Start: 06-06-2022 End: 06-06-[address] Paco Wilson Work Phone: [facility]-Pulmonary Services/Neurology Start: 04-23-2022 End: 04-23-2022 Admission to same day surgery center Dr. Paco Wilson Work Phone: [facility]-Surgical Day Care Start: 04-23-2022 End: 04-23-[address] Paco Wilson Work Phone: [facility] Work Phone: Start: 04-04-2022 End: 04-04-[address] [facility] Start: 03-26-2022 End: 03-26-2022 ambulatory [facility] Work Phone: Start: 03-26-2022 End: 03-26-2022 Patient encounter procedure [facility]-Outpatient Breast Imaging Procedures Date Procedure Procedure Detail Performing Clinician Start: 12-30-2024 MRI of joint of lowe r extremity Dr. Paco Wilson MD Work Phone: Start: 11-23-[address] Jeanna Wilson MD Work Phone: Comment on above: Performed at: [address] [id number] Director: Keith Carlisle PhD, Phone: [phone] Start: 11-23-2024 Hepatitis C antibody measurement Dr. Paco Wilson MD Work Phone: Comment on above: Reactive: Presumptiv e evidence of antibodies to HCV. Follow CDC recommendations for supplemental testing.Non-Reactive: Antibodies to HCV were not detected; does not exclude the possibility of exposure to HCVReactive Results are presumptive evidence of antibodies to HCV. Follow CDC recommendations for supplemental testing.Order confirmation testing: HCV Quant by PCR testing - HCVPCR #[id number] Non Reactive: < 0.8 Equivocal: >/= 0.8 to < 1.0 Reactive: >/= 1.0The CDC requires that a reactive/equivocal HCV antibody result be sent out for confirmation. HCV Quant by PCR testing. Start: 12-19-2022 Cardiovascular stres s test using pharmacologic stress agent Dr. Paco Wilson Work Phone: Start: 12-18-2022 Dual energy X-ray absorptiometry Dr. Paco Wilson Work Phone: Start: 10-05-2022 Radiography of thora cic spine Dr. Paco Wilson Work Phone: Start: 08-22-2022 Plain chest X-ray Dr. David Wilson Work Phone: Start: 04-23-2022 Implantation of neurostimulator in spine Dr. Paco Wilson Work Phone: Start: 04-23-2022 Fluoroscopic guidance Hannah Wilson Work Phone: Start: 04-23-2022 X-ray of lumbar spin e, two or three views Dr. Paco Wilson Work Phone: Start: 03-26-2022 Screening mammography Plan of Treatment Date Care Activity Detail Author Start: 04-23-2022 Anes nerve musc tendon fascia & bursae upper leg ANESTH UPPER LEG SURGERY [facility] Start: 04-23-2022 Inc impltj nstim eltrd neuromuscular OPN IMPLTJ AME NEUROMUSCULAR [facility] Start: 04-23-2022 Unlisted procedure nervous system UNLISTED PX NERVOUS SYSTEM [facility] Start: 04-23-2022 Patient discharge [facility] Measurement of respiratory function [facility] Work Phone: Patient referral [facility] Work Phone: [facility] Work Phone: Payers Date Payer Category Payer Medicare [id number] 2024 Self-pay [id number] 2016 Private Health Insurance [facility] [id number] [id number] Unknown [facility] [id number] Unknown [id number] Unknown [id number] Unknown [id number] Unknown [id number] Unknown [id number] Unknown [id number] Unknown [id number] Unknown [id number] Social History Date Type Detail Facility Start: 06-29-2021 End: 08-22-2022 Tobacco smoking status NHIS Unknown if ever smoked [facility] Start: 1950 Sex Assigned At Female [facility] Start: 08-07-2023 Tobacco smoking stat us OHIS Never smoked tobacco (finding) [facility] Medical Equipment Procedure Code Equipment Code Equipment Origin al Text Equipment Identifier Dates Insertion, spinal cord stimulator, permanent ANTIBACTERIAL ENVELOPE FDA Start: 04-23-2022 Insertion, spinal cord stimulator, permanent BATTERY FDA Start: 04-23-2022 Insertion, spinal cord stimulator, permanent LEAD KIT FDA Start: 04-23-2022 Insertion, spinal cord stimulator, permanent LEAD KIT FDA Start: 04-23-2022 Insertion, spinal cord stimulator, permanent ANTIBACTERIAL ENVELOPE FDA Start: 04-23-2022 Insertion, spinal cord stimulator, permanent BATTERY FDA Start: 04-23-2022 Insertion, spinal cord stimulator, permanent LEAD KIT FDA Start: 04-23-2022 Insertion, spinal cord stimulator, permanent LEAD KIT FDA Start: 04-23-2022 Insertion, spinal cord stimulator, permanent ANTIBACTERIAL ENVELOPE FDA Start: 04-23-2022 Insertion, spinal cord stimulator, permanent BATTERY FDA Start: 04-23-2022 Insertion, spinal cord stimulator, permanent LEAD KIT FDA Start: 04-23-2022 Insertion, spinal cord stimulator, permanent LEAD KIT FDA Start: 04-23-2022 Insertion, spinal cord stimulator, permanent ANTIBACTERIAL ENVELOPE FDA Start: 04-23-2022 Insertion, spinal cord stimulator, permanent BATTERY FDA Start: 04-23-2022 Insertion, spinal cord stimulator, permanent LEAD KIT FDA Start: 04-23-2022 Insertion, spinal cord stimulator, permanent LEAD KIT FDA Start: 04-23-2022 Insertion, spinal cord stimulator, permanent ANTIBACTERIAL ENVELOPE FDA Start: 04-23-2022 Insertion, spinal cord stimulator, permanent BATTERY FDA Start: 04-23-2022 Insertion, spinal cord stimulator, permanent LEAD KIT FDA Start: 04-23-2022 Insertion, spinal cord stimulator, permanent LEAD KIT FDA Start: 04-23-2022 Insertion, spinal cord stimulator, permanent ANTIBACTERIAL ENVELOPE FDA Start: 04-23-2022 Insertion, spinal cord stimulator, permanent BATTERY FDA Start: 04-23-2022 Insertion, spinal cord stimulator, permanent LEAD KIT FDA Start: 04-23-2022 Insertion, spinal cord stimulator, permanent LEAD KIT FDA Start: 04-23-2022 Insertion, spinal cord stimulator, permanent ANTIBACTERIAL ENVELOPE FDA Start: 04-23-2022 Insertion, spinal cord stimulator, permanent BATTERY FDA Start: 04-23-2022 Insertion, spinal cord stimulator, permanent LEAD KIT FDA Start: 04-23-2022 Insertion, spinal cord stimulator, permanent LEAD KIT FDA Start: 04-23-2022 Insertion, spinal cord stimulator, permanent ANTIBACTERIAL ENVELOPE FDA Start: 04-23-2022 Insertion, spinal cord stimulator, permanent BATTERY FDA Start: 04-23-2022 Insertion, spinal cord stimulator, permanent LEAD KIT FDA Start: 04-23-2022 Insertion, spinal cord stimulator, permanent LEAD KIT FDA Start: 04-23-2022 Insertion, spinal cord stimulator, permanent ANTIBACTERIAL ENVELOPE FDA Start: 04-23-2022 Insertion, spinal cord stimulator, permanent BATTERY FDA Start: 04-23-2022 Insertion, spinal cord stimulator, permanent LEAD KIT FDA Start: 04-23-2022 Insertion, spinal cord stimulator, permanent LEAD KIT FDA Start: 04-23-2022 Insertion, spinal cord stimulator, permanent ANTIBACTERIAL ENVELOPE FDA Start: 04-23-2022 Insertion, spinal cord stimulator, permanent BATTERY FDA Start: 04-23-2022 Insertion, spinal cord stimulator, permanent LEAD KIT FDA Start: 04-23-2022 Insertion, spinal cord stimulator, permanent LEAD KIT FDA Start: 04-23-2022 Goals Date Patient Goal Desired Activity /State Mental Status Date Assessment Result Facility 04-23-2022 Cognitive function Voice[facility]Name [facility] Work Phone: Procedure note 12-30-2024 Note Date & Type Note Facility 12-30-2024 Procedure note [facility] Discharge summary 10-17-2022 Note Date & Type Note Facility 10-17-2022 Discharge summary Note Date/Time October 17, 2022 6:56p m [facility] Physical Therapy [facility] [place] [address] / REHABILITATION SERVICES DISCHARGE SUMMARY MR#: [id number] Acct: [id number] Name: TIKA BAKER Rep #: [id number] : 1950 72 From: Jonathan Griffin Referring Dr.: Dr. Paco Wilson MD Status: REG RCR Insurance: [employer]ANCE It has been my pleasure to treat TIKA BAKER referred by Dr. Paco Wilson MD,with the diagnosis of L shoulder pain for a total of 4 visit(s). Discharge Date: 10/17/22 Please see the following information for a summary of their discharge status. Subjective: Pt. reports being overall well with her shoulder, but is now having increased low back pain. Pt. reports that she thinks that her shoulder symptoms have drastically resolved. L shoulder Pain Intensity (Out of 10): 1 % Improvement: 95 Objective/Function: ROM: Pt. has full ROM of her L shoulder with minimal pain atthis point in time. MMT: Pt. has full symmetrical strength in BUEs. Pt. did have small AC joint soreness with abduction, but minimal and resolved with cessation of testing. At this point in time, Tika can do all of her activitieswith minimal issue and no pain. She is I with her HEP. Tika will be DC from PT at this point in time. Goal 1:: LTG: Pt to be I with HEP. Goal Progress: Goal Met Goal 2:: STG: Pt. to have increased tolerance to sleeping. Goal Progress: Goal Met Goal 3:: LTG: Pt. to have full L shoulder ROM without increase in symptoms. Goal Progress: Goal Met Goal 4:: LTG: Pt. to have full L shoulder strength without increase in symptoms allowing for increased ability to complete all daily activities. Goal Progress: Goal Met Goal 5:: LTG: pt. to complete all ADLs without increase in symptoms. Goal Progress: Goal Met Plan: Pt. to be DC from PT at this point in time. Discharge Comments: Tika was treated with US and with HEP for strengthening. She did very well. She is now having minimal pain and reports being 95% better overall. She has bands and exercises to complete at home as well. Pt. will be DCfrom PT at this point in time. If there are questions or concerns regarding this patient's physical therapy, please feel free to call me at [phone]. Thank you for the referral of thispatient. Sincerely, Jonathan Michele, DPT Balance/Gait/Functional tests - Balance/Special Test Scores Quick DASH Score: 0 <Electronically signed by Jonathan Michele DPT> 10/17/22 [id number] CC: Dr. Paco Wilson MD ~ CLS Signed [facility] Work Phone: Procedure note 06-06-2022 Note Date & Type Note Facility 06-06-2022 Procedure note [facility] Evaluation note Note Date & Type Note Facility Evaluation note No assessment information availa ble [facility] Work Phone: Evaluation note Note Date & Type Note Facility Evaluation note Diagnosis Onset Date Chronic cough chronic [facility] Work Phone: Evaluation note Note Date & Type Note Facility Evaluation note Diagnosis Onset Date Chronic cough chronic Asthma acute 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 [facility] Work Phone: Evaluation note Note Date & Type Note Facility Evaluation note Diagnosis Onset Date Asthma acute 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 Shortness of breath noneacti ve [facility] Work Phone: Evaluation note Note Date & Type Note Facility Evaluation note Diagnosis Onset Date Shortness of breath noneacti ve [facility] Work Phone: Hospital Discharge instructions Note Date & Type Note Facility Hospital Discharge instructions Additional Instructions Implant Used?: Yes [facility] Work Phone: Reason for referral (narrative) Note Date & Type Note Facility Reason for referral (narrative) No reason for referral information available [facility] Work Phone: Chief Complaint and Reason for Visit Chief Complaint SCREENING Chief Complaint SCREENING Cough spinal cord stim Reason for Visit Chronic cough Chief Complaint SCREENING Cough spinal cord stim CHRONIC COUGH CHRONIC COUGH 3 M FU Reason for Visit Chronic cough Asthma 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 RX HERE Reason for Visit Shortness of breath Chief Complaint LAB AND XRAY EORDER Shortness of breath R SHOULDER PAIN. RX HERE NEED ORDER Reason for Visit Shortness of breath Chief Complaint R SHOULDER PAIN. RX HERE NEED ORDER POSTMENOPAUSAL SOB Shortness of breath Chief Complaint Admit Date PAIN- COPY PCP November 23, 2024 2:20p m Chief Complaint Admit Date PAIN- COPY PCP November 23, 2024 2:20p m RT WRIST PAIN/SWELLING,RUE, RT WRIST CAR PAL TUNNEL December 30, 2024 11:24am RT WRIST PAIN/SWELLING,RUE, RT WRIST CAR PAL TUNNEL December 30, 2024 1:25pm Family History No Family History Records Found Relationship Condition Age at Onset Recorded Date/T hal father Malignant neoplasm Unknown Cardiac disease Unknown Cerebrovascular accident (CVA) Unknown mother Hypertension Unknown Arthritis Unknown Ischemic cerebrovascular accident (CVA) U nknown Dementia Unknown Advance Directives No Advanced Directives Records Found Advance Directive Response Recorded Date/ Time Advance Directives No January 1:53pm Living Will Yes June 29, 11:50am Power of Signal Circuit Designer Yes June 29, 2021 11:50am Advance Directive Response Recorded Date/ Time Name of Medical Power of Signal Circuit Designer JAMAR BAKER April 18, 2022 3:14pm Advance Directives No January 1:53pm Living Will Yes April 18, 2 022 3:14pm Power of Signal Circuit Designer Yes April 18, 2022 3:14pm Advance Directive Response Recorded Date/ Time Advance Directives No January 2:53pm Living Will Yes April 18, 022 4:14pm Power of Signal Circuit Designer Yes April 18, 2022 4:14pm Advance Directive Response Recorded Date/ Time Advance Directives No January 2:53pm Summary Purpose Additional Source Comments Goals (unrecognized section and content) Goals may be documented in a n alternate sectionGoals may be documented in an alternate sectionGoals may be documented in an alternate sectionGoals may be documented in an alternate sectionGoals may be documented in an alternate sectionGoals may be documented in an alternate sectionGoals may be documented in an alternate sectionGoals may be documented in an alternate sectionGoals may be documented in an alternate sectionGoals may be documented in an alternate section Care Teams (unrecognized sec tion and content) Team Status: Active Member Role Status Dates Dr. Paco Wilson MD Family Provider Active Dr. Paco Wilson MD Primary Care Provider Active Team Status: Inactive Member Role Status Dates Dr. Paco Wilson MD Primary Care Provider, Referring Provider Active Dr. Adam Laguna MD Attending Provider Active Team Status: Active Member Role Status Dates Dr. Paco Wilson MD Primary Care Provider Active Dr. Adam Laguna MD Attending Provider , Referring Provider, Other Provider Active Team Status: Inactive Member Role Status Dates Dr. Paco Wilson MD Primary Care Provi susan, Attending Provider, Referring Provider Active Team Status: Inactive Member Role Status Dates Dr. Paco Wilson MD Primary Care Provider Active Dr. Adam Laguna MD Attending Provider, Referring Pr ovider Active Team Status: Inactive Member Role Status Dates Dr. Paco Wilson MD Primary Care Provider Active Dr. Efrain Nuñez MD Attending Provider, Referring Provider Active Team Status: Inactive Member Role Status Dates Dr. Paco Wilson MD Primary Care Provider, Referring Provider Active Jigna Gaytan CABLE WEAVER, CABLE WEAVER-C Attending Provider Active Team Status: Inactive Member Role Status Dates Dr. Paco Wilson MD Primary Care Provider Active Jigna Gaytan CABLE WEAVER, CABLE WEAVER-C Attending Provider, Referrin g Provider Active Team Status: Active Member Role Status Dates Dr. Paco Wilson MD Primary Care Provi susan, Attending Provider, Referring Provider Active Team Status: Active Member Role Status Dates Dr. Paco Wilson MD Primary Care Provi susan, Referring Provider, Other Provider Active Dr. Cristobal Hall MD Attending Provider Activ e Team Status: Active Member Role/Relationship Status Dates Dr. Paco Wilson MD Family Provider Active Dr. Paco Wilson MD Primary Care Provider Active Team Status: Inactive Member Role/Relationship Status Dates Dr. Paco Wilson MD Primary Care Provider Active Start: November 23, 2024 End: November 23, 2024 Dr. Elizabeth Sanchez MD Attending Provider Active Start: November 23, 2024 End: November 23, 2024 Dr. Elizabeth Sanchez MD Referring Provider Active Start: November 23, 2024 End: November 23, 2024 Team Status: Active Member Role/Relationship Status Dates Dr. Paco Wilson MD Primary Care Provider Active Team Status: Inactive Member Role/Relationship Status Dates Dr. Paco Wilson MD Primary Care Provider Active Start: December 30, 2024 End: December 30, 2024 Dr. Yaya Rod MD Attending Provider Active Start: December 30, 2024 End: December 30, 2024 Dr. Yaya Rod MD Referring Provider Active Start: December 30, 2024 End: December 30, 2024 Team Status: Active Member Role/Relationship Status Dates Dr. Paco Wilson MD Primary Care Provider Active Start: December 30, 2024 Dr. Yaya Rod MD Referring Provider Active Start: December 30, 2024 Dr. Yaya Rod MD Other Provider Active Sta rt: December 30, 2024 Dr. Edyta De La Rosa MD Attending Provider Active S tart: December 30, 2024 Team Status: Active Member Role/Relationship Status Dates Dr. Paco Wilson MD Primary Care Provider Active Start: January 06, 2025 Dr. Elizabeth Sanchez MD Attending Provider Active Start: January 06, 2025 Dr. Elizabeth Sanchez MD Referring Provider Active Start: January 06, 2025 Team Status: Inactive Member Role/Relationship Status Dates Dr. Paco Wilson MD Primary Care Provider Active Start: January 06, 2025 End: January 06, 2025 Dr. Elizabeth Sanchez MD Attending Provider Active Start: January 06, 2025 End: January 06, 2025 Dr. Elizabeth Sanchez MD Referring Provider Active Start: January 06, 2025 End: January 06, 2025 INFORMATION SOURCE (unrecogn ized section and content) DATE CREATED AUTHOR 04/01/2025 [facility] FOR RECORDS PERTAINING TO PATIENTS WHO ARE OR HAVE BEEN ENROLLED IN A CHEMICAL DEPENDENCY/SUBSTANCEABUSE PROGRAM, SOME INFORMATION MAY BE OMITTED. This clinical summary was aggregated from multiple sources. Caution should be exercised in using it in the provision of clinical care. This summary normalizes information from multiple sources, and as a consequence, information in this document may materially change the coding, format and clinical context of patient data. In addition, data may be omitted in some cases. CLINICAL DECISIONS SHOULD BE BASED ON THE PRIMARY CLINICAL RECORDS. [employer] provides no warranty or guarantee of the accuracy or completeness of information in this document.
--- NOTE | 2025-04-16 14:45 | BI_ITS ---
EXAM: SCRN MAMM (CAD)W/URIEL BILAT DATE: 04/16/2025 CLINICAL HISTORY: F, Age 75 y/o , ANNUAL SCREENING TECHNIQUE: Procedure Code: [id number] Modality: MG Procedure: SCRN MAMM (CAD)W/URIEL BILAT COMPARISON: Prior exam(s) dated 12/30/2024, 03/30/2024, and 03/27/2023. FINDINGS: TISSUE DENSITY: There are scattered areas of fibroglandular density. Bilateral Breast Mammographic Findings: There are no suspicious masses, suspicious clustered microcalcifications, architectural distortion or secondary signs of malignancy identified in either breast. Benign-appearing round microcalcifications are seen in both breasts. A benign-appearing macrocalcification is seen in the left breast. BI/SCRN MAMM (CAD)W/URIEL BILAT IMPRESSION: Benign screening mammogram OVERALL FINAL ASSESSMENT BI-RADS 2: BENIGN RECOMMENDATION: Routine annual follow-up in 1 Year Additional Recommendation none A letter with findings and recommendations will be mailed to the patient. Reading Location: [id number]
== END | disposition home or self-care (01) ==
LOC: OPBI 14:36
PROVIDERS: PCP Family Medicine; Referring Provider Family Medicine; Visit Provider Family Medicine
DX: Z12.31 Encounter for screening mammogram for malignant neoplasm of breast (principal)
CPT/HCPCS: 77063; 77067